=== PATIENT | female | born 1945 | race Caucasian/White ===

== ENCOUNTER 2017-10-04 12:57 | Emergency (ER) | payer OTHER ==
[~2017-10-04] VITALS: Ht 157.5 cm; Wt 79.2 kg
[~2017-10-04 12:57] MED LIST: ALBUAER19 INH; ALL100 PO; ALPH50CA2 PO; AMOX500C3 PO; APR25 PO; ASPI81TA21 PO; B-CO1CAP3 PO; BETAMETHASONE TD; CHOL200010 PO; CHOL4POW6 TOP; CLBCR15 EXT; CRSUNK PO; DPH/ PO; EFFSR150 PO; FENO145T26 PO; FLAXSEED PO; FLVHFAUNK INH; FRRG PO; GABA-112 PO; INSDGI SC; INSUINJ14 SC; LDXCR30 EX; LEVO-14 PO; LISI20TA3 PO; LTRCR15 TOP; METR1GEL3 TD; MOME200A INH; MONT1TAB3 PO; OMEG10007 PO; PANT40TA PO; PRDFOPS; PROP10TA7 PO; ROPI0.5T15 PO
[2017-10-04 13:13] VITALS: Ht 157.5 cm; Wt 79.2 kg
[2017-10-04] MEDS ORDERED: MoRPHine SULFATE 4 MG/ML 1 ML CARP\\VIAL IV STA (13:39)
[2017-10-04 14:09] LABS: BASO % 0.3 %; BASO ABS # 0.02 K/uL (0-0.2); EOS % 1.2 %; EOS ABS # 0.09 K/uL (0-0.5); HEMATOCRIT 44.7 % (37-47); HEMOGLOBIN 15.4 g/dL (12.0-16.0); IG# 0.04 K/uL (0.00-0.02); LYMPH % 16.9 %; LYMPH ABS # 1.32 K/uL (1.2-3.4); MEAN CELL VOLUME 99.6 fL (80-100); MEAN CORPUSCULAR HEMOGLOBIN 34.3 pg (25-34); MEAN CORPUSCULAR HGB CONC 34.5 g/dl (32-36); MONO % 10.5 %; MONO ABS # 0.82 K/uL (0.11-0.59); NEUT % 70.6 %; PLATELET COUNT 180 K/uL (130-400); RED CELL DISTRIBUTION WIDTH CV 13.4 % (11.5-14.5); RED CELL DISTRIBUTION WIDTH SD 48.4 fL (36.4-46.3); WHITE BLOOD COUNT 7.79 K/uL (4.8-10.8)
[2017-10-04 14:16] LABS: BLOOD UREA NITROGEN 24 mg/dl (7-18); CALCIUM 9.5 mg/dl (8.5-10.1); CARBON DIOXIDE 24 mmol/L (21-32); CREATININE 1.41 mg/dl (0.60-1.20); GLUCOSE 128 mg/dl (70-99); POTASSIUM 3.9 mmol/L (3.5-5.1); SODIUM 140 mmol/L (136-145)
[2017-10-04] MEDS ORDERED: PROCHLORPERAZINE 5 MG/ML 2 ML VIAL IV STA (14:45)
[2017-10-04] MEDS ORDERED: DiphenhydrAMINE HCL 50 MG/ML VIAL IV STA (14:45)
[2017-10-04] MEDS ORDERED: KETOROLAC TROMETHAMINE 60 MG/2 ML VIAL IV STA (14:45)
[2017-10-04] MEDS ORDERED: SODIUM CHLORIDE 0.9% 1000ML 1,000 ML IV STA (14:45)
[2017-10-04] MEDS ORDERED: VENL150T33 PO (15:30)
[2017-10-04] MEDS ORDERED: VNTHFA/IN INH (15:30)
[2017-10-04] MEDS ORDERED: LISI-461 PO (15:30)
[2017-10-04] MEDS ORDERED: ROSU40TA28 PO (15:30)
[2017-10-04] MEDS ORDERED: CHOL4POW4 PO (15:30)
[2017-10-04] MEDS ORDERED: GABA-1219 PO (15:30)
[2017-10-04] MEDS ORDERED: CLON0.5T3 PO (15:30)
[2017-10-04] MEDS ORDERED: ALLO100T PO (15:30)
[2017-10-04] MEDS ORDERED: NVLG SQ (15:31)
[2017-10-04] MEDS ORDERED: PRED20TA PO ×2 (15:42→16:38)
[2017-10-04] MEDS ORDERED: OXYC1TAB3 PO ×2 (15:42→16:38)
--- NOTE | 2017-10-04 15:45 | EMERGENCY ROOM VISIT NOTE ---
History First contact with patient: 13:23 Chief Complaint: FACIAL PAIN/INJURY Stated Complaint: PAIN FROM JEHOVAH'S WITNESS TO FR JAW LEFT SIDE, SWELLING History of Present Illness The patient is a 72 year old female who presents to the Emergency Room with complaints of left temporal/jaw pain. The patient reports that she has had pain in the left side of her head since yesterday evening. She had difficulty opening her mouth today due to the pain. The pain is worse with touch. The worst pain is located over the temporal region. She was seen at [facility] and they thought she may have temporal arteritis. She was sent here for further evaluation. She rates her discomfort a 10/10. She has taken Tylenol for pain with little relief. She denies any visual changes, numbness, weakness , blurred vision or slurred speech. She denies any chest pain or shortness of breath. She denies fevers, neck pain or stiffness. Review of Systems A complete 10 point review of systems was reviewed with the patient with pertinent positives and negatives as per history of present illness. All else were negative. Past Medical/Surgical History Medical Problems: (1) Diabetes mellitus, type II (2) Hypertension (3) Kidney disease Surgical Problems: (1) H/O colectomy Social History Smoking Status: Former Smoker Marital Status: Housing Status: lives with family Current/Historical Medications Scheduled Allopurinol (Zyloprim), 200 MG PO DAILY Alpha-Lipoic Acid (Thioctic Ac (Alpha Lipoic Acid), 1 CAP PO TID Aspirin Enteric Coated (Ecotrin Or Generic), 2 TABS PO QAM B-Complex Vitamins (B Complex), 1 CAP PO QAM Cholecalciferol (Vitamin D), 2 CAP PO QAM Cholestyramine (Cholestyramine), 4 GM PO BID Fenofibrate (Tricor ), 145 MG PO QPM Fish Oil ([place]-3), 1 CAP PO QAM Gabapentin (Gabapentin), 300 MG PO TID Insulin Aspart (Novolog), SQ UD Insulin Glargine (Lantus), 30 UNITS SC UD Levocetirizine Dihydrochloride (Levocetirizine Dihydrochl), 5 MG PO HS Lisinopril (Lisinopril), 10 MG PO DAILY Mometasone Furoate-Formoterol (Dulera 200/5 Mcg), 2 PUFFS INH BID Montelukast Sodium (Singulair), 10 MG PO QPM Pantoprazole Sodium (Protonix), 40 MG PO QAM Prednisone (Prednisone), 3 TABS PO DAILY Prednisone (Prednisone), 3 TABS PO DAILY Propranolol (Inderal), 10 MG PO BID Rosuvastatin Calcium (Rosuvastatin Calcium), 40 MG PO DAILY Venlafaxine Hcl (Venlafaxine Hcl Er), 150 MG PO DAILY Scheduled PRN Albuterol Hfa (Ventolin Hfa), 2-4 PUFFS INH Q6H PRN for Shortness of Breath Amoxicillin (Amoxil), 4 CAP PO 1 HOUR PRIOR TO PROC PRN for DENTAL PROCEDURES Clonazepam (Klonopin), 0.5 MG PO UD PRN for Anxiety and/or Sedation Oxycodone Ir (Roxicodone Ir), 1-2 TAB PO Q4H PRN for Pain Physical Exam Vital Signs Date Time Temp Pulse Resp B/P (MAP) Pulse Ox O2 Delivery O2 Flow Rate FiO2 10/04/17 15:56 36.7 84 20 151/75 95 10/04/17 13:13 36.7 84 20 151/75 95 Room Air Physical Exam VITALS: Vitals are noted on the nurse's note and reviewed by myself. Vital signs stable. GENERAL: This is a 72-year-old female, in no acute distress, nondiaphoretic, well-developed well-nourished. SKIN: The skin was without rashes. HEAD: Normocephalic atraumatic. There is significant tenderness to palpation over the left temporal region with light touch. EARS: External auditory canals clear, tympanic membranes pearly gonzales without erythema or effusion bilaterally. EYES: Pupils equal round and reactive to light and accommodation. Extraocular movements intact. Funduscopic exam reveals no papilledema or AV nicking. MOUTH: Mucous membranes moist. There are some whitish plaques within the mouth could be suggestive of candidiasis. NECK: Supple without nuchal rigidity. No lymphadenopathy. No meningismus. HEART: Regular rate and rhythm without murmurs gallops or rubs. LUNGS: Clear to auscultation bilaterally without wheezes, rales or rhonchi. NEURO: Patient was alert and oriented to person place and time. No focal neurological deficits. Medical Decision & Procedures Laboratory Results 10/04/17 13:45 Red Blood Count 4.49, Mean Corpuscular Volume 99.6, Mean Corpuscular Hemoglobin 34.3, Mean Corpuscular Hemoglobin Concent 34.5, Mean Platelet Volume 11.0, Neutrophils (%) (Auto) 70.6, Lymphocytes (%) (Auto) 16.9, Monocytes (%) (Auto) 10.5, Eosinophils (%) (Auto) 1.2, Basophils (%) (Auto) 0.3, Neutrophils # (Auto ) 5.50, Lymphocytes # (Auto) 1.32, Monocytes # (Auto) 0.82, Eosinophils # (Auto ) 0.09, Basophils # (Auto) 0.02 10/04/17 13:45 Test 10/04/17 13:42 10/04/17 13:45 Bedside Glucose 119 mg/dl (70-90) White Blood Count 7.79 K/uL (4.8-10.8) Red Blood Count 4.49 M/uL (4.2-5.4) Hemoglobin 15.4 g/dL (12.0-16.0) Hematocrit 44.7 % (37-47) Mean Corpuscular Volume 99.6 fL (80-100) Mean Corpuscular Hemoglobin 34.3 pg (25-34) Mean Corpuscular Hemoglobin Concent 34.5 g/dl (32-36) Platelet Count 180 K/uL (130-400) Mean Platelet Volume 11.0 fL (7.4-10.4) Neutrophils (%) (Auto) 70.6 % Lymphocytes (%) (Auto) 16.9 % Monocytes (%) (Auto) 10.5 % Eosinophils (%) (Auto) 1.2 % Basophils (%) (Auto) 0.3 % Neutrophils # (Auto) 5.50 K/uL (1.4-6.5) Lymphocytes # (Auto) 1.32 K/uL (1.2-3.4) Monocytes # (Auto) 0.82 K/uL (0.11-0.59) Eosinophils # (Auto) 0.09 K/uL (0-0.5) Basophils # (Auto) 0.02 K/uL (0-0.2) RDW Standard Deviation 48.4 fL (36.4-46.3) RDW Coefficient of Variation 13.4 % (11.5-14.5) Immature Granulocyte % (Auto) 0.5 % Immature Granulocyte # (Auto) 0.04 K/uL (0.00-0.02) Erythrocyte Sedimentation Rate 25 mm/hr (0-21) Anion Gap 11.0 mmol/L (3-11) Est Creatinine Clear Calc Drug Dose 34.6 ml/min Estimated GFR () 42.7 Estimated GFR (Non- 36.9 BUN/Creatinine Ratio 16.9 (10-20) Calcium Level 9.5 mg/dl (8.5-10.1) Troponin I < 0.015 ng/ml (0-0.045) C-Reactive Protein 0.85 mg/dl (0-0.29) Medications Administered Medications (Trade) Dose Ordered Sig/Rocky Route Start Time Stop Time Status Last Admin Dose Admin Morphine Sulfate (MoRPHine SULFATE INJ) 4 mg NOW STAT IV 10/04/17 13:39 10/04/17 13:40 DC 10/04/17 14:09 4 MG Sodium Chloride 1,000 ml @ 999 mls/hr Q1H1M STAT IV 10/04/17 14:45 10/04/17 15:45 DC 10/04/17 14:45 999 MLS/HR Prochlorperazine Edisylate (Compazine Inj) 10 mg NOW STAT IV 10/04/17 14:45 10/04/17 14:46 DC 10/04/17 15:00 10 MG Diphenhydramine HCl (Benadryl Inj) 25 mg NOW STAT IV 10/04/17 14:45 10/04/17 14:46 DC 10/04/17 15:00 25 MG Ketorolac Tromethamine (Toradol Inj) 15 mg NOW STAT IV 10/04/17 14:45 10/04/17 14:46 DC 10/04/17 15:00 15 MG Medical Decision Differential diagnosis includes temporal arteritis, CVA, TIA, migraine headache , meningitis, encephalitis, mass or mass effect, sinusitis, infection, tumor, among others. The patient is a 72-year-old female who presents today complaining of left head pain with tenderness in the temporal region. Exam and clinical history do seem consistent with temporal arteritis. No neuro deficits on exam. Labs revealed no leukocytosis. ESR mildly elevated at 25. CRP is also slightly elevated at 0.85. Creatinine is 1.41, which is patient's baseline. I did discuss the case with Dr. Vargas of neurology. He is unsure if this truly represents temporal arteritis but feels it is reasonable to start the patient on steroids. He recommended follow-up with the patient's PCP in the office. She was instructed to follow-up with them within 48 hours and arrange neurology follow-up as well. She will be placed on 60 mg of prednisone for 2 weeks and will require further taper after that. She was given OxyIR for pain. She was advised that the prednisone may affect her blood sugars and she should check them more frequently. She was advised to use a stool softener while taking narcotic pain medication. She was instructed to return here if she develops vision changes, worsening pain, neck pain/stiffness, or any other new/concerning symptoms. The patient was independently evaluated by Dr. Madrid, ED attending physician, who agreed with my assessment and treatment plan. Based on the patient's presentation and work up, I feel the patient is stable for outpatient treatment. The patient was educated to return to the emergency department for any worsening of their current condition or new/concerning symptoms. She will follow up with her PCP and neurology. [place] Drug Monitoring Program Search Results: patient reviewed within database, no issues identified Medication Reconcilliation Current Medication List: was personally reviewed by me Blood Pressure Screening Patient's blood pressure: Elevated blood pressure Blood pressure disposition: Elevated BP felt to be situational Impression Primary Impression: Temporal arteritis Departure Information Dispostion Home / Self-Care Condition GOOD Prescriptions Prednisone (Prednisone) 20 Mg Tab 3 TABS PO DAILY for 14 Days, #42 TAB 3 DAILY FOR 3 DAYS, THEN 2 DAILY FOR 3 DAYS, THEN 1 DAILY FOR 3 DAYS. Prov: Sofi Rojas PA-C 10/04/17 Oxycodone Ir (Roxicodone Ir) 5 Mg Tab 1-2 TAB PO Q4H Y for Pain, #24 TAB For Initial Treatment Prov: Sofi Rojas PA-C 10/04/17 Prednisone (Prednisone) 20 Mg Tab 3 TABS PO DAILY for 14 Days, #42 TAB 3 DAILY FOR 3 DAYS, THEN 2 DAILY FOR 3 DAYS, THEN 1 DAILY FOR 3 DAYS. Prov: Sofi Rojas PA-C 10/04/17 Referrals Jonathan Wagner M.D. (MEDICAL) (PCP) Sam, E. Rajinder, M.D. Patient Instructions My [facility] Additional Instructions You have been prescribed Prednisone. This is a steroid which will help decrease your inflammation. It is best to take steroids early in the morning as PM dosing can affect your sleeping patterns. This medication may raise your blood sugars. You have been prescribed OxyIR to be used for pain control. Take 1-2 tablets every 4-6 hours as needed for pain. This is a narcotic medication. You cannot drive or consume alcohol while on this medicine. This medicine should only be used for pain that cannot be controlled with [id number] pain medicines. You should take a stool softener while taking this medication as it may cause constipation. Follow-up with your primary care provider this week and neurology. Return to the emergency department with numbness, weakness, severe headache, vomiting, fever or any other new/concerning symptoms.
[2017-10-04 15:56] VITALS: BP 151/75; PULSE 84; TEMP 36.7; O2SAT 95
--- NOTE | 2017-10-04 18:17 | EMERGENCY ROOM VISIT NOTE ---
ED Visit Note First contact with patient: 13:55 The patient was seen and examined with Bob. I agree with the history, physical and findings. Please see the note for disposition and details.
== END 2017-10-04 15:57 | disposition home or self-care (01) ==
LOC: C.EDB 12:58 → C.EDD 15:57
DX: R51 Headache (principal); R68.84 Jaw pain; R70.0 Elevated erythrocyte sedimentation rate; R79.82 Elevated C-reactive protein (CRP); E11.22 Type 2 diabetes mellitus with diabetic chronic kidney disease; N18.9 Chronic kidney disease, unspecified; I12.9 Hypertensive chronic kidney disease with stage 1 through stage 4 chronic kidney disease, or unspecified chronic kidney disease; Z87.891 Personal history of nicotine dependence; Z79.82 Long term (current) use of aspirin; Z79.4 Long term (current) use of insulin

== ENCOUNTER 2017-10-12 19:41 | Inpatient (IN) | payer OTHER ==
[~2017-10-12] VITALS: Ht 157.5 cm; Wt 76.8 kg
[~2017-10-12 19:41] MED LIST changes: -ALBUAER19 INH; -ALL100 PO; +ALLO100T PO; -APR25 PO; -BETAMETHASONE TD; +CHOL4POW4 PO; -CHOL4POW6 TOP; -CLBCR15 EXT; +CLON0.5T3 PO; -CRSUNK PO; -DPH/ PO; -EFFSR150 PO; -FLAXSEED PO; -FLVHFAUNK INH; -FRRG PO; -GABA-112 PO; +GABA-1219 PO; -INSUINJ14 SC; -LDXCR30 EX; +LISI-461 PO; -LISI20TA3 PO; -LTRCR15 TOP; -METR1GEL3 TD; +NVLG SQ; +OXYC1TAB3 PO; -PRDFOPS; +PRED20TA PO; -ROPI0.5T15 PO; +ROSU40TA28 PO; +VENL150T33 PO; +VNTHFA/IN INH
[2017-10-12] MEDS ORDERED: ALBUT/IPRATROP 3MG/0.5MG NEB 3 ML VIAL INH STA (21:50)
--- NOTE | 2017-10-12 22:03 | DIAGNOSTIC IMAGING REPORT ---
CHEST ONE VIEW PORTABLE CLINICAL HISTORY: Sepsis dyspnea COMPARISON STUDY: 03/26/2010 FINDINGS: Poorly defined minimal parenchymal infiltrate left base. Lungs otherwise are clear. No significant cardiac enlargement. Diaphragms are smooth. IMPRESSION: Poorly defined patchy parenchymal infiltrate left base. The above report was generated using voice recognition software. It may contain grammatical, syntax or spelling errors. Electronically signed by: Jarod Peralta M.D. 10/12/2017 10:02 PM Dictated Date/Time: 10/12/2017 10:01 PM
[2017-10-12] MEDS ORDERED: LEVAQUIN 750MG / 150ML D5W IV STA (22:29)
[2017-10-12 22:36] LABS: INFLUENZA B ANTIGEN Neg for Influ B (NEG)
[2017-10-12 22:37] LABS: HEMATOCRIT 44.7 % (37-47); HEMOGLOBIN 15.9 g/dL (12.0-16.0); MEAN CELL VOLUME 99.1 fL (80-100); MEAN CORPUSCULAR HEMOGLOBIN 35.3 pg (25-34); MEAN CORPUSCULAR HGB CONC 35.6 g/dl (32-36); MEAN PLATELET VOLUME 10.5 fL (7.4-10.4); PLATELET COUNT 221 K/uL (130-400); RED CELL DISTRIBUTION WIDTH CV 13.1 % (11.5-14.5); RED CELL DISTRIBUTION WIDTH SD 47.4 fL (36.4-46.3); WHITE BLOOD COUNT 11.23 K/uL (4.8-10.8)
[2017-10-12 22:48] LABS: INR 1.1 (0.9-1.1); PTT PATIENT 35.5 SECONDS (21.0-31.0)
[2017-10-12 22:58] LABS: BASO % 0.2 %; BASO ABS # 0.02 K/uL (0-0.2); EOS % 0.3 %; EOS ABS # 0.03 K/uL (0-0.5); IG# 0.07 K/uL (0.00-0.02); LYMPH % 10.9 %; LYMPH ABS # 1.22 K/uL (1.2-3.4); MONO % 15.5 %; MONO ABS # 1.74 K/uL (0.11-0.59); NEUT % 72.5 %; NEUT ABS # 8.15 K/uL (1.4-6.5)
[2017-10-12 23:02] LABS: ALBUMIN 2.8 gm/dl (3.4-5.0); ALT/SGPT 22 U/L (12-78); BLOOD UREA NITROGEN 16 mg/dl (7-18); CALCIUM 9.6 mg/dl (8.5-10.1); CARBON DIOXIDE 27 mmol/L (21-32); CREATININE 1.19 mg/dl (0.60-1.20); GLUCOSE 142 mg/dl (70-99); LIPASE 138 U/L (73-393); POTASSIUM 4.1 mmol/L (3.5-5.1); SODIUM 131 mmol/L (136-145)
[2017-10-12] MEDS ORDERED: OXYC1TAB3 PO (23:06)
[2017-10-12] MEDS ORDERED: PRED20TA PO (23:08)
[2017-10-12 23:09] LABS: ALKALINE PHOSPHATASE 69 U/L (45-117); AST/SGOT 25 U/L (15-37); CKMB 0.6 ng/ml (0.5-3.6); PHOSPHORUS 2.2 mg/dl (2.5-4.9); TOTAL PROTEIN 8.4 gm/dl (6.4-8.2)
[2017-10-12] MEDS ORDERED: SODIUM CHLORIDE 0.9% 1000ML 1,000 ML IV STA (23:17)
--- NOTE | 2017-10-12 23:54 | EMERGENCY ROOM VISIT NOTE ---
History Report prepared by Kenyon: Carol Dominique Under the Supervision of: Dr. Ayo Carroll D.O. First contact with patient: 21:43 Chief Complaint: OTHER COMPLAINT Stated Complaint: HEADACHE,WEAK,SPUTUM W/ BLOOD History of Present Illness The patient is a 72 year old female who presents to the Emergency Room with complaints of persistent cough starting 3 days ago. The patient started coughing up thick sputum with blood today. She is feeling SOB. She has been bedridden for the past 3 days. She has no appetite and is unsteady on her feet. She has had a fever of 101. She has had these symptoms previously with pneumonia. She denies any history of PE or DVT. She is on baby aspirin. She does not smoke. She denies any alcohol use. She has a history of diabetes and stage 4 kidney disease. She has a history of bronchitis and pneumonia. She denies any history of tuberculosis. Her has had a cough recently. The patient was seen in the ED last week with headache and face pain. Her PCP said that she might have an inflamed temporal artery. Source of History: patient, family Onset: 3 days ago Position: other (global) Quality: other (cough) Timing: other (persistent) Associated Symptoms: + fevers, + SOB Note: Pt reports hemoptysis, decreased appetite. Review of Systems See HPI for pertinent positives & negatives. A total of 10 systems reviewed and were otherwise negative. Past Medical & Surgical Medical Problems: (1) Diabetes mellitus, type II (2) Hypertension (3) Kidney disease Surgical Problems: (1) H/O colectomy Family History No pertinent family history stated. Social History Smoking Status: Never Smoker Marital Status: Housing Status: lives with family Occupation Status: retired Current/Historical Medications Scheduled Allopurinol (Zyloprim), 200 MG PO DAILY Alpha-Lipoic Acid (Thioctic Ac (Alpha Lipoic Acid), 1 CAP PO TID Aspirin Enteric Coated (Ecotrin Or Generic), 2 TABS PO QAM B-Complex Vitamins (B Complex), 1 CAP PO QAM Cholecalciferol (Vitamin D), 2 CAP PO QAM Cholestyramine (Cholestyramine), 4 GM PO BID Fenofibrate (Tricor ), 145 MG PO QPM Fish Oil ([place]-3), 1 CAP PO QAM Gabapentin (Gabapentin), 300 MG PO TID Insulin Aspart (Novolog), SQ UD Insulin Glargine (Lantus), 30 UNITS SC UD Levocetirizine Dihydrochloride (Levocetirizine Dihydrochl), 5 MG PO HS Lisinopril (Lisinopril), 10 MG PO DAILY Mometasone Furoate-Formoterol (Dulera 200/5 Mcg), 2 PUFFS INH BID Montelukast Sodium (Singulair), 10 MG PO QPM Pantoprazole Sodium (Protonix), 40 MG PO QAM Prednisone (Prednisone), 3 TAB PO DAILY Propranolol (Inderal), 10 MG PO BID Rosuvastatin Calcium (Rosuvastatin Calcium), 40 MG PO DAILY Venlafaxine Hcl (Venlafaxine Hcl Er), 150 MG PO DAILY Scheduled PRN Albuterol Hfa (Ventolin Hfa), 2-4 PUFFS INH Q6H PRN for Shortness of Breath Amoxicillin (Amoxil), 4 CAP PO 1 HOUR PRIOR TO PROC PRN for DENTAL PROCEDURES Clonazepam (Klonopin), 0.5 MG PO UD PRN for Anxiety and/or Sedation Oxycodone Ir (Roxicodone Ir), 1-2 TAB PO Q4H PRN for Severe Pain Allergies Coded Allergies: Formaldehyde (Verified Allergy, Unknown, SKIN IRRTIATION AND PEELING, 10/12) Isothiazolinone Chloride (Verified Allergy, Unknown, SKIN IRRITATION AND PEELING, 10/12/17) Quaternium-15 (Verified Allergy, Unknown, SKIN IRRITATION AND PEELING, ) Physical Exam Vital Signs Date Time Temp Pulse Resp B/P (MAP) Pulse Ox O2 Delivery O2 Flow Rate FiO2 10/13/17 01:28 92 10/13/17 01:25 93 18 184/82 94 Room Air 10/12/17 23:40 87 18 153/69 94 Room Air 10/12/17 22:05 91 18 178/90 92 Room Air 10/12/17 21:59 92 Room Air 10/12/17 21:54 89 10/12/17 20:26 36.3 95 18 159/76 95 Room Air Physical Exam GENERAL: Patient is awake, alert, mildly anxious appearing, but comfortable. EYES: The conjunctivae are clear. The pupils are round and reactive. EARS, NOSE, MOUTH AND THROAT: The nose is without any evidence of any deformity. Mucous membranes are moist tongue is midline NECK: The neck is nontender and supple. RESPIRATORY: Lung sounds diminished throughout with scattered rhonchi. CARDIOVASCULAR: Tachycardic but regular. No definite murmur noted. GASTROINTESTINAL: The abdomen is soft. Bowel sounds are present in all quadrants. Abdomen is nontender MUSCULOSKELETAL/EXTREMITIES: There is no evidence of gross deformity full range of motion is noted in the hips and shoulders SKIN: There is no obvious evidence of any rash. There are no petechiae, pallor or cyanosis noted. NEUROLOGIC: Patient is awake alert and oriented x3 Medical Decision & Procedures ER Provider Diagnostic Interpretation: X-ray results as stated below per interpretation by me and the radiologist. CHEST ONE VIEW PORTABLE CLINICAL HISTORY: Sepsis dyspnea COMPARISON STUDY: 03/26/2010 FINDINGS: Poorly defined minimal parenchymal infiltrate left base. Lungs otherwise are clear. No significant cardiac enlargement. Diaphragms are smooth. IMPRESSION: Poorly defined patchy parenchymal infiltrate left base. The above report was generated using voice recognition software. It may contain grammatical, syntax or spelling errors. Electronically signed by: Jarod Peralta M.D. 10/12/2017 10:02 PM Dictated Date/Time: 10/12/2017 10:01 PM Laboratory Results 10/12/17 22:00 Red Blood Count 4.51, Mean Corpuscular Volume 99.1, Mean Corpuscular Hemoglobin 35.3, Mean Corpuscular Hemoglobin Concent 35.6, Mean Platelet Volume 10.5, Neutrophils (%) (Auto) 72.5, Lymphocytes (%) (Auto) 10.9, Monocytes (%) (Auto) 15.5, Eosinophils (%) (Auto) 0.3, Basophils (%) (Auto) 0.2, Neutrophils # (Auto ) 8.15, Lymphocytes # (Auto) 1.22, Monocytes # (Auto) 1.74, Eosinophils # (Auto ) 0.03, Basophils # (Auto) 0.02 10/12/17 22:00 Test 10/12/17 21:55 10/12/17 22:00 10/12/17 22:15 10/12/17 22:17 Influenza Type A (RT-PCR) POS for Influ A (NEG) Influenza Type A Antigen Neg for Influ A (NEG) Influenza Type B Antigen Neg for Influ B (NEG) Influenza Type B (RT-PCR) Neg for Influ B (NEG) White Blood Count 11.23 K/uL (4.8-10.8) Red Blood Count 4.51 M/uL (4.2-5.4) Hemoglobin 15.9 g/dL (12.0-16.0) Hematocrit 44.7 % (37-47) Mean Corpuscular Volume 99.1 fL (80-100) Mean Corpuscular Hemoglobin 35.3 pg (25-34) Mean Corpuscular Hemoglobin Concent 35.6 g/dl (32-36) Platelet Count 221 K/uL (130-400) Mean Platelet Volume 10.5 fL (7.4-10.4) Neutrophils (%) (Auto) 72.5 % Lymphocytes (%) (Auto) 10.9 % Monocytes (%) (Auto) 15.5 % Eosinophils (%) (Auto) 0.3 % Basophils (%) (Auto) 0.2 % Neutrophils # (Auto) 8.15 K/uL (1.4-6.5) Lymphocytes # (Auto) 1.22 K/uL (1.2-3.4) Monocytes # (Auto) 1.74 K/uL (0.11-0.59) Eosinophils # (Auto) 0.03 K/uL (0-0.5) Basophils # (Auto) 0.02 K/uL (0-0.2) RDW Standard Deviation 47.4 fL (36.4-46.3) RDW Coefficient of Variation 13.1 % (11.5-14.5) Immature Granulocyte % (Auto) 0.6 % Immature Granulocyte # (Auto) 0.07 K/uL (0.00-0.02) Erythrocyte Sedimentation Rate > 90 mm/hr (0-21) Prothrombin Time 11.5 SECONDS (9.0-12.0) Prothromb Time International Ratio 1.1 (0.9-1.1) Activated Partial Thromboplast Time 35.5 SECONDS (21.0-31.0) Partial Thromboplastin Ratio 1.4 Anion Gap 11.0 mmol/L (3-11) Est Creatinine Clear Calc Drug Dose 40.4 ml/min Estimated GFR () 52.4 Estimated GFR (Non- 45.3 BUN/Creatinine Ratio 13.8 (10-20) Calcium Level 9.6 mg/dl (8.5-10.1) Phosphorus Level 2.2 mg/dl (2.5-4.9) Magnesium Level 1.9 mg/dl (1.8-2.4) Total Bilirubin 0.5 mg/dl (0.2-1) Aspartate Amino Transf (AST/SGOT) 25 U/L (15-37) Alanine Aminotransferase (ALT/SGPT) 22 U/L (12-78) Alkaline Phosphatase 69 U/L (45-117) Total Creatine Kinase 161 U/L (26-192) Creatine Kinase MB 0.6 ng/ml (0.5-3.6) Creatine Kinase MB Ratio 0.4 (0-3.0) Troponin I < 0.015 ng/ml (0-0.045) C-Reactive Protein 33.00 mg/dl (0-0.29) Pro-B-Type Natriuretic Peptide 281 pg/ml (0-900) Total Protein 8.4 gm/dl (6.4-8.2) Albumin 2.8 gm/dl (3.4-5.0) Globulin 5.6 gm/dl (2.5-4.0) Albumin/Globulin Ratio 0.5 (0.9-2) Lipase 138 U/L (73-393) Bedside D-Dimer > 450 ng/mlFEU (0-450) Bedside Lactic Acid Venous 1.67 mmol/L (0.90-1.70) Test 10/12/17 22:21 Venous Blood pH 7.42 (7.36-7.41) Venous Blood Partial Pressure CO2 42 mmHg (38.0-50.0) Venous Blood Partial Pressure O2 65 mmHg Venous Blood HCO3 27 mmol/L Venous Blood Oxygen Saturation 92.6 % Venous Blood Base Excess 1.9 mEq/L Laboratory results per my review. Medications Administered Medications (Trade) Dose Ordered Sig/Rocky Route Start Time Stop Time Status Last Admin Dose Admin Albuterol/ Ipratropium (Duoneb) 3 ml NOW STAT INH 10/12/17 21:50 10/12/17 21:51 DC 10/12/17 22:04 3 ML Levofloxacin (Levaquin / D5W) 750 mg NOW STAT IV 10/12/17 22:29 10/12/17 22:30 DC 10/12/17 22:34 750 MG Sodium Chloride 1,000 ml @ 999 mls/hr Q1H1M STAT IV 10/12/17 23:17 10/13/17 00:17 DC 10/12/17 23:40 999 MLS/HR Methylprednisolone Sodium Succinate (Solu-Medrol IV) 20 mg NOW STAT IV 10/13/17 00:51 10/13/17 00:52 DC 10/13/17 01:11 20 MG ECG Per My Interpretation Indication: SOB/dyspnea Rate (beats per minute): 91 Rhythm: normal sinus Findings: no ectopy, other (no acute ST segment abnormality) Comparison ECG Date: 04-Oct-2017 Change: Resolution of PVC otherwise no significant change. ED Course 2145: The patient was evaluated in room A2. A complete history and physical examination were performed. 0: Duoneb 3 ml INH. 2228: Levofloxacin 750 mg IV. 8: I reevaluated the patient. I updated her and her family on the results. 2317: NSS 1000 ml @ 999 mls/hr IV. 2318: Upon reevaluation, the patient is stable. I discussed results and treatment plan with her and her family. They verbalizes agreement and understanding. The patient will be evaluated for further management and care. 2332: I discussed the patient's [facility] The patient will be evaluated for further management. Medical Decision Prior records/ancillary studies reviewed. Triage Nursing notes reviewed. Additional history obtained from the family. The patient's history was concerning for respiratory difficulties. Differential diagnosis: Etiologies such as infections, reactive airway disease, pneumonia, pneumothorax , COPD, CHF, cardiac ischemia, pulmonary embolism, musculoskeletal, gastrointestinal, as well as others were entertained. The patient is a 72-year-old female who presented to the emergency department for evaluation of cough. The patient had a productive cough. She had bloody sputum noted. She appears to have a history and physical exam consistent with pneumonia. The patient was treated with IV fluids bronchodilator therapy and IV antibiotics. She was reevaluated multiple times. I discussed patient's laboratory and radiographic studies with her and her family members. I also discussed her case with the on-call [facility] group. They have agreed to evaluate the patient in the emergency department for further management and disposition. Medication Reconcilliation Current Medication List: was personally reviewed by me Blood Pressure Screening Patient's blood pressure: Elevated blood pressure Blood pressure disposition: Referred to PCP Consults Time Called: 2320 Consulting Physician: Dr. Stahl [facility] hospitalist Returned Call: [phone] I discussed the patient's case with him. The patient will be evaluated for further management. Impression Primary Impression: Pneumonia Scribe Attestation The scribe's documentation has been prepared under my direction and personally reviewed by me in its entirety. I confirm that the note above accurately reflects all work, treatment, procedures, and medical decision making performed by me. Departure Information Dispostion Being Evaluated By Hospitalist Referrals Jonathan Wagner M.D. (MEDICAL) (PCP) Patient Instructions My [facility] Problem Qualifiers Primary Impression: Pneumonia Pneumonia type: due to unspecified organism Laterality: left Lung location : unspecified part of lung Qualified Codes: J18.9 - Pneumonia, unspecified organism
[2017-10-13] MEDS ORDERED: METHYLPREDNISOLONE IV 20 MG in SYRINGE 0 ML IV STA ×2 (00:44→03:17)
[2017-10-13] MEDS ORDERED: OPTIRAY 320 IV PRN (01:00)
[2017-10-13 01:41] LABS: INFLUENZA A PCR POS for Influ A (NEG); INFLUENZA B PCR Neg for Influ B (NEG)
[2017-10-13] MEDS ORDERED: OSELTAMIVIR PHOSPHATE 75 MG CAP PO STA (02:24)
[2017-10-13] MEDS: OSELTAMIVIR PHOSPHATE 75 MG CAP PO SCH (02:38)
[2017-10-13] MEDS ORDERED: LEVALBUTEROL/IPRATROPIUM NEB INH SCH (03:00)
[2017-10-13] MEDS ORDERED: OXYCODONE HCL IR 5 MG TAB (IMMEDIATE RELEASE) PO PRN (03:00)
[2017-10-13] MEDS ORDERED: LEVALBUTEROL/IPRATROPIUM NEB INH PRN (03:00)
[2017-10-13] MEDS ORDERED: CLONAZEPAM 0.5 MG TAB PO PRN (03:00)
[2017-10-13] MEDS ORDERED: DOXYCYCLINE IV 100 MG in DEXTROSE 5% 100ML 100 ML IV STA (03:15)
[2017-10-13] MEDS ORDERED: GLUCOSE 10 TABS/TUBE PO PRN (03:15)
[2017-10-13] MEDS ORDERED: DEXTROSE 50% 50 ML SYR IV PRN (03:15)
[2017-10-13] MEDS ORDERED: INSULIN ASPART 100 UNITS/ML 3 ML PEN SC STA (03:15)
[2017-10-13] MEDS ORDERED: GLUCAGON FOR INJ 1 MG VIAL SQ PRN (03:15)
[2017-10-13] MEDS ORDERED: MoRPHine SULFATE 4 MG/ML 1 ML CARP\\VIAL IV PRN (03:15)
[2017-10-13] MEDS ORDERED: ACETAMINOPHEN 325 MG TAB PO PRN ×2 (03:15→09:15)
[2017-10-13] MEDS ORDERED: GLUCOSE 40% GEL 15 GM TUBE PO PRN (03:15)
[2017-10-13] MEDS ORDERED: PROCHLORPERAZINE INJ 5 MG in SYRINGE 4 ML IV PRN (03:15)
[2017-10-13] MEDS ORDERED: INSULIN GLARGINE SOLOSTAR 100 UNITS/ML 3 ML PEN SC STA (03:16)
[2017-10-13] MEDS ORDERED: LEVALBUTEROL 1.25MG/0.5ML NEB INH PRN (03:30)
[2017-10-13] MEDS ORDERED: IPRATROPIUM BROMIDE NEB SOLN 0.02% 2.5 ML VIAL INH PRN (03:30)
[2017-10-13] MEDS ORDERED: NSS + 20MEQ KCL 1000ML 1,000 ML IV ONE (04:00)
[2017-10-13 04:50] VITALS: BP 166/84; PULSE 89; TEMP 36.7; Ht 157.5 cm; Wt 76.8 kg
[2017-10-13] MEDS ORDERED: PROPRANOLOL HCL 10 MG TAB PO ONE (05:05)
--- NOTE | 2017-10-13 06:50 | DIAGNOSTIC IMAGING REPORT ---
CT ANGIOGRAM OF THE CHEST CLINICAL HISTORY: Atypical chest pain. Hemoptysis. COMPARISON STUDY: Chest x-ray dated 10/12/2017 TECHNIQUE: Following the IV administration of 92 mL of Optiray-320, CT angiogram of the thorax was performed from the thoracic inlet to the lung bases utilizing the pulmonary embolus protocol. Images are reviewed in the axial, sagittal, and coronal planes. IV contrast was administered without complication. MIP imaging was performed. A dose lowering technique was utilized adhering to the principles of ALARA. CT DOSE: FINDINGS: There are multiple mediastinal lymph nodes at the upper limits of normal in size. There was no evidence of thoracic aortic dilatation. There is respiratory motion artifact. There are no pulmonary artery filling defects to indicate acute pulmonary embolism. No pleural effusions are visualized. The study is compromised due to respiratory motion artifact. There is no lobar consolidation. There are no pleural effusions. There is mild bronchial wall thickening. There is evidence of tracheomalacia. There is a 7 mm solid right lower lobe pulmonary nodule as visualized in image #[id number]. There are scattered ill-defined upper lobe nodules, statistically infectious/inflammatory. IMPRESSION: 1. Study limited secondary to respiratory motion artifact 2. No evidence of acute pulmonary embolism 3. Tracheomalacia 4. Areas of bronchial wall thickening and ill-defined nodularity, statistically infectious/inflammatory 5. 7 mm solid right lower lobe pulmonary nodule. Follow-up per Fleischner criteria is recommended. Please refer to below summary of Fleischner criteria recommendations for follow-up of incidental CT nodules (Kasandra Newell, Guidelines for management of small pulmonary nodules detected on CT scans: A statement from the Fleischner Society, Radiology 237: [phone].) SOLID NODULES Solitary nodule size: <6 mm * low risk patients: no follow-up needed * high risk patients: optional CT at 12 months Solitary nodule size: 6-8 mm * low risk patients: follow-up at 6-12 months, then consider further follow-up at 18-24 months * high risk patients: initial follow-up CT at 6-12 months and then at 18-24 months if no change Solitary nodule size: >8 mm * either low or high risk patients - consider follow-up CT at 3 months, and/or CT-PET, and/or biopsy Multiple nodules size: <6 mm * low risk patients: no routine follow-up * high risk patients: optional CT at 12 months Multiple nodules size: 6-8 mm * low risk patients: follow-up at 3-6 months, then consider further follow-up at 18-24 months * high risk patients: follow-up at 3-6 months, then at 18-24 months if no change Multiple nodules size: >8 mm * low risk patients: follow-up at 3-6 months, then consider further follow-up at 18-24 months * high risk patients: follow-up at 3-6 months, then at 18-24 months if no change Note: newly detected indeterminate nodule in persons 35 years of age or older. * low risk patients: minimal or absent history of smoking and/or other known risk factors * high risk patients: history of smoking or of other known risk factors (e.g. first degree relative with lung cancer, or exposure to asbestos, radon, uranium) * if a nodule up to 8 mm is partly solid or is ground glass further follow-up is required after 24 months to exclude possible slow growing adenocarcinoma (VIOLET) SUBSOLID NODULES Solitary pure ground-glass nodule * nodule size <6 mm - no CT follow-up required * nodule size >=6 mm - follow-up CT at 6-12 months, then every 2 years until 5 years Solitary part-solid nodule * nodule size <6 mm - no CT follow-up required * nodule size >=6 mm - follow-up CT at 3-6 months. If unchanged, and solid component remains <6 mm, then annual follow-up for 5 years Multiple subsolid nodules * nodule size <6 mm - follow-up CT at 3-6 months, consider further follow-up at 2 and 4 years if stable * nodule size >=6 mm - follow-up CT at 3-6 months, subsequent management based on the most suspicious nodule(s) Electronically signed by: Sven Cantu M.D. 10/13/2017 6:48 AM Dictated Date/Time: 10/13/2017 6:43 AM
--- NOTE | 2017-10-13 07:14 | DIAGNOSTIC IMAGING REPORT ---
CT OF THE HEAD WITHOUT CONTRAST CLINICAL HISTORY: Headache. COMPARISON STUDY: Head CT February 15, 2007 and MRI of the brain November 26, 2007. CT DOSE: 2002.43 mGy.cm TECHNIQUE: Helical axial images of the head were obtained without IV contrast. Automated exposure control was utilized for the study. A dose lowering technique was utilized adhering to the principles of ALARA. FINDINGS: No acute intracranial hemorrhage, midline shift or mass effect is present. Ventricular system is normal. Basilar cisterns are patent. There are no extra-axial collections. Garcia-white differentiation is maintained. There are no findings to suggest acute dural sinus thrombosis or acute territorial infarct. There are no significant calvarial abnormalities. The bilateral maxillary sinuses are nearly completely opacified. There is extensive mucosal thickening with the remainder of the sinuses with air-fluid levels within the frontal and sphenoid sinuses. IMPRESSION: 1. No acute intracranial findings. 2. Pansinusitis, possibly acute. Electronically signed by: Estrada Salinas M.D. 10/13/2017 7:12 AM Dictated Date/Time: 10/13/2017 7:10 AM
[2017-10-13 07:27] VITALS: BP 126/70; PULSE 88; TEMP 36.7; O2SAT 92
[2017-10-13 07:34] LABS: BASO % 0.2 %; BASO ABS # 0.02 K/uL (0-0.2); IG# 0.04 K/uL (0.00-0.02); LYMPH % 6.6 %; LYMPH ABS # 0.65 K/uL (1.2-3.4); MEAN CELL VOLUME 99.1 fL (80-100); MEAN CORPUSCULAR HEMOGLOBIN 35.4 pg (25-34); MEAN CORPUSCULAR HGB CONC 35.7 g/dl (32-36); MEAN PLATELET VOLUME 10.7 fL (7.4-10.4); MONO % 5.2 %; MONO ABS # 0.51 K/uL (0.11-0.59); NEUT % 87.6 %; NEUT ABS # 8.65 K/uL (1.4-6.5); PLATELET COUNT 187 K/uL (130-400); RED CELL DISTRIBUTION WIDTH CV 13.2 % (11.5-14.5); RED CELL DISTRIBUTION WIDTH SD 47.4 fL (36.4-46.3); WHITE BLOOD COUNT 9.87 K/uL (4.8-10.8)
[2017-10-13] MEDS: LEVALBUTEROL 1.25MG/0.5ML NEB INH SCH ×3 (07:37→20:08)
[2017-10-13] MEDS: IPRATROPIUM BROMIDE NEB SOLN 0.02% 2.5 ML VIAL INH SCH ×3 (07:37→20:08)
[2017-10-13] MEDS: ALLOPURINOL 100 MG TAB PO SCH (07:38)
[2017-10-13] MEDS: ROSUVASTATIN CALCIUM 20 MG TAB PO SCH (07:39)
[2017-10-13] MEDS: GABAPENTIN 300 MG CAP PO SCH ×3 (07:39→21:52)
[2017-10-13] MEDS: VITAMIN B COMPLEX TAB PO SCH (07:39)
[2017-10-13] MEDS: LISINOPRIL 10 MG TAB PO SCH (07:39)
[2017-10-13] MEDS: ASPIRIN 81 MG ECTAB PO SCH (07:39)
[2017-10-13] MEDS: ENOXAPARIN 40 MG/0.4 ML SYR SQ SCH (07:39)
[2017-10-13] MEDS: VENLAFAXINE HCL XR 150 MG CAPXR PO SCH (07:39)
[2017-10-13] MEDS: PANTOprazole SOD 40 MG TAB PO SCH (07:39)
[2017-10-13] MEDS ORDERED: PROPRANOLOL HCL 10 MG TAB PO SCH (08:00)
[2017-10-13] MEDS: INSULIN ASPART 100 UNITS/ML 3 ML PEN SC SCH ×4 (08:35→22:05)
[2017-10-13] MEDS: INSULIN GLARGINE SOLOSTAR 100 UNITS/ML 3 ML PEN SC SCH ×2 (08:35→22:04)
--- NOTE | 2017-10-13 08:41 | DIAGNOSTIC IMAGING REPORT ---
ABDOMEN AND PELVIS CT WITH IV CONTRAST CT DOSE: HISTORY: Generalized abdominal pain. TECHNIQUE: Multiaxial CT images of the abdomen and pelvis were performed following the use of intravenous contrast. A dose lowering technique was utilized adhering to the principles of ALARA. COMPARISON STUDY: None. FINDINGS: Mild motion artifact. Please refer to the dedicated chest CT performed today for further evaluation of the lung bases. No pneumoperitoneum. No pneumatosis. No acute fractures within the visualized osseous structures. No hepatic or splenic masses. A few calcified splenic granulomas. The gallbladder, pancreas, and adrenal glands are unremarkable. No retroperitoneal lymphadenopathy. Multiple bilateral subcentimeter renal hypodense lesions. These are too small to characterize but statistically represent cysts. No hydronephrosis. The uterus is surgically absent. The bladder is not well-distended but likely unremarkable. Postoperative changes consistent with total proctocolectomy. No dilated loops of small bowel to suggest an obstruction. Right lower quadrant ileostomy. Small peristomal hernia. IMPRESSION: 1. 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 2. No bowel wall thickening or obstruction. 3. Small right lower quadrant peristomal hernia. Electronically signed by: Thad Henry M.D. 10/13/2017 8:40 AM Dictated Date/Time: 10/13/2017 8:35 AM
[2017-10-13 08:53] LABS: CALCIUM 9.5 mg/dl (8.5-10.1); CREATININE 1.08 mg/dl (0.60-1.20); POTASSIUM 4.5 mmol/L (3.5-5.1)
--- NOTE | 2017-10-13 09:24 | Progress Note ---
Progress Note Date of Service Oct 13, 2017. Progress Note Subjective: Patient seen and examined around 9 AM this morning. Daughter at bedside. Patient returns from bathroom and ambulating on room air. Patient does report history of headaches but not in pain currently Physical Exam General: no acute distress HEENT: breathing on room air Lungs: good air entry, no wheezing Heart: RRR Imaging CTA 1. Study limited secondary to respiratory motion artifact 2. No evidence of acute pulmonary embolism 3. Tracheomalacia 4. Areas of bronchial wall thickening and ill-defined nodularity, statistically infectious/inflammatory 5. 7 mm solid right lower lobe pulmonary nodule. Follow-up per Fleischner criteria is recommended. CT abdomen 1. 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 2. No bowel wall thickening or obstruction. 3. Small right lower quadrant peristomal hernia Head CT: No acute intracranial findings Labs: Influenza A positive Plan: Patient with cough for several days and found to be flu positive -Continue Tamiflu -History of COPD, former smoker, flu may excerbated COPD: continue IV solumedrol, continue Doxycycline, inhalers, nebulizers -No definitive imaging evidence for pneumonia, however pulmonary nodule identified on CT chest, history of smoking, will need follow up CT imaging as outpatient to rule out inflammatory process vs malignancy -persistent cough: treat flu, treat COPD, start Tessalon Perles and guaifenesin , follow up CXR on 10/14/17 AM -Hypertension, stable. -DM2, insulin requiring, well controlled as of recent HgA1c. -hx meningioma/migraine as per records, was scheduled for outpatient workup to rule out temporal arteritis, on steroids now primarily for respiratory symptoms , continue steroids, acetaminophen prn for headache or fever -DVT prophylaxis, Lovenox subcu. Daughter [phone] Full Code
[2017-10-13] MEDS: CHOLESTYRAMINE LIGHT 4 GM PKT PO SCH ×2 (10:13→22:00)
--- NOTE | 2017-10-13 10:36 | HISTORY & PHYSICAL EXAMINATION ---
DATE OF ADMISSION: 10/13/2017 PRIMARY CARE DOCTOR: Dr. Wagner. CHIEF COMPLAINT: Hemoptysis, cough, shortness of breath. HISTORY OF PRESENT ILLNESS: History obtained from patient, family, and records . Medical history significant for COPD, past tobacco abuse, reflux, migraine history, history of meningioma, hypertension, DM2 insulin requiring, and IBD status post surgery. Last few days, the patient had cough productive of yellow sputum, later blood tinged, increasing shortness of breath, pleuritic chest pain in the right lower rib, no unusual leg swelling. Patient also complaining of achy abdominal discomfort, headache from coughing. Sick . Patient was seen at PCP's office a few days ago. Impression was viral URI. Mucinex, rest, fluids recommended. May need prednisone pack as per note. Patient brought to the Emergency Room. She received Levaquin and DuoNebs for possible pneumonia. MEDICAL HISTORY: As above. SURGERIES: She has had bowel surgery, hysterectomy, appendectomy, knee surgery. HOME MEDICATIONS: Include oxycodone, Protonix, Inderal, rosuvastatin, venlafaxine, Lantus to be transitioned to Levemir when she runs out of the former medication. levocetirizine, lisinopril, Dulera, Singulair, vitamin D, cholestyramine, Klonopin, Tricor, fish oil, gabapentin, Ventolin, Zyloprim, alpha-lipoic acid, aspirin, beta complex. ALLERGIES: TO FORMALIN, ISOTHIAZOLINONE CHLORIDE, QUATERNIUM. FAMILY HISTORY: Rheumatoid arthritis, hypertension, diabetes, heart disease. PERSONAL AND SOCIAL HISTORY: Past tobacco use. No chronic intake of alcoholic beverages. 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 REVIEW OF SYSTEMS: As per HPI, all 10 systems, all other ROS negative. PHYSICAL EXAMINATION: VITAL SIGNS: Blood pressure was noted to be 159/76, pulse rate 95, RR 22, temperature 36.7, sats 95% on room air. GENERAL: Noted to be in respiratory distress, uncomfortable, obese. SKIN: Normal color. Warm. HEENT: Haskins palpebral conjunctivae . No ptosis. Dry mucosa. NECK: Short neck, supple. CHEST: Expiratory wheezes, no chest wall tenderness. HEART: Regular rate and rhythm. Palpable LE pulses. ABDOMEN: Some distention. Ostomy noted on the right side. No overt tenderness. EXTREMITIES: Minimal LE edema. No tenderness. No gross deformities. NEUROLOGIC: Coherent. No gross focality. LABORATORY DATA: Hemoglobin was noted to be 15.9, hematocrit 44.7, white blood cells 11.3, platelets 221. Sodium noted to be 131, potassium 4.1, chloride 93, CO2 of 27, BUN 16, creatinine 1.19, glucose 142. Hemoglobin A1c from 06/[address] head, no acute pathology on initial read. CTA, bronchitis, no PE on initial read. CT abdomen and pelvis initial read, postop changes, no bowel wall thickening, right lower quadrant ileostomy, small right lower quadrant parastomal hernia. EKG as per my interpretation rate 90, NSR, no ischemia, low voltage Flu swab was positive for pneumonia. ASSESSMENT: 1. Chronic obstructive pulmonary disease exacerbation/complicated bronchitis/ influenza pneumonia No sepsis. 2. Hypertension, stable. 3. DM2, insulin requiring, well controlled as of recent outpatient HgA1c. 4. Inflammatory bowel disease, status post surgery. 5. hx meningioma/migraine as per records 6. Past tobacco abuse. PLAN: GMF Doxycycline, nebs, prednisone course Tamiflu course. Basal insulin, ISS BG goal 140-180. DVT prophylaxis, Lovenox subcu. Full code. MTDD
[2017-10-13] MEDS: BENZONATATE 100MG CAP PO SCH ×2 (14:24→22:03)
[2017-10-13 14:25] VITALS: PULSE 71; O2SAT 97
[2017-10-13] MEDS: GUAIFENESIN SUGAR FREE 100 MG/5 ML UDC PO PRN (15:05)
[2017-10-13 16:08] VITALS: BP 135/60; PULSE 93; TEMP 36.3; O2SAT 93
[2017-10-13 20:08] VITALS: PULSE 76; O2SAT 96
[2017-10-13] MEDS ORDERED: FENOFIBRATE 145 MG TAB PO SCH (21:00)
[2017-10-13] MEDS ORDERED: MONTELUKAST SOD 10 MG TAB PO SCH (21:00)
[2017-10-13] MEDS: DOXYCYCLINE HYCLATE 100 MG CAP PO SCH (21:52)
[2017-10-13] MEDS: PROPRANOLOL HCL 10 MG TAB PO SCH (21:53)
[2017-10-13 23:45] VITALS: BP 148/78; PULSE 68; TEMP 36.4; O2SAT 94
[2017-10-14] VITALS (7 sets, daily range): BP systolic 138–176; BP diastolic 75–77; PULSE 74–90; TEMP 35.2–37; O2SAT 94–96
[2017-10-14] MEDS: IPRATROPIUM BROMIDE NEB SOLN 0.02% 2.5 ML VIAL INH SCH ×3 (02:05→14:03)
[2017-10-14] MEDS: LEVALBUTEROL 1.25MG/0.5ML NEB INH SCH ×3 (02:05→14:04)
[2017-10-14] MEDS: VITAMIN B COMPLEX TAB PO SCH (07:31)
[2017-10-14] MEDS: PANTOprazole SOD 40 MG TAB PO SCH (07:31)
[2017-10-14] MEDS: VENLAFAXINE HCL XR 150 MG CAPXR PO SCH (07:32)
[2017-10-14] MEDS: LISINOPRIL 10 MG TAB PO SCH (07:32)
[2017-10-14] MEDS: ROSUVASTATIN CALCIUM 20 MG TAB PO SCH (07:32)
[2017-10-14] MEDS: DOXYCYCLINE HYCLATE 100 MG CAP PO SCH (07:32)
[2017-10-14] MEDS: ALLOPURINOL 100 MG TAB PO SCH (07:32)
[2017-10-14] MEDS: ASPIRIN 81 MG ECTAB PO SCH (07:32)
[2017-10-14] MEDS: OSELTAMIVIR PHOSPHATE 75 MG CAP PO SCH (07:32)
[2017-10-14] MEDS: GABAPENTIN 300 MG CAP PO SCH ×2 (07:32→14:00)
[2017-10-14] MEDS: PROPRANOLOL HCL 10 MG TAB PO SCH (07:32)
[2017-10-14] MEDS: ENOXAPARIN 40 MG/0.4 ML SYR SQ SCH (07:33)
[2017-10-14] MEDS: BENZONATATE 100MG CAP PO SCH ×2 (08:16→14:00)
--- NOTE | 2017-10-14 08:16 | DIAGNOSTIC IMAGING REPORT ---
CHEST 2 VIEWS ROUTINE CLINICAL HISTORY: Cough COMPARISON STUDY: 10/12/2017 FINDINGS: The heart is normal in size. There is no focal pulmonary consolidation. A linear opacity at the right lung bases likely atelectatic. There is no failure. There are no pleural effusions.[ IMPRESSION: No evidence of focal pulmonary consolidation Electronically signed by: Sven Cantu M.D. 10/14/2017 8:15 AM Dictated Date/Time: 10/14/2017 8:12 AM
[2017-10-14] MEDS: INSULIN ASPART 100 UNITS/ML 3 ML PEN SC SCH ×2 (08:17→12:27)
[2017-10-14] MEDS: INSULIN GLARGINE SOLOSTAR 100 UNITS/ML 3 ML PEN SC SCH (08:19)
[2017-10-14 09:04] LABS: BASO % 0.3 %; BASO ABS # 0.04 K/uL (0-0.2); EOS % 0.2 %; EOS ABS # 0.02 K/uL (0-0.5); HEMATOCRIT 44.4 % (37-47); HEMOGLOBIN 15.6 g/dL (12.0-16.0); IG# 0.14 K/uL (0.00-0.02); LYMPH % 17.3 %; LYMPH ABS # 2.18 K/uL (1.2-3.4); MEAN CELL VOLUME 97.8 fL (80-100); MEAN CORPUSCULAR HEMOGLOBIN 34.4 pg (25-34); MEAN CORPUSCULAR HGB CONC 35.1 g/dl (32-36); MEAN PLATELET VOLUME 10.6 fL (7.4-10.4); MONO % 10.4 %; MONO ABS # 1.31 K/uL (0.11-0.59); NEUT % 70.7 %; NEUT ABS # 8.94 K/uL (1.4-6.5); PLATELET COUNT 251 K/uL (130-400); RED CELL DISTRIBUTION WIDTH CV 13.3 % (11.5-14.5); RED CELL DISTRIBUTION WIDTH SD 47.6 fL (36.4-46.3); WHITE BLOOD COUNT 12.63 K/uL (4.8-10.8)
[2017-10-14 09:45] LABS: ALBUMIN 2.8 gm/dl (3.4-5.0); CALCIUM 10.1 mg/dl (8.5-10.1); CREATININE 1.32 mg/dl (0.60-1.20)
[2017-10-14 09:48] LABS: TOTAL PROTEIN 8.4 gm/dl (6.4-8.2)
[2017-10-14] MEDS: CHOLESTYRAMINE LIGHT 4 GM PKT PO SCH (10:22)
[2017-10-14 11:03] LABS: POTASSIUM 3.9 mmol/L (3.5-5.1)
[2017-10-14] MEDS: GUAIFENESIN SUGAR FREE 100 MG/5 ML UDC PO PRN ×2 (11:29)
[2017-10-14] MEDS ORDERED: RBTUDL5 PO (12:28)
[2017-10-14] MEDS ORDERED: BENZ100C7 PO (12:28)
[2017-10-14] MEDS ORDERED: PRD20 PO (12:30)
[2017-10-14] MEDS ORDERED: DXY100 PO (12:30)
[2017-10-14] MEDS ORDERED: TMF75 PO (12:30)
--- NOTE | 2017-10-14 13:00 | Progress Note ---
Internal Med Progress Note Date of Service: Oct 14, 2017. Provider Documentation: SUBJECTIVE: Patient reports that coughing still present but much better than yesterday. Patient reports she is ready to go home OBJECTIVE: Physical Exam General: no acute distress HEENT: breathing on room air Lungs: good air entry, no wheezing Heart: RRR Extremities: no edema ASSESSMENT & PLAN: Imaging CTA 1. Study limited secondary to respiratory motion artifact 2. No evidence of acute pulmonary embolism 3. Tracheomalacia 4. Areas of bronchial wall thickening and ill-defined nodularity, statistically infectious/inflammatory 5. 7 mm solid right lower lobe pulmonary nodule. Follow-up per Fleischner criteria is recommended. CT abdomen 1. 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 2. No bowel wall thickening or obstruction. 3. Small right lower quadrant peristomal hernia Head CT: No acute intracranial findings Labs: Influenza A positive Plan: Patient with cough for several days and found to be flu positive -Continue Tamiflu on discharge -History of COPD, former smoker, flu may exacerbated COPD, continue home inhalers, continue on discharge prednisone and doxycycline -persistent cough from flu and COPD, continue on discharge start Tessalon Perles and guaifenesin -No definitive imaging evidence for pneumonia, however pulmonary nodule identified on CT chest, history of smoking, will need follow up CT imaging as outpatient to rule out inflammatory process vs malignancy -Hypertension, stable, continue home medications -DM2, insulin requiring, continue home medications -hx meningioma/migraine as per records, was scheduled for outpatient workup to rule out temporal arteritis, on steroids now primarily for respiratory symptoms , continue steroids, acetaminophen prn for headache or fever Patient to be discharged with follow up for primary care clinic at [address] Wagner on 10/19/17 at 12:45 PM Appointments can be re-scheduled with [phone] Vital Signs: Date Time Temp Pulse Resp B/P (MAP) Pulse Ox O2 Delivery O2 Flow Rate FiO2 10/14/17 08:30 96 Room Air 10/14/17 08:25 37.0 10/14/17 08:08 35.2 90 14 138/75 (96) 96 Room Air 10/14/17 08:00 Room Air 10/14/17 07:29 76 176/77 (110) 10/14/17 07:10 77 18 94 Room Air 10/14/17 02:05 74 18 94 Room Air 10/14/17 00:00 Room Air 10/13/17 23:45 36.4 68 20 148/78 (101) 94 Room Air 10/13/17 20:08 76 18 96 Room Air 10/13/17 16:08 36.3 93 18 135/60 (85) 93 Room Air 10/13/17 16:00 Room Air 10/13/17 14:25 71 18 97 Room Air Lab Results: Results Past 24 Hours Test 10/13/17 16:43 10/13/17 18:34 10/13/17 19:49 10/14/17 07:43 Range/Units Bedside Glucose 250 266 170 70-90 mg/dl Urine Color YELLOW Urine Appearance CLOUDY CLEAR Urine pH 5.0 4.5-7.5 Urine Specific Calvin 1.023 1.000-1.030 Urine Protein TRACE NEG Urine Glucose (UA) 2+ NEG Urine Ketones NEG NEG Urine Occult Blood NEG NEG Urine Nitrite NEG NEG Urine Bilirubin NEG NEG Urine Urobilinogen NEG NEG Urine Leukocyte Esterase NEG NEG Urine WBC (Auto) 1-5 0-5 /hpf Urine RBC (Auto) 0-4 0-4 /hpf Urine Hyaline Casts (Auto) 5-10 0-5 /lpf Urine Epithelial Cells (Auto) 20-30 0-5 /lpf Urine Bacteria (Auto) NEG NEG Test 10/14/17 08:38 10/14/17 10:11 10/14/17 11:49 Range/Units White Blood Count 12.63 4.8-10.8 K/uL Red Blood Count 4.54 4.2-5.4 M/uL Hemoglobin 15.6 12.0-16.0 g/dL Hematocrit 44.4 37-47 % Mean Corpuscular Volume 97.8 80-100 fL Mean Corpuscular Hemoglobin 34.4 25-34 pg Mean Corpuscular Hemoglobin Concent 35.1 32-36 g/dl Platelet Count 251 130-400 K/uL Mean Platelet Volume 10.6 7.4-10.4 fL Neutrophils (%) (Auto) 70.7 % Lymphocytes (%) (Auto) 17.3 % Monocytes (%) (Auto) 10.4 % Eosinophils (%) (Auto) 0.2 % Basophils (%) (Auto) 0.3 % Neutrophils # (Auto) 8.94 1.4-6.5 K/uL Lymphocytes # (Auto) 2.18 1.2-3.4 K/uL Monocytes # (Auto) 1.31 0.11-0.59 K/uL Eosinophils # (Auto) 0.02 0-0.5 K/uL Basophils # (Auto) 0.04 0-0.2 K/uL RDW Standard Deviation 47.6 36.4-46.3 fL RDW Coefficient of Variation 13.3 11.5-14.5 % Immature Granulocyte % (Auto) 1.1 % Immature Granulocyte # (Auto) 0.14 0.00-0.02 K/uL Sodium Level 136 136-145 mmol/L Potassium Level 3.9 3.5-5.1 mmol/L Chloride Level 101 98-107 mmol/L Carbon Dioxide Level 26 21-32 mmol/L Anion Gap 9.0 3-11 mmol/L Blood Urea Nitrogen 31 7-18 mg/dl Creatinine 1.32 0.60-1.20 mg/dl Est Creatinine Clear Calc Drug Dose 36.4 ml/min Estimated GFR () 46.3 Estimated GFR (Non- 39.9 BUN/Creatinine Ratio 23.3 10-20 Random Glucose 199 70-99 mg/dl Calcium Level 10.1 8.5-10.1 mg/dl Total Bilirubin 0.5 0.2-1 mg/dl Aspartate Amino Transf (AST/SGOT) 24 15-37 U/L Alanine Aminotransferase (ALT/SGPT) 25 12-78 U/L Alkaline Phosphatase 74 45-117 U/L Total Protein 8.4 6.4-8.2 gm/dl Albumin 2.8 3.4-5.0 gm/dl Globulin 5.6 2.5-4.0 gm/dl Albumin/Globulin Ratio 0.5 0.9-2 Bedside Glucose 259 70-90 mg/dl
--- NOTE | 2017-10-14 13:19 | Discharge Instructions ---
Discharge Instructions Date of Service Oct 14, 2017. Admission Reason for Admission: Copd Exacerbation Discharge Discharge Diagnosis / Problem: Influenza A, COPD, coughing, pulmonary nodule Discharge Goals Goal(s): Improve function Activity Recommendations Activity Limitations: per Instructions/Follow-up section . Instructions / Follow-Up Instructions / Follow-Up Imaging CTA 1. Study limited secondary to respiratory motion artifact 2. No evidence of acute pulmonary embolism 3. Tracheomalacia 4. Areas of bronchial wall thickening and ill-defined nodularity, statistically infectious/inflammatory 5. 7 mm solid right lower lobe pulmonary nodule. Follow-up per Fleischner criteria is recommended. CT abdomen 1. 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 2. No bowel wall thickening or obstruction. 3. Small right lower quadrant peristomal hernia Head CT: No acute intracranial findings Labs: Influenza A positive Plan: Patient with cough for several days and found to be flu positive -Continue Tamiflu on discharge -History of COPD, former smoker, flu may exacerbated COPD, continue home inhalers, continue on discharge prednisone and doxycycline -persistent cough from flu and COPD, continue on discharge start Tessalon Perles and guaifenesin -No definitive imaging evidence for pneumonia, however pulmonary nodule identified on CT chest, history of smoking, will need follow up CT imaging as outpatient to rule out inflammatory process vs malignancy -Hypertension, stable, continue home medications -DM2, insulin requiring, continue home medications -hx meningioma/migraine as per records, was scheduled for outpatient workup to rule out temporal arteritis, on steroids now primarily for respiratory symptoms , continue steroids, acetaminophen prn for headache or fever Patient to be discharged with follow up for primary care clinic at [address] Wagner on 10/19/17 at 12:45 PM Appointments can be re-scheduled with [phone] Current Hospital Diet Patient's current hospital diet: Clear Liquid Diet Discharge Diet Recommended Diet: Regular Diet Pending Studies Studies pending at discharge: no Laboratory Results 10/14/17 08:38 Red Blood Count 4.54, Mean Corpuscular Volume 97.8, Mean Corpuscular Hemoglobin 34.4, Mean Corpuscular Hemoglobin Concent 35.1, Mean Platelet Volume 10.6, Neutrophils (%) (Auto) 70.7, Lymphocytes (%) (Auto) 17.3, Monocytes (%) (Auto) 10.4, Eosinophils (%) (Auto) 0.2, Basophils (%) (Auto) 0.3, Neutrophils # (Auto ) 8.94, Lymphocytes # (Auto) 2.18, Monocytes # (Auto) 1.31, Eosinophils # (Auto ) 0.02, Basophils # (Auto) 0.04 10/14/17 08:38 10/14/17 10:11 Test 10/12/17 21:55 10/12/17 22:00 10/12/17 22:15 10/12/17 22:17 Influenza Type A (RT-PCR) POS for Influ A (NEG) Influenza Type A Antigen Neg for Influ A (NEG) Influenza Type B Antigen Neg for Influ B (NEG) Influenza Type B (RT-PCR) Neg for Influ B (NEG) Erythrocyte Sedimentation Rate > 90 mm/hr (0-21) Prothrombin Time 11.5 SECONDS (9.0-12.0) Prothromb Time International Ratio 1.1 (0.9-1.1) Activated Partial Thromboplast Time 35.5 SECONDS (21.0-31.0) Partial Thromboplastin Ratio 1.4 Phosphorus Level 2.2 mg/dl (2.5-4.9) Magnesium Level 1.9 mg/dl (1.8-2.4) Total Creatine Kinase 161 U/L (26-192) Creatine Kinase MB 0.6 ng/ml (0.5-3.6) Creatine Kinase MB Ratio 0.4 (0-3.0) Troponin I < 0.015 ng/ml (0-0.045) C-Reactive Protein 33.00 mg/dl (0-0.29) Pro-B-Type Natriuretic Peptide 281 pg/ml (0-900) Lipase 138 U/L (73-393) Bedside D-Dimer > 450 ng/mlFEU (0-450) Bedside Lactic Acid Venous 1.67 mmol/L (0.90-1.70) Test 10/12/17 22:21 10/13/17 18:34 10/14/17 08:38 10/14/17 10:11 Venous Blood pH 7.42 (7.36-7.41) Venous Blood Partial Pressure CO2 42 mmHg (38.0-50.0) Venous Blood Partial Pressure O2 65 mmHg Venous Blood HCO3 27 mmol/L Venous Blood Oxygen Saturation 92.6 % Venous Blood Base Excess 1.9 mEq/L Urine Color YELLOW Urine Appearance CLOUDY (CLEAR) Urine pH 5.0 (4.5-7.5) Urine Specific [place] 1.023 (1.000-1.030) Urine Protein TRACE (NEG) Urine Glucose (UA) 2+ (NEG) Urine Ketones NEG (NEG) Urine Occult Blood NEG (NEG) Urine Nitrite NEG (NEG) Urine Bilirubin NEG (NEG) Urine Urobilinogen NEG (NEG) Urine Leukocyte Esterase NEG (NEG) Urine WBC (Auto) 1-5 /hpf (0-5) Urine RBC (Auto) 0-4 /hpf (0-4) Urine Hyaline Casts (Auto) 5-10 /lpf (0-5) Urine Epithelial Cells (Auto) 20-30 /lpf (0-5) Urine Bacteria (Auto) NEG (NEG) White Blood Count 12.63 K/uL (4.8-10.8) Red Blood Count 4.54 M/uL (4.2-5.4) Hemoglobin 15.6 g/dL (12.0-16.0) Hematocrit 44.4 % (37-47) Mean Corpuscular Volume 97.8 fL (80-100) Mean Corpuscular Hemoglobin 34.4 pg (25-34) Mean Corpuscular Hemoglobin Concent 35.1 g/dl (32-36) Platelet Count 251 K/uL (130-400) Mean Platelet Volume 10.6 fL (7.4-10.4) Neutrophils (%) (Auto) 70.7 % Lymphocytes (%) (Auto) 17.3 % Monocytes (%) (Auto) 10.4 % Eosinophils (%) (Auto) 0.2 % Basophils (%) (Auto) 0.3 % Neutrophils # (Auto) 8.94 K/uL (1.4-6.5) Lymphocytes # (Auto) 2.18 K/uL (1.2-3.4) Monocytes # (Auto) 1.31 K/uL (0.11-0.59) Eosinophils # (Auto) 0.02 K/uL (0-0.5) Basophils # (Auto) 0.04 K/uL (0-0.2) RDW Standard Deviation 47.6 fL (36.4-46.3) RDW Coefficient of Variation 13.3 % (11.5-14.5) Immature Granulocyte % (Auto) 1.1 % Immature Granulocyte # (Auto) 0.14 K/uL (0.00-0.02) Anion Gap 9.0 mmol/L (3-11) Est Creatinine Clear Calc Drug Dose 36.4 ml/min Estimated GFR () 46.3 Estimated GFR (Non- 39.9 BUN/Creatinine Ratio 23.3 (10-20) Calcium Level 10.1 mg/dl (8.5-10.1) Total Bilirubin 0.5 mg/dl (0.2-1) Alanine Aminotransferase (ALT/SGPT) 25 U/L (12-78) Alkaline Phosphatase 74 U/L (45-117) Total Protein 8.4 gm/dl (6.4-8.2) Albumin 2.8 gm/dl (3.4-5.0) Globulin 5.6 gm/dl (2.5-4.0) Albumin/Globulin Ratio 0.5 (0.9-2) Aspartate Amino Transf (AST/SGOT) 24 U/L (15-37) Test 10/14/17 11:49 Bedside Glucose 259 mg/dl (70-90) Date/Time Source Procedure Growth Status 10/12/17 22:21 Blood Blood Culture - Preliminary NO GROWTH TO DATE. Resulted 10/13/17 12:15 Sputum Expectorated Sputum Gram Stain - Final Resulted 10/13/17 12:15 Sputum Expectorated Sputum Sputum Culture Pending Resulted Medical Emergencies . Who to Call and When: Medical Emergencies: If at any time you feel your situation is an emergency, please call 911 immediately. . Non-Emergent Contact Non-Emergency issues call your: Primary Care Provider . . "Provider Documentation" section prepared by Chris Prakash. . VTE Core Measure Inpt VTE Proph given/why not?: Enoxaparin (Lovenox)SQ
--- NOTE | 2017-10-14 13:20 | Discharge Summary ---
Discharge Summary Date of Service Oct 14, 2017. Discharge Summary Admission Date: Oct 13, 2017 at 02:45 Discharge Date: Oct 14, 2017 Discharge Disposition: Home Principal Diagnosis: Influenza A, COPD, coughing, pulmonary nodule Medication Reconciliation New Medications: Benzonatate (Benzonatate) 100 Mg Cap 100 MG PO TID for 5 Days, #15 CAP Doxycycline Hyclate (Doxycycline Hyclate) 100 Mg Cap 100 MG PO BID for 5 Days, #10 CAP Guaifenesin (Robitussin) 100 Mg/5 Ml Shira 100 MG PO Q6H PRN for Cough for 5 Days, #1 BTL Oseltamivir Phosphate (Tamiflu) 75 Mg Cap 75 MG PO BID for 3 Days, #6 CAP Prednisone (Prednisone) 20 Mg Tab 0 PO DAILY for 6 Days, #7 TAB take 40 mg x 2 days, 20 mg x 2 days, 10 mg x 2 days Continued Medications: Albuterol Hfa (Ventolin Hfa) 200 Puffs/29116 Mcg Aers 2-4 PUFFS INH Q6H PRN for Shortness of Breath Allopurinol (Zyloprim) 100 Mg Tab 200 MG PO DAILY Alpha-Lipoic Acid (Thioctic Ac (Alpha Lipoic Acid) 50 Mg Cap 1 CAP PO TID Aspirin Enteric Coated (Ecotrin Or Generic) 81 Mg Tab 2 TABS PO QAM, TAB B-Complex Vitamins (B Complex) 1 Cap Cap 1 CAP PO QAM Cholecalciferol (Vitamin D) 2,000 Unit Cap 2 CAP PO QAM Cholestyramine (Cholestyramine) 4 Gm Pow 4 GM PO BID Clonazepam (Klonopin) 0.5 Mg Tab 0.5 MG PO UD PRN for Anxiety and/or Sedation Fenofibrate (Tricor ) 145 Mg Tab 145 MG PO QPM, 0 Refills Fish Oil ([place]-3) 1 Ea Cap 1 CAP PO QAM, CAP Gabapentin (Gabapentin) 300 Mg Cap 300 MG PO TID Insulin Aspart (Novolog) 100 Units/Ml Inj SQ UD Insulin Glargine (Lantus) 100 Unit/Ml Inj 30 UNITS SC UD Levocetirizine Dihydrochloride (Levocetirizine Dihydrochl) 5 Mg Tab 5 MG PO HS Lisinopril (Lisinopril) 10 Mg Tab 10 MG PO DAILY Mometasone Furoate-Formoterol (Dulera 200/5 Mcg) 1 Aer Aer 2 PUFFS INH BID, GM Montelukast Sodium (Singulair) 10 Mg Tab 10 MG PO QPM, TAB Oxycodone Ir (Roxicodone Ir) 5 Mg Tab 1-2 TAB PO Q4H PRN for Severe Pain, #12 TAB Pantoprazole Sodium (Protonix) 40 Mg Tab 40 MG PO QAM, #30 TAB Propranolol (Inderal) 10 Mg Tab 10 MG PO BID, 0 Refills Rosuvastatin Calcium (Rosuvastatin Calcium) 40 Mg Tab 40 MG PO DAILY Venlafaxine Hcl (Venlafaxine Hcl Er) 150 Mg Tab 150 MG PO DAILY, 2 Refills Discontinued Medications: Amoxicillin (Amoxil) 500 Mg Cap 4 CAP PO 1 HOUR PRIOR TO PROC PRN for DENTAL PROCEDURES Prednisone (Prednisone) 20 Mg Tab 3 TAB PO DAILY, #12 TAB FOR 4 DAYS Admission Information HPI (per Admitting provider): CHIEF COMPLAINT: Hemoptysis, cough, shortness of breath. HISTORY OF PRESENT ILLNESS: History obtained from patient, family, and records . Medical history significant for COPD, past tobacco abuse, reflux, migraine history, history of meningioma, hypertension, DM2 insulin requiring, and IBD status post surgery. Last few days, the patient had cough productive of yellow sputum, later blood tinged, increasing shortness of breath, pleuritic chest pain in the right lower rib, no unusual leg swelling. Patient also complaining of achy abdominal discomfort, headache from coughing. Sick . Patient was seen at PCP's office a few days ago. Impression was viral URI. Mucinex, rest, fluids recommended. May need prednisone pack as per note. Patient brought to the Emergency Room. She received Levaquin and DuoNebs for possible pneumonia. Physical Exam (per Admitting): PHYSICAL EXAMINATION: VITAL SIGNS: Blood pressure was noted to be 159/76, pulse rate 95, RR 22, temperature 36.7, sats 95% on room air. GENERAL: Noted to be in respiratory distress, uncomfortable, obese. SKIN: Normal color. Warm. HEENT: [place] palpebral conjunctivae . No ptosis. Dry mucosa. NECK: Short neck, supple. CHEST: Expiratory wheezes, no chest wall tenderness. HEART: Regular rate and rhythm. Palpable LE pulses. ABDOMEN: Some distention. Ostomy noted on the right side. No overt tenderness. EXTREMITIES: Minimal LE edema. No tenderness. No gross deformities. NEUROLOGIC: Coherent. No gross focality. Hospital Course Imaging CTA 1. Study limited secondary to respiratory motion artifact 2. No evidence of acute pulmonary embolism 3. Tracheomalacia 4. Areas of bronchial wall thickening and ill-defined nodularity, statistically infectious/inflammatory 5. 7 mm solid right lower lobe pulmonary nodule. Follow-up per Fleischner criteria is recommended. CT abdomen 1. 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 2. No bowel wall thickening or obstruction. 3. Small right lower quadrant peristomal hernia Head CT: No acute intracranial findings Labs: Influenza A positive Plan: Patient with cough for several days and found to be flu positive -Continue Tamiflu on discharge -History of COPD, former smoker, flu may exacerbated COPD, continue home inhalers, continue on discharge prednisone and doxycycline -persistent cough from flu and COPD, continue on discharge start Tessalon Perles and guaifenesin -No definitive imaging evidence for pneumonia, however pulmonary nodule identified on CT chest, history of smoking, will need follow up CT imaging as outpatient to rule out inflammatory process vs malignancy -Hypertension, stable, continue home medications -DM2, insulin requiring, continue home medications -hx meningioma/migraine as per records, was scheduled for outpatient workup to rule out temporal arteritis, on steroids now primarily for respiratory symptoms , continue steroids, acetaminophen prn for headache or fever Patient to be discharged with follow up for primary care clinic at [address] Wagner on 10/19/17 at 12:45 PM Appointments can be re-scheduled with [phone] Total time spent on discharge = 60 minutes This includes examination of the patient, discharge planning, medication reconciliation, and communication with other providers. Discharge Instructions see above
== END 2017-10-14 14:10 | disposition home or self-care (01) | DRG 194 ==
LOC: C.EDB 19:43 → C.MS4W 10-13 02:45 → ENRESERV 10-13 02:56 → EDBEDREQ 10-13 02:57
PROVIDERS: ADMIT Internal Medicine; ATTEND Hospitalist
DX: J10.1 Influenza due to other identified influenza virus with other respiratory manifestations (principal); J44.1 Chronic obstructive pulmonary disease with (acute) exacerbation; N18.4 Chronic kidney disease, stage 4 (severe); R91.1 Solitary pulmonary nodule; E11.22 Type 2 diabetes mellitus with diabetic chronic kidney disease; I12.9 Hypertensive chronic kidney disease with stage 1 through stage 4 chronic kidney disease, or unspecified chronic kidney disease; K21.9 Gastro-esophageal reflux disease without esophagitis; G43.909 Migraine, unspecified, not intractable, without status migrainosus; Z51.81 Encounter for therapeutic drug level monitoring; Z79.899 Other long term (current) drug therapy; Z79.4 Long term (current) use of insulin; Z79.82 Long term (current) use of aspirin; Z79.52 Long term (current) use of systemic steroids; Z87.19 Personal history of other diseases of the digestive system; Z98.890 Other specified postprocedural states; Z87.891 Personal history of nicotine dependence; Z88.8 Allergy status to other drugs, medicaments and biological substances; Z82.49 Family history of ischemic heart disease and other diseases of the circulatory system; Z83.3 Family history of diabetes mellitus; Z82.69 Family history of other diseases of the musculoskeletal system and connective tissue

== ENCOUNTER → 2017-11-30 | Day surgery (SDC) | payer OTHER ==
[2017-11-26 13:24] VITALS: Ht 157.5 cm; Wt 75.0 kg
[~2017-11-30] VITALS: Ht 157.5 cm; Wt 75.0 kg
[~2017-11-30] MED LIST changes: +ALPH300C PO; -ALPH50CA2 PO; -AMOX500C3 PO; +ATROPINE SULFATE 0.1 MG/ML 5ML SYR IV PRN; -B-CO1CAP3 PO; +BACITRACIN OINT 15 GM TUBE ONE; +BUPIVACAINE 0.5 % 5 MG/1 ML MPF 30ML VIAL ONE; +CEFAZOLIN 2000MG IV PUSH 15 ML IV SCH; +CEFAZOLIN SOD 2000MG/15 ML IV PUSH IV ONE; -CHOL200010 PO; -CLON0.5T3 PO; +CLON1TAB21 PO; +DICY10CA12 PO; +DIPH-416 PO; +EFF75 PO; +EpHEDrine SULFATE INJ 50 MG/ML AMP IV PRN; +FENTANYL CITRATE INJ 50 MCG/1 ML 2 ML VIAL ONE; +FLAX1CAP11 PO; +FLUT50SP45; -INSDGI SC; +INSU3INJ3 PO; +LACTATED RINGER'S 1000ML 1,000 ML IV SCH; +LIDOCAINE HCL 1% 20 ML VIAL ONE; +LIDOCAINE HCL 2% 2 ML VIAL (20MG/ML) ONE; +MIDAZOLAM HCL 1 MG/ML 2ML VIAL ONE; +MoRPHine SULFATE 2 MG/ML CARP IV PRN; +ONDANSETRON INJ 2 MG/ML 2 ML VIAL ONE; +OXYC-57 PO; -OXYC1TAB3 PO; +OXYCODONE/ACETAMINOPHEN 5-325 TAB PO PRN; -PRED20TA PO; +PROPOFOL IV EMULSION 10 MG/ML 20 ML VIAL IV ONE; +ROPI0.5T15 PO; +SODIUM CHLORIDE 0.9% 1000ML 1,000 ML IV SCH
--- NOTE | 2017-11-30 07:59 | History & Physical Bridge Note ---
H&P Re-Evaluation Bridge Note: I have examined the patient, reviewed the History & Physical and in the interval since the performance of the History & Physical I have noted the following changes of clinical significance: No changes noted
--- NOTE | 2017-11-30 08:54 | [facility] Post Operative Brief Note ---
Immediate Operative Summary Operative Date Nov 30, 2017. Pre-Operative Diagnosis Left Temporal Pain Post-Operative Diagnosis Left Temporal Pain Procedure(s) Performed Left Temporal Artery Biopsy Surgeon Dr. Nagy Farmworker Surgeon(s) none Estimated Blood Loss 5 ML Findings Consistent with Post-Op Diagnosis Fluids (cc crystalloids) 400ml Specimens a. Left Temporal Artery Biopsy Drains None Anesthesia Type MAC Complication(s) none Disposition Accompanied Pt To Recover: yes Disposition: Recovery Room / PACU
[2017-11-30 09:03] VITALS: BP 113/61; PULSE 74; TEMP 36.5; O2SAT 94
--- NOTE | 2017-11-30 09:05 | Discharge Instructions ---
Discharge Instructions Date of Service Nov 30, 2017. Visit Reason for Visit: Temporal Pain Discharge Discharge Diagnosis / Problem: S/P biopsy left temporal artery Discharge Goals Goal(s): Decrease discomfort, Improve function Activity Recommendations Activity Limitations: per Instructions/Follow-up section Lifting Limitations: none Exercise/Sports Limitations: rest today May Resume Sexual Activity: when tolerated Shower/Bathe: may shower/bathe in 3 days Driving or Machine Use: resume 3 days after discharge Anesthesia . Post Anesthesia Instructions: If you have had General Anesthesia or IV Sedation: * Do not drive today. * Resume driving when surgeon permits. * Do not make important decisions or sign legal documents today. * Call surgeon for: 1. Temperature elevations greater than 101 degrees F. 2. Uncontrollable pain. 3. Excessive bleeding. 4. Persistent nausea and vomiting. 5. Medication intolerance (nausea, vomiting or rash). * For nausea and vomiting use only clear liquids such as: tea, soda, bouillon until nausea subsides, then gradually increase diet as tolerated. * If you have any concerns or questions, call your surgeon's office. If physician is unavailable and it is an emergency, call 911 or go to the nearest emergency room. . Instructions / Follow-Up Instructions / Follow-Up keep the dressing on for 4 days, she can take a shower on 12/04/2017, no driving while taking pain medicine. follow up Dr. Nagy 1 week, Diet Recommendations Recommended Home Diet: resume previous diet Procedures Procedures Performed: Left Temporal Artery Biopsy Pending Studies Studies pending at discharge: no Medical Emergencies . Who to Call and When: Medical Emergencies: If at any time you feel your situation is an emergency, please call 911 immediately. . Non-Emergent Contact Non-Emergency issues call your: Surgeon Call Non-Emergent contact if: you have a fever, temperature is above 100.5, your pain is not controlled, your pain is worsening, wound has increased drainage, wound has increased redness . . "Provider Documentation" section prepared by Christine Nagy. . [place] Drug Monitoring Program Search Results: no issues identified
[2017-11-30 09:33] VITALS: BP 154/62; PULSE 81; TEMP 36.4; O2SAT 93
--- NOTE | 2017-11-30 09:56 | OPERATIVE REPORT ---
DATE OF OPERATION: 11/30/2017 PREOPERATIVE DIAGNOSES: Left temporal headache. POSTOPERATIVE DIAGNOSIS: Left temporal headache. PROCEDURE: Biopsy of left temporal artery. SURGEON: Dr. Christine Nagy. ANESTHESIA: Conscious sedation with local. FINDINGS: A normal finding on the anterior appearance. COMPLICATIONS: None. ESTIMATED BLOOD LOSS: About 5 mL. INDICATIONS FOR THE PROCEDURE: This is a 72-year-old female who presented with left temporal headache. The patient will require to do a left temporal artery biopsy. I did talk to the patient about the benefit and risk, alternate procedure. I indicated the risks may include but not limited such as bleeding, infection, vision change. The patient understands. She signed informed consent and I answered all questions. DETAILS OF PROCEDURE: We brought the patient to the OR, put the patient in the supine position. The patient received SCD on bilateral legs to prevent DVT. Also, the patient received 2 g Ancef IV for prophylactic antibiotic. The patient received conscious sedation by the anesthesiology. The left temporal area was appropriately draped in routine sterile fashion. After a timeout, I used the Doppler to locate the temporal artery to make a marking. Then, I injected the local anesthesia by using 1% lidocaine mixed with 0.5% Marcaine on the incision marking. Then, I made about a 1.5 cm incision on the marking site; then opened the skin and subcutaneous layer in an open fashion and then ligated the temporal artery, the pulse is patent. Then, I removed the 1 cm piece of the temporal artery, rechecked, and no active bleeding. Hemostasis obtained using 3-0 Vicryl, closed subcutaneous layer interruptedly, closed skin by using 4-0 Vicryl continuous running. We put the dressing on. The patient tolerated the procedure well. All the instrument, needle and sponge count were correct x2 at the end the case. The patient transferred to recovery room in stable condition. The specimen sent to pathology. After procedure, I did talk to the patient and family member about the OR finding and procedure we did, they understand. I attest to the content of the Intraoperative Record and any orders documented therein. Any exceptions are noted below. LIEN
== END | disposition home or self-care (01) ==
LOC: C.ACU 05:58
PROVIDERS: ATTEND Surgery
DX: R51 Headache (principal); I77.6 Arteritis, unspecified; Z85.820 Personal history of malignant melanoma of skin; I73.9 Peripheral vascular disease, unspecified; F33.1 Major depressive disorder, recurrent, moderate; M10.9 Gout, unspecified; I12.9 Hypertensive chronic kidney disease with stage 1 through stage 4 chronic kidney disease, or unspecified chronic kidney disease; J44.9 Chronic obstructive pulmonary disease, unspecified; I25.10 Atherosclerotic heart disease of native coronary artery without angina pectoris; E78.5 Hyperlipidemia, unspecified; E11.42 Type 2 diabetes mellitus with diabetic polyneuropathy; N18.4 Chronic kidney disease, stage 4 (severe); L40.9 Psoriasis, unspecified; Z98.41 Cataract extraction status, right eye; Z98.42 Cataract extraction status, left eye; Z82.61 Family history of arthritis; Z82.49 Family history of ischemic heart disease and other diseases of the circulatory system; Z83.3 Family history of diabetes mellitus; Z83.511 Family history of glaucoma; Z87.891 Personal history of nicotine dependence; Z79.82 Long term (current) use of aspirin; Z79.4 Long term (current) use of insulin; Z88.8 Allergy status to other drugs, medicaments and biological substances; Z86.73 Personal history of transient ischemic attack (TIA), and cerebral infarction without residual deficits

== ENCOUNTER 2021-11-09 12:45 | Observation (INO) ==
--- NOTE | 2021-11-09 13:34 | Emergency Department Note ---
History of Present Illness General Chief complaint: Illness Stated complaint: FEVER, COUGH, COVID + 12 DAYS AGO Time Seen by Provider: 11/09/21 13:10 Source: patient and family (Daughter and granddaughter who are at the bedside) Mode of arrival: ambulatory Limitations: no limitations History of Present Illness This patient is a 76-year-old female who has multiple medical problems including asthma, comes in after having worsening symptoms after being diagnosed with Covid approximately 12 days ago. Her symptoms started several days prior to that. She had a home test that was positive. She is seen here Thursday with similar type complaints she continues to cough and have generalized weakness. She feels short of breath at times a temperature keeps going up to 101. She has been using nebs at home. She does have underlying asthma. She is on no steroids. She did have the vaccine as well as the booster. She did not receive any monoclonal antibodies. She has had no nausea vomiting or diarrhea. No fall or trauma. Home Medications Medication Instructions Recorded Confirmed Type propranolol 10 mg tablet 10 mg PO BID #0 02/15/07 11/09/21 History fenofibrate nanocrystallized 145 145 mg PO QPM #0 03/26/10 11/09/21 History mg tablet aspirin 81 mg tablet,delayed 81 mg PO DIRECTED #0 tab 02/10/12 11/09/21 History release (Ecotrin Low Strength) montelukast 10 mg tablet 10 mg PO PM #0 tab 02/10/12 11/09/21 History omega 1-bil-jre-fish oil 60 mg-90 1 cap PO BID #0 cap 02/10/12 11/09/21 History mg-500 mg capsule (Fish Oil) pantoprazole 40 mg tablet,delayed 40 mg PO QAM PRN #0 02/10/12 11/09/21 History release levocetirizine 5 mg tablet 5 mg PO PM #0 09/12/15 11/09/21 History mometasone-formoterol HFA 200 2 puff INHALATION BID #0 g 03/04/16 11/09/21 History mcg-5 mcg/actuation aerosol inhaler albuterol sulfate 90 mcg/actuation 2 puff INHALATION Q6H PRN #0 10/04/17 11/09/21 History aerosol inhaler (Ventolin HFA) allopurinol 100 mg tablet 200 mg PO QAM #0 10/04/17 11/09/21 History cholestyramine (with sugar) 4 g PO BID #0 10/04/17 11/09/21 History lisinopril 10 mg tablet 10 mg PO QPM #0 10/04/17 11/09/21 History rosuvastatin 40 mg tablet 40 mg PO QPM #0 10/04/17 11/09/21 History venlafaxine 150 mg 150 mg PO QAM #0 10/04/17 11/09/21 History capsule,extended release 24 hr alpha lipoic acid 300 mg capsule 300 mg PO TID #0 11/26/17 11/09/21 History clonazepam 1 mg tablet 1 mg PO HS PRN #0 tab 11/26/17 11/09/21 History dicyclomine 10 mg capsule 10 mg PO BID #0 11/26/17 11/09/21 History diphenoxylate-atropine 2.5 1 tab PO BID #0 tab 11/26/17 11/09/21 History mg-0.025 mg tablet flaxseed oil 1,000 mg capsule 1,000 mg PO QAM #0 11/26/17 11/09/21 History venlafaxine 75 mg tablet 75 mg PO QPM #0 tab 11/26/17 11/09/21 History gabapentin 100 mg capsule 200 mg PO BID 11/09/21 11/09/21 History insulin degludec 100 unit/mL (3 55 unit SUBCUT QAM 11/09/21 11/09/21 History mL) subcutaneous pen (Tresiba FlexTouch U-100 insulin) levothyroxine 50 mcg tablet 50 mcg PO DAILYBB 11/09/21 11/09/21 History primidone 50 mg tablet 50 mg PO HS 11/09/21 11/09/21 History semaglutide (Ozempic) 0.5 mg SUBCUT We@09 11/09/21 11/09/21 History Allergies Allergy/AdvReac Type Severity Reaction Status Date / Time formaldehyde Allergy Unknown SKIN Verified 11/09/21 15:11 IRRTIATION AND PEELING Isothiazolinones Allergy Unknown SKIN Verified 11/09/21 15:11 IRRITATION AND PEELING quaternium 15 Allergy Unknown SKIN Verified 11/09/21 15:11 IRRITATION AND PEELING Past Med/Surg History Family History (Updated 11/09/21 @ 18:07 by Nicole Augustin DO) Mother Myocardial infarction Sister Hypertension Social History Smoking Status: Never smoker Cigarettes Per Day: 20; Preferred Language: Slovak Feels Safe at Home: Yes Immunizations: Past medical historyCOPD/asthma. She has an ostomy for history of Crohn's and colitis. Diabetes. Chronic kidney disease. No blood clot history Social history lives with grandchild. Does not smoke. Review of Systems A total of 10 systems reviewed and were otherwise negative Physical Exam Vital Signs Vital Signs - 24 hr 11/09/21 12:50 11/09/21 13:40 11/09/21 16:00 Temperature 36.4 C L 36.5 C Temperature Source Temporal Artery Scan Oral Pulse Rate 84 Pulse Rate [Right Finger] 76 Pulse Rhythm [Right Finger] Regular Pulse Strength [Right Finger] Normal Respiratory Rate 18 18 Respiratory Effort / Characteristics Non-Labored Non-Labored Non-Labored Respiratory Depth Normal Normal Respiratory Pattern Regular Regular Blood Pressure 166/72 H Blood Pressure [Right Arm] 181/72 H Blood Pressure Mean 103 Blood Pressure Mean [Right Arm] 108 Pulse Oximetry 93 94 Oxygen Delivery Method Room Air Room Air Room Air Sepsis Recent Fever Within 48 Hours No Sepsis New/Unexplained Change in Mental Status No Sepsis Action Taken by Nursing No Action Required General: Well developed well nourished mildly ill-appearing older female who is coughing but otherwise in no acute distress, breathing comfortably on room air. Normal speech HEENT: Normal cephalic atraumatic. Pupils are equal round and reactive to light. Extraocular movements are intact. Oropharynx is pink with moist mucous membranes. No swelling of the mouth lips or tongue. Neck: Supple with a midline trachea. No meningeal signs or stiffness, no JVD or bruits. No Stridor. Chest: Clear to auscultation bilaterally with the exception of some crackles in the lungs in the bases. No wheezes or rhonchi. No increased work of breathing. Heart: Regular rate and rhythm without murmurs or gallops. Abdomen: Soft nontender, nondistended without rebound guarding or rigidity. Extremities: No cyanosis clubbing or edema. No calf tenderness or assymetry Spine/Back. Non tender to palpation. No CVA tenderness Skin: Good turgor without rashes. Neurologic exam: Cranial nerves two through 12 are intact. Motor and sensation are intact and symmetrical throughout. Course Administered Medications Discontinued Medications Dexamethasone Sodium Phosphate (DexamethasonePf 10 Mg/Ml Vial) 6 mg IV NOW ONE Stop: 11/09/21 14:50 Last Admin: 11/09/21 15:23 Dose: 6 mg Documented by: [id number] Hydrocodone Bit/Homatropine Methylb (Hydrocodone/Homatropine Syrup 5mg/1.5mg 5ml Udp) 5 ml PO NOW STA Stop: 11/09/21 16:53 Last Admin: 11/09/21 17:00 Dose: 5 ml Documented by: [id number] Sodium Chloride (Nss) 500 mls @ 999 mls/hr IV .Q31M ONE Stop: 11/09/21 15:19 Last Infusion: 11/09/21 16:02 Dose: 0 mls/hr Documented by: [id number] Admin: 11/09/21 15:23 Dose: 999 mls/hr Documented by: [id number] Magnesium Sulfate/Dextrose (Magnesium Sulfate / D5w) 1 gm in 100 mls @ 100 mls/hr IV NOW STA Stop: 11/09/21 16:59 Last Infusion: 11/09/21 17:28 Dose: 0 mls/hr Documented by: [id number] Admin: 11/09/21 16:08 Dose: 100 mls/hr Documented by: [id number] Ceftriaxone Sodium (Rocephin) 1,000 mg in 50 mls @ 100 mls/hr IV NOW STA Stop: 11/09/21 17:00 Last Admin: 11/09/21 17:34 Dose: 100 mls/hr Documented by: [id number] Medical Decision Making Differential Diagnosis COVID, pneumonia, COPD, PE, electrolyte or metabolic abnormality, cardiac disease Medical Records Attestation: I reviewed the patient's medical records. Home Medications Current Medication List: was personally reviewed by me Laboratory Data Attestation: I reviewed the patient's lab results. Result diagrams: 11/09/21 14:24 11/09/21 14:24 Lab Results 11/09/21 11/09/21 11/09/21 Range/Units 14:24 14:24 14:24 WBC 11.81 H (4.8-10.8) K/uL RBC 3.69 L (4.2-5.4) M/uL Hgb 12.8 (12.0-16.0) g/dL Hct 36.0 L (37-47) % MCV 97.6 (80-100) fL MCH 34.7 H (25-34) pg MCHC 35.6 (32-36) g/dL RDW Std Deviation 47.3 H (36.4-46.3) fL RDW Coeff of Arabella 13.3 (11.5-14.5) % Plt Count 258 (130-400) K/uL MPV 10.5 H (7.4-10.4) fL Neutrophils % (Manual) 83.5 % Lymphocytes % (Manual) 7.8 % Monocytes % (Manual) 7.8 % Myelocytes % (Man) 0.9 % Neutrophils # (Manual) 9.86 H (1.4-6.5) K/uL Total Absolute Neuts 9.86 H (1.4-6.5) K/uL Lymphocytes # (Manual) 0.92 L (1.2-3.4) K/uL Total Abs Lymphocytes 0.92 L (1.2-3.4) K/uL Monocytes # (Manual) 0.92 H (0.11-0.59) K/uL Myelocytes # (Manual) 0.11 H (0-0) K/uL PT 12.3 H (9.0-12.0) Seconds INR 1.2 H (0.9-1.1) APTT 34.5 H (21.0-31.0) Seconds PTT Ratio 1.3 Sodium 131 L (136-145) mmol/L Potassium 3.7 (3.5-5.1) mmol/L Chloride 98 (98-107) mmol/L Carbon Dioxide 22 (21-32) mmol/L Anion Gap 11 (3-11) BUN 27 H (6-23) mg/dl Creatinine 1.20 (0.6-1.2) mg/dl Est Cr Clr Drug Dosing 36.7 ml/min Est GFR ( Amer) 50.5 ml/min Est GFR (Non-Af Amer) 43.6 ml/min BUN/Creatinine Ratio 22.5 H (10-20) Glucose 145 H (70-99(Fasting)) mg/dl Lactate (0.4-2.0) mmol/L Calcium 9.8 (8.5-10.1) mg/dl Magnesium 1.6 L (1.7-2.4) mg/dl Total Bilirubin 0.6 (0.2-1.0) mg/dl AST 33 (13-39) U/L ALT 21 (7-52) U/L Alkaline Phosphatase 140 H (34-104) U/L Troponin I 0.03 (0-0.04) ng/ml Total Protein 8.0 (6.0-8.3) gm/dl Albumin 3.5 (3.4-5.0) gm/dl Globulin 4.5 H (2.5-4.0) gm/dl Albumin/Globulin Ratio 0.8 L (0.9-2) Procalcitonin (0-0.5) ng/ml 11/09/21 11/09/21 Range/Units 14:24 14:24 WBC (4.8-10.8) K/uL RBC (4.2-5.4) M/uL Hgb (12.0-16.0) g/dL Hct (37-47) % MCV (80-100) fL MCH (25-34) pg MCHC (32-36) g/dL RDW Std Deviation (36.4-46.3) fL RDW Coeff of Arabella (11.5-14.5) % Plt Count (130-400) K/uL MPV (7.4-10.4) fL Neutrophils % (Manual) % Lymphocytes % (Manual) % Monocytes % (Manual) % Myelocytes % (Man) % Neutrophils # (Manual) (1.4-6.5) K/uL Total Absolute Neuts (1.4-6.5) K/uL Lymphocytes # (Manual) (1.2-3.4) K/uL Total Abs Lymphocytes (1.2-3.4) K/uL Monocytes # (Manual) (0.11-0.59) K/uL Myelocytes # (Manual) (0-0) K/uL PT (9.0-12.0) Seconds INR (0.9-1.1) APTT (21.0-31.0) Seconds PTT Ratio Sodium (136-145) mmol/L Potassium (3.5-5.1) mmol/L Chloride (98-107) mmol/L Carbon Dioxide (21-32) mmol/L Anion Gap (3-11) BUN (6-23) mg/dl Creatinine (0.6-1.2) mg/dl Est Cr Clr Drug Dosing ml/min Est GFR ( Amer) ml/min Est GFR (Non-Af Amer) ml/min BUN/Creatinine Ratio (10-20) Glucose (70-99(Fasting)) mg/dl Lactate 1.1 (0.4-2.0) mmol/L Calcium (8.5-10.1) mg/dl Magnesium (1.7-2.4) mg/dl Total Bilirubin (0.2-1.0) mg/dl AST (13-39) U/L ALT (7-52) U/L Alkaline Phosphatase (34-104) U/L Troponin I (0-0.04) ng/ml Total Protein (6.0-8.3) gm/dl Albumin (3.4-5.0) gm/dl Globulin (2.5-4.0) gm/dl Albumin/Globulin Ratio (0.9-2) Procalcitonin 1.00 H (0-0.5) ng/ml Imaging Data Attestation: I personally reviewed and interpreted this imaging study as follows: My Impression: Chest x-rayno acute infiltrate, failure, pneumothorax seen Radiologist's Impression: Chest X-Ray 11/09/21 13:25 XR chest 1V portable CLINICAL HISTORY: SEPSIS COMPARISON STUDY: Chest radiograph November 04, 2021. FINDINGS: Lung volumes are normal. Small left pleural effusion is noted. Left basilar airspace opacity has progressed. Right lung is clear. No evidence for pulmonary edema. Patient is mildly rotated. IMPRESSION: 1. Increase in left basilar opacity. This may reflect pneumonia. Radiographic f ollow up to ensure resolution is recommended. 2. Small left pleural effusion. ACT 112: Negative or not required by law. Electronically signed by: Estrada Salinas M.D. 11/09/2021 1:51 PM ECG Data Attestation: I personally reviewed and interpreted this ECG as follows: Indication: + SOB/dyspnea Rate (beats per minute): 79 Rhythm: + normal sinus ECG Intervals/blocks: + Normal QRS, + Normal QT and + Normal PA ECG [place]: + Normal ECG ST segments: + Normal ST segments ECG Findings: no PACs or no PVCs Comparison ECG Date: from (11/14/21) Change: no significant change MDM Narrative This patient comes in as described above. She continues to have symptoms after being diagnosed with Covid. She has a fever and shortness of breath and weakness. IV access was established blood work was obtained chest x-ray and EKG was obtained. She was reassessed frequently. She does have a documented positive Covid test here this past Thursday. Chest x-ray was unremarkable and does not suggest congestive heart failure, pneumonia, or pneumothorax. EKG does not suggest acute coronary syndrome or significant arrhythmia. Troponin is not elevated. Count is mildly elevated. The patient did receive IV Decadron as well as IV fluids. She did receive some cough medication as well. Family thinks that she is intermittently mildly confused although she seems mentally coherent and normal at present. They do not feel she can go home they feel she is getting weaker and coughing and having shortness of breath at times. I did consult Dr. Augustin. She has requested antibiotics as chest x-ray suggested infiltrate and she have a secondary infection she has been coughing up greenish phlegm. She was given IV Rocephin and there can also add azithromycin. The patient will be admitted for further treatment and evaluation. Continuous cardiac monitoring: Orders placed in EMR for continuous cardiac monitoring. Upon my interpretation she was noted to be in normal sinus rhythm with a rate of 75. Impression & Plan COVID, Cough, Weakness, Pneumonia Discharge Plan Visit Data Chief Complaint: Illness Stated Complaint: FEVER, COUGH, COVID + 12 DAYS AGO ED Provider: Ezra Simmons Discharge Problem: COVID, Cough, Weakness, Pneumonia Forms Stand Alone Forms: My [facility] Prescriptions Prescriptions: No Action propranolol 10 mg Tablet 10 mg PO BID Qty: 0 RF: 0 fenofibrate nanocrystallized 145 mg Tablet 145 mg PO QPM Qty: 0 RF: 0 aspirin [Ecotrin Low Strength] 81 mg Tablet,Delayed Release (Dr/Ec) 81 mg PO DIRECTED Qty: 0 RF: 0 pantoprazole 40 mg Tablet,Delayed Release (Dr/Ec) 40 mg PO QAM PRN (Reason: Acid Reflux) Qty: 0 RF: 0 omega 9-lwc-yry-fish oil [Fish Oil] 60-90-500 mg Capsule 1 cap PO BID Qty: 0 RF: 0 montelukast 10 mg Tablet 10 mg PO PM Qty: 0 RF: 0 levocetirizine 5 mg Tablet 5 mg PO PM Qty: 0 RF: 0 mometasone-formoterol 200-5 mcg/actuation Hfa Aerosol Inhaler 2 puff INHALATION BID Qty: 0 RF: 0 venlafaxine 150 mg Capsule,Extended Release 24hr 150 mg PO QAM Qty: 0 RF: 2 allopurinol 100 mg Tablet 200 mg PO QAM Qty: 0 RF: 0 lisinopril 10 mg Tablet 10 mg PO QPM Qty: 0 RF: 0 albuterol sulfate [Ventolin HFA] 90 mcg/actuation Hfa Aerosol Inhaler 2 puff INHALATION Q6H PRN (Reason: Shortness Of Breath Or Wheezing) Qty: 0 RF: 0 rosuvastatin 40 mg Tablet 40 mg PO QPM Qty: 0 RF: 0 cholestyramine (with sugar) 4 GM POW 4 g PO BID Qty: 0 RF: 0 venlafaxine 75 mg Tablet 75 mg PO QPM Qty: 0 RF: 0 clonazepam 1 mg Tablet 1 mg PO HS PRN (Reason: Wheezing) Qty: 0 RF: 0 diphenoxylate-atropine 2.5-0.025 mg Tablet 1 tab PO BID Qty: 0 RF: 0 flaxseed oil 1,000 mg Capsule 1,000 mg PO QAM Qty: 0 RF: 0 dicyclomine 10 mg Capsule 10 mg PO BID Qty: 0 RF: 0 alpha lipoic acid 300 mg Capsule 300 mg PO TID Qty: 0 RF: 0 Tresiba FlexTouch U-100 100 unit/mL (3 mL) insulin pen 55 unit SUBCUT QAM RF: 0 Ozempic 0.25 mg or 0.5 mg(2 mg/1.5 mL) pen injector 0.5 mg SUBCUT We@09 RF: 0 levothyroxine 50 mcg tablet 50 mcg PO DAILYBB RF: 0 gabapentin 100 mg capsule 200 mg PO BID RF: 0 primidone 50 mg tablet 50 mg PO HS RF: 0 Referrals Referrals: Celia Boudreaux PA-C [Primary Care Provider] -
--- NOTE | 2021-11-09 13:52 | XRay Report ---
XR chest 1V portable CLINICAL HISTORY: SEPSIS COMPARISON STUDY: Chest radiograph November 04, 2021. FINDINGS: Lung volumes are normal. Small left pleural effusion is noted. Left basilar airspace opacit y has progressed. Right lung is clear. No evidence for pulmonary edema. Patient is mildly rotated. IMPRESSION: 1. Increase in left basilar opacity. This may reflect pneumonia. Radiographic follow up to ensure res olution is recommended. 2. Small left pleural effusion. ACT 112: Negative or not required by law. Electronically signed by: Estrada Salinas M.D. 11/09/2021 1:51 PM
[2021-11-09 14:39] LABS: Hemoglobin 12.8 g/dL (12.0-16.0); Mean Corpuscular Hemoglobin 34.7 pg (25-34); Mean Corpuscular Hgb Conc 35.6 g/dL (32-36); Mean Corpuscular Volume 97.6 fL (80-100); Mean Platelet Volume 10.5 fL (7.4-10.4); Platelet Count 258 K/uL (130-400); RDW Coefficient of Variation 13.3 % (11.5-14.5); RDW Standard Deviation 47.3 fL (36.4-46.3); Red Blood Count 3.69 M/uL (4.2-5.4); White Blood Count 11.81 K/uL (4.8-10.8)
[2021-11-09] MEDS ORDERED: SODIUM CHLORIDE 0.9% 500 ML IV ONE (14:49)
[2021-11-09] MEDS ORDERED: dexAMETHasone**PF** 10 MG/ML VIAL IV ONE (14:49)
[2021-11-09 14:52] LABS: INR 1.2 (0.9-1.1); Partial Thromboplastin Ratio 1.3; Partial Thromboplastin Time 34.5 Seconds (21.0-31.0); Prothrombin Time 12.3 Seconds (9.0-12.0)
[2021-11-09 15:00] LABS: ALC (manual) 0.92 K/uL (1.2-3.4); ANC (manual) 9.86 K/uL (1.4-6.5); Lymphocytes # (manual) 0.92 K/uL (1.2-3.4); Lymphocytes % (manual) 7.8 %; Monocytes # (manual) 0.92 K/uL (0.11-0.59); Monocytes % (manual) 7.8 %; Myelocytes # (manual) 0.11 K/uL (0-0); Myelocytes % (manual) 0.9 %; Neutrophils # (manual) 9.86 K/uL (1.4-6.5); Neutrophils % (manual) 83.5 %
[2021-11-09 15:02] LABS: Albumin Globulin Ratio 0.8 (0.9-2); Albumin Level 3.5 gm/dl (3.4-5.0); BUN Creatinine Ratio 22.5 (10-20); Bilirubin,Total 0.6 mg/dl (0.2-1.0); Calcium 9.8 mg/dl (8.5-10.1); Creatinine Clr Calc Pharmacy 36.7 ml/min; Est GFR (African American) 50.5 ml/min; Est GFR (Non-African American) 43.6 ml/min; Globulin 4.5 gm/dl (2.5-4.0); Magnesium 1.6 mg/dl (1.7-2.4); Potassium 3.7 mmol/L (3.5-5.1)
[2021-11-09 15:04] LABS: Troponin I 0.03 ng/ml (0-0.04)
[2021-11-09] MEDS ORDERED: MAGNESIUM SULFATE / D5W 1 GM/100 ML BAG IV STA (16:00)
--- NOTE | 2021-11-09 16:25 | Electrocardiogram Report ---
Test Reason : Blood Pressure : / mmHG Vent. Rate : 079 BPM Atrial Rate : 079 BPM P-R Int : 154 ms QRS Dur : 092 ms QT Int : 394 ms P-R-T Axes : 060 015 035 degrees QTc Int : 451 ms Normal sinus rhythm with sinus arrhythmia Normal ECG When compared with ECG of 04-NOV-2021 20:30, No significant change was found Confirmed by Kishor Daniels ([id number]) on 11/09/2021 4:24:36 PM Referred By: REFERRED SELF Confirmed By:Mehrdad Daniels
[2021-11-09] MEDS ORDERED: cefTRIAXone SODIUM 1,000 MG/50 ML BAG IV STA (16:31)
[2021-11-09] MEDS ORDERED: POLYETHYLENE (MIRALAX) 17 GM PACK PO PRN (16:33)
[2021-11-09] MEDS ORDERED: ACETAMINOPHEN 325 MG TAB PO PRN (16:33)
[2021-11-09] MEDS ORDERED: HYDROcodone/HOMATROPINE SYRUP 5MG/1.5MG 5ML UDP PO STA (16:52)
--- NOTE | 2021-11-09 17:48 | History & Physical Report ---
Date of Service November 09, 2021 Assessment & Plan (1) Left lower lobe pneumonia: Plan: Ongoing symptoms of respiratory illness with covid-19 positive patient who also has an elevated procalcitonin. This may be simply covid pneumonia, however, will start antibiotics for bacterial pneumonia and follow clinical response. At this time, she is not hypoxic, and therefore, doesn't qualify for ongoing steroids or antiviral therapy. Blood cultures pending. (2) Weakness: Plan: Likely a result of covid and pneumonia. PT/OT ordered (3) COVID-19 virus infection: Plan: Plan as above. Supportive care for now with cough drops/syrup, nebs PRN. Will adjust treatment regimen if she becomes hypoxic. (4) Hyponatremia: Plan: Likely from recent poor appetite and poor PO intake. Repeat level in am. (5) Hypomagnesemia: Plan: Likely from recent poor appetite and poor PO intake. She received IV replacement in the ER. Repeat level in am. (6) Diabetes mellitus, type II: Plan: Patient notes recent hyperglycemia at home. Will place her on hospital protocol for basal bolus insulin during her stay. A1C check in am. (7) Depression: Plan: chronic, stable. Cont venlafaxine per home regimen. (8) Hypertension: Plan: chronic, elevated in the Er this evening. Will recheck after PM dose of lisinopril 10mg per home regimen. (9) Hypothyroidism: Plan: chronic, stable. TSH in am. Cont thyroid replacement per home regimen. (10) DVT prophylaxis: Plan: Lovenox DNR/DNI per she and her daughter (at bedside) on admission Dispo-to tele Nicole Augustin DO [facility] Hospitalist History of Present Illness Chief Complaint: weakness and coughing Primary Care Provider: Celia Boudreaux PA-C vaccinated patient presents with worsening covdi-19 infectious symptoms. She reports asymptomatic testing after an exposure to a sick family member. Symptoms started after arthur first covid positive test, which was 12 days ago. One week ago she started developing, coughing, SOB, with progressively worse bouts of coughing causing chest discomfort. She was using a home nebulizer q4h and other medications she had on hand. She reports typically having very controlled blood sugar however, recently numbers higher than normal, between 200 and 300. She is not eating and was found to have a Na 131 and a Mag 1.6. Her biggest concern is excessive severe coughing and weakness. ROS does reveal a fever at home with last temp 101F prior to arrival in the ER this morning. Allergies Allergy/AdvReac Type Severity Reaction Status Date / Time formaldehyde Allergy Unknown SKIN Verified 11/09/21 15:11 IRRTIATION AND PEELING Isothiazolinones Allergy Unknown SKIN Verified 11/09/21 15:11 IRRITATION AND PEELING quaternium 15 Allergy Unknown SKIN Verified 11/09/21 15:11 IRRITATION AND PEELING Home Medications Medication Instructions Recorded Confirmed Type propranolol 10 mg tablet 10 mg PO BID #0 02/15/07 11/09/21 History fenofibrate nanocrystallized 145 145 mg PO QPM #0 03/26/10 11/09/21 History mg tablet aspirin 81 mg tablet,delayed 81 mg PO DIRECTED #0 tab 02/10/12 11/09/21 History release (Ecotrin Low Strength) montelukast 10 mg tablet 10 mg PO PM #0 tab 02/10/12 11/09/21 History omega 5-dry-zfi-fish oil 60 mg-90 1 cap PO BID #0 cap 02/10/12 11/09/21 History mg-500 mg capsule (Fish Oil) pantoprazole 40 mg tablet,delayed 40 mg PO QAM PRN #0 02/10/12 11/09/21 History release levocetirizine 5 mg tablet 5 mg PO PM #0 09/12/15 11/09/21 History albuterol sulfate 90 mcg/actuation 2 puff INHALATION Q6H PRN #0 10/04/17 11/09/21 History aerosol inhaler (Ventolin HFA) allopurinol 100 mg tablet 200 mg PO QAM #0 10/04/17 11/09/21 History cholestyramine (with sugar) 4 g PO BID #0 10/04/17 11/09/21 History lisinopril 10 mg tablet 10 mg PO QPM #0 10/04/17 11/09/21 History rosuvastatin 40 mg tablet 40 mg PO QPM #0 10/04/17 11/09/21 History venlafaxine 150 mg 150 mg PO QAM #0 10/04/17 11/09/21 History capsule,extended release 24 hr alpha lipoic acid 300 mg capsule 300 mg PO TID #0 11/26/17 11/09/21 History clonazepam 1 mg tablet 1 mg PO HS PRN #0 tab 11/26/17 11/09/21 History dicyclomine 10 mg capsule 10 mg PO BID #0 11/26/17 11/09/21 History diphenoxylate-atropine 2.5 1 tab PO BID #0 tab 11/26/17 11/09/21 History mg-0.025 mg tablet flaxseed oil 1,000 mg capsule 1,000 mg PO QAM #0 11/26/17 11/09/21 History venlafaxine 75 mg tablet 75 mg PO QPM #0 tab 11/26/17 11/09/21 History gabapentin 100 mg capsule 200 mg PO BID 11/09/21 11/09/21 History insulin degludec 100 unit/mL (3 55 unit SUBCUT QAM 11/09/21 11/09/21 History mL) subcutaneous pen (Tresiba FlexTouch U-100 insulin) levothyroxine 50 mcg tablet 50 mcg PO DAILYBB 11/09/21 11/09/21 History primidone 50 mg tablet 50 mg PO HS 11/09/21 11/09/21 History semaglutide (Ozempic) 0.5 mg SUBCUT We@09 11/09/21 11/09/21 History Past Med/Surg History Medical History Asthma CKD (chronic kidney disease), stage III Depression Diabetes mellitus, type II Essential tremor Gout Hypertension Hypothyroidism Kidney disease Meningioma MGUS (monoclonal gammopathy of unknown significance) Psoriasis RLS (restless legs syndrome) Ulcerative colitis in remission Surgical History S/P colectomy S/P NICHELLE (total abdominal hysterectomy) Status post total knee replacement, left Family History Mother Myocardial infarction Sister Hypertension Social History Smoking Status: Former smoker Cigarettes Per Day: 20; Second Hand Exposure: No; Hx Alcohol Use: No Hx Substance Use: No Preferred Language: Belarusian Communication Ability: 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 Physical Exam Physical Exam: CONSTITUTIONAL: WNWD, vitals as above, generally well- appearing, NAD EYES: normal conjunctivae, no scleral icterus ENT: external ear and nose normal, MMM NECK: trachea midline, RESPIRATORY: clear to auscultation bilaterally, no crackles, rales or wheezes, normal respiratory effort CARDIOVASCULAR: regular rate and rhythm, S1 and 2 heard without murmurs, gallops or rubs, no JVD, no peripheral edema GASTROINTESTINAL: soft, nontender, ND, no guarding MUSCULOSKELETAL: strength 5/5 throughout, head is normocephalic and atraumatic SKIN: warm and dry NEUROLOGIC: CN 2-12 grossly intact, no sensory deficit, normal cognition, normal speech, no gross focal deficits. PSYCHIATRIC: alert cooperative and oriented to person, place and time. Results & Data Results & Data ([facility]) Vital Signs (Past 12 Hours) Vital Signs Temp Pulse Pulse Resp BP BP Pulse Ox 11/09/21 16:00 36.5 C 76 18 181/72 H 94 11/09/21 12:50 36.4 C L 84 18 166/72 H 93 Laboratory Results Short CBC 11/09/21 Range/Units 14:24 WBC 11.81 H (4.8-10.8) K/uL Hgb 12.8 (12.0-16.0) g/dL Hct 36.0 L (37-47) % Plt Count 258 (130-400) K/uL BMP 11/09/21 14:24 Sodium 131 L Potassium 3.7 Chloride 98 Carbon Dioxide 22 BUN 27 H Creatinine 1.20 Glucose 145 H Calcium 9.8 Cardiac Enzymes 11/09/21 Range/Units 14:24 Troponin I 0.03 (0-0.04) ng/ml Liver Function 11/09/21 Range/Units 14:24 Total Bilirubin 0.6 (0.2-1.0) mg/dl AST 33 (13-39) U/L ALT 21 (7-52) U/L Alkaline Phosphatase 140 H (34-104) U/L Albumin 3.5 (3.4-5.0) gm/dl Diagnostic Findings Chest X-Ray 11/09/21 13:25 XR chest 1V portable CLINICAL HISTORY: SEPSIS COMPARISON STUDY: Chest radiograph November 04, 2021. FINDINGS: Lung volumes are normal. Small left pleural effusion is noted. Left basilar airspace opacity has progressed. Right lung is clear. No evidence for pulmonary edema. Patient is mildly rotated. IMPRESSION: 1. Increase in left basilar opacity. This may reflect pneumonia. Radiographic follow up to ensure resolution is recommended. 2. Small left pleural effusion. ACT 112: Negative or not required by law. Electronically signed by: Estrada Salinas M.D. 11/09/2021 1:51 PM Medications Administered decadron in ER Code Status & VTE Plan VTE Prophylaxis Plan VTE Prophylaxis will be ordered: Yes
[2021-11-09] MEDS ORDERED: PANTOprazole 40 MG TAB PO PRN (19:33)
[2021-11-09] MEDS ORDERED: clonazePAM 1 MG TAB PO PRN (19:33)
[2021-11-09] MEDS ORDERED: DIPHENOXYLATE/ATROPINE 2.5/0.025MG TAB PO PRN (19:33)
[2021-11-09] MEDS ORDERED: DEXTROSE 50% 50 ML SYRINGE IV PRN (19:33)
[2021-11-09] MEDS ORDERED: GLUCAGON FOR INJ 1 MG VIAL SQ PRN (19:33)
[2021-11-09] MEDS ORDERED: GLUCOSE 40% GEL 15 GM TUBE PO PRN (19:33)
[2021-11-09] MEDS ORDERED: ALBUTEROL HFA 8 GM INHALER INH PRN (19:33)
[2021-11-09] MEDS ORDERED: CARBOHYDRATES FOR HYPOGLYCEMIA PO PRN (19:33)
[2021-11-09] MEDS ORDERED: GLUCOSE 10 TABS/TUBE PO PRN (19:33)
[2021-11-09] MEDS: ENOXAPARIN INJ 30 MG/0.3 ML SYR SQ SCH (20:34)
[2021-11-09] MEDS: AZITHROMYCIN 500 MG in DEXTROSE 5% 250 ML IV SCH (20:35)
[2021-11-09] MEDS: BENZONATATE 100 MG CAPSULE PO SCH (22:14)
[2021-11-09] MEDS: CETIRIZINE HCL 10 MG TABLET PO SCH (22:54)
[2021-11-09] MEDS: buPROPion HCl 75 MG TABLET PO SCH (22:54)
[2021-11-09] MEDS: DICYCLOMINE HCL 10 MG CAP PO SCH (22:56)
[2021-11-09] MEDS: FENOFIBRATE NANOCRYSTALLIZED 145 MG TABLET PO SCH (22:56)
[2021-11-09] MEDS: lisinopril 10 MG TAB PO SCH (22:57)
[2021-11-09] MEDS: GABAPENTIN 100 MG CAP PO SCH (22:57)
[2021-11-09] MEDS: PROPRANOLOL HCL 10 MG TAB PO SCH (22:58)
[2021-11-09] MEDS: MONTELUKAST SODIUM 10 MG TABLET PO SCH (22:58)
[2021-11-09] MEDS: PRIMIDONE 50 MG TAB PO SCH (22:58)
[2021-11-09] MEDS: ROSUVASTATIN CALCIUM 20 MG TAB PO SCH (22:59)
[2021-11-09] MEDS: INSULIN GLARGINE SOLOSTAR 100 UNITS/ML 3 ML PEN SC SCH (22:59)
[2021-11-09] MEDS: INSULIN ASPART PER UNIT SC SCH (23:00)
[2021-11-10] MEDS: CHOLESTYRAMINE LIGHT 4 GM PKT PO SCH ×3 (00:33→22:33)
[2021-11-10 01:55] LABS: Appearance Urine Clear (Clear); Bilirubin Urine Negative (Negative); Blood Urine Negative (Negative); Color Urine Yellow; Glucose Urine UA Negative (Negative); Ketones Urine Negative (Negative); Leukocyte Esterase Urine Negative (Negative); Nitrite Urine Negative (Negative); Protein Urine Negative (Negative); Specific Gravity Urine 1.009 (1.000-1.030); Urobilinogen Urine Negative (Negative)
[2021-11-10] MEDS: LEVOTHYROXINE SODIUM 50 MCG TABLET PO SCH (06:24)
[2021-11-10] MEDS: PROPRANOLOL HCL 10 MG TAB PO SCH ×2 (08:05→20:58)
[2021-11-10] MEDS: DICYCLOMINE HCL 10 MG CAP PO SCH ×2 (08:05→20:57)
[2021-11-10] MEDS: GABAPENTIN 100 MG CAP PO SCH ×2 (08:05→20:55)
[2021-11-10] MEDS: BENZONATATE 100 MG CAPSULE PO SCH ×3 (08:05→20:56)
[2021-11-10] MEDS: ASPIRIN 81 MG ECTAB PO SCH (08:05)
[2021-11-10] MEDS: allopurinoL 100 MG TAB PO SCH (08:05)
[2021-11-10] MEDS: buPROPion HCl 75 MG TABLET PO SCH ×2 (08:05→20:56)
[2021-11-10 08:18] LABS: C Reactive Protein 29.6 mg/dl (0-0.5); Calcium 9.5 mg/dl (8.5-10.1); Creatinine Clr Calc Pharmacy 41.4 ml/min; Phosphorus 4.8 mg/dl (2.5-4.9); Potassium 4.1 mmol/L (3.5-5.1)
[2021-11-10 08:30] LABS: Thyroid Stimulating Hormone 0.199 uIu/ml (0.300-4.500)
[2021-11-10] MEDS: INSULIN ASPART PER UNIT SC SCH ×4 (08:55→20:59)
[2021-11-10] MEDS: INSULIN GLARGINE SOLOSTAR 100 UNITS/ML 3 ML PEN SC SCH ×2 (08:56→21:39)
[2021-11-10] MEDS ORDERED: VENLAFAXINE HCL XR 150 MG CAPXR PO SCH (09:00)
[2021-11-10 09:03] LABS: T4 Free Thyroxine 0.77 ng/dl (0.61-1.60)
[2021-11-10 09:09] LABS: Hematocrit (blood only) 33.7 % (37-47); Hemoglobin 11.9 g/dL (12.0-16.0); Mean Corpuscular Hemoglobin 33.9 pg (25-34); Mean Corpuscular Hgb Conc 35.3 g/dL (32-36); Mean Platelet Volume 10.7 fL (7.4-10.4); Platelet Count 279 K/uL (130-400); RDW Coefficient of Variation 13.1 % (11.5-14.5); RDW Standard Deviation 45.2 fL (36.4-46.3); Red Blood Count 3.51 M/uL (4.2-5.4); White Blood Count 8.62 K/uL (4.8-10.8)
--- NOTE | 2021-11-10 12:49 | Hospitalist Progress Note ---
Date of Service November 10, 2021 Assessment & Plan (1) Left lower lobe pneumonia: (2) Weakness: (3) COVID-19 virus infection: Plan: Ongoing symptoms of respiratory illness with covid-19 positive patient who also has an elevated procalcitonin. Possible secondary bacterial pneumonia in a COVID positive patient Continue ceftriaxone and azithromycin Continue supportive care with antitussive Remains on room air Hold off COVID specific therapies at this time (4) Hyponatremia: Plan: Likely from recent poor appetite and poor PO intake. Na is 132 today (5) Hypomagnesemia: Plan: Likely from recent poor appetite and poor PO intake. Mg was 1.6 on admission Was repleted. Mag is 2 this morning (6) Diabetes mellitus, type II: Plan: Patient notes recent hyperglycemia at home. Was placed on hospital protocol for basal bolus insulin during her stay. A1C still pending (7) Depression: Plan: chronic, stable. Cont venlafaxine per home regimen. (8) Hypertension: Plan: Stable today Continue lisinopril (9) Hypothyroidism: Plan: chronic, stable. T TSh 0.199, FT4 0.77 Cont thyroid replacement per home regimen. (10) DVT prophylaxis: Plan: Lovenox DNR/DNI Dispo-tele Admission and Anticipated Discharge Date Admission Date: November 09, 2021 Subjective Patient seen and examined Patient reports feeling better today Cough bouts are improving Denied any chest pain, shortness of breath Reported urinary incontinence with coughing which has improved. Denied dysuria, freq, urgency, hematuria Denied fever, chills, nausea, vomiting, abd pain Reported improved appetite today Physical Exam Constitutional: + well hydrated; no acute distress Eyes: PERRL, conjunctivae normal, anicteric sclerae ENMT: external ear and nose normal, oropharynx normal Respiratory: normal respiratory effort, lungs clear to auscultation Cardiovascular: Rate/Rhythm: regular rate and regular rhythm S1 S2 Gastrointestinal (Abdomen): normal bowel sounds, soft, nontender, no hepatosplenomegaly Musculoskeletal: no cyanosis or clubbing, extremities motor strength 5/5 Neurologic: PERRL, EOMI, accommodation nl, no face palsy, no dysarthria Psychiatric: A+Ox3, euthymic affect Results & Data Results & Data ([facility]) Vital Signs (Past 12 Hours) Vital Signs Temp Pulse Resp BP Pulse Ox 11/10/21 11:36 36.8 C 74 18 136/77 96 11/10/21 07:45 36.6 C 81 19 163/74 H 93 11/10/21 03:00 36.7 C 75 18 148/74 H 90 Laboratory Results Abnormal lab results 11/09/21 11/09/21 11/09/21 Range/Units 14:24 14:24 14:24 WBC 11.81 H (4.8-10.8) K/uL RBC 3.69 L (4.2-5.4) M/uL Hgb (12.0-16.0) g/dL Hct 36.0 L (37-47) % MCH 34.7 H (25-34) pg RDW Std Deviation 47.3 H (36.4-46.3) fL MPV 10.5 H (7.4-10.4) fL Neutrophils # (Manual) 9.86 H (1.4-6.5) K/uL Total Absolute Neuts 9.86 H (1.4-6.5) K/uL Lymphocytes # (Manual) 0.92 L (1.2-3.4) K/uL Total Abs Lymphocytes 0.92 L (1.2-3.4) K/uL Monocytes # (Manual) 0.92 H (0.11-0.59) K/uL Myelocytes # (Manual) 0.11 H (0-0) K/uL PT 12.3 H (9.0-12.0) Seconds INR 1.2 H (0.9-1.1) APTT 34.5 H (21.0-31.0) Seconds Sodium 131 L (136-145) mmol/L BUN 27 H (6-23) mg/dl BUN/Creatinine Ratio 22.5 H (10-20) Glucose 145 H (70-99(Fasting)) mg/dl POC Glucose (70-99) mg/dl Magnesium 1.6 L (1.7-2.4) mg/dl Alkaline Phosphatase 140 H (34-104) U/L C-Reactive Protein (0-0.5) mg/dl Globulin 4.5 H (2.5-4.0) gm/dl Albumin/Globulin Ratio 0.8 L (0.9-2) Procalcitonin (0-0.5) ng/ml TSH (0.300-4.500) uIu/ml 11/09/21 11/09/21 11/10/21 Range/Units 14:24 19:56 07:27 WBC (4.8-10.8) K/uL RBC (4.2-5.4) M/uL Hgb (12.0-16.0) g/dL Hct (37-47) % MCH (25-34) pg RDW Std Deviation (36.4-46.3) fL MPV (7.4-10.4) fL Neutrophils # (Manual) (1.4-6.5) K/uL Total Absolute Neuts (1.4-6.5) K/uL Lymphocytes # (Manual) (1.2-3.4) K/uL Total Abs Lymphocytes (1.2-3.4) K/uL Monocytes # (Manual) (0.11-0.59) K/uL Myelocytes # (Manual) (0-0) K/uL PT (9.0-12.0) Seconds INR (0.9-1.1) APTT (21.0-31.0) Seconds Sodium (136-145) mmol/L BUN (6-23) mg/dl BUN/Creatinine Ratio (10-20) Glucose (70-99(Fasting)) mg/dl POC Glucose 167 H (70-99) mg/dl Magnesium (1.7-2.4) mg/dl Alkaline Phosphatase (34-104) U/L C-Reactive Protein (0-0.5) mg/dl Globulin (2.5-4.0) gm/dl Albumin/Globulin Ratio (0.9-2) Procalcitonin 1.00 H (0-0.5) ng/ml TSH 0.199 L (0.300-4.500) uIu/ml 11/10/21 11/10/21 11/10/21 Range/Units 07:27 07:27 07:27 WBC (4.8-10.8) K/uL RBC 3.51 L (4.2-5.4) M/uL Hgb 11.9 L (12.0-16.0) g/dL Hct 33.7 L (37-47) % MCH (25-34) pg RDW Std Deviation (36.4-46.3) fL MPV 10.7 H (7.4-10.4) fL Neutrophils # (Manual) (1.4-6.5) K/uL Total Absolute Neuts (1.4-6.5) K/uL Lymphocytes # (Manual) (1.2-3.4) K/uL Total Abs Lymphocytes (1.2-3.4) K/uL Monocytes # (Manual) (0.11-0.59) K/uL Myelocytes # (Manual) (0-0) K/uL PT (9.0-12.0) Seconds INR (0.9-1.1) APTT (21.0-31.0) Seconds Sodium 132 L (136-145) mmol/L BUN 31 H (6-23) mg/dl BUN/Creatinine Ratio 29.0 H (10-20) Glucose 158 H (70-99(Fasting)) mg/dl POC Glucose (70-99) mg/dl Magnesium (1.7-2.4) mg/dl Alkaline Phosphatase (34-104) U/L C-Reactive Protein 29.60 H (0-0.5) mg/dl Globulin (2.5-4.0) gm/dl Albumin/Globulin Ratio (0.9-2) Procalcitonin 0.88 H (0-0.5) ng/ml TSH (0.300-4.500) uIu/ml 11/10/21 11/10/21 Range/Units 07:42 11:34 WBC (4.8-10.8) K/uL RBC (4.2-5.4) M/uL Hgb (12.0-16.0) g/dL Hct (37-47) % MCH (25-34) pg RDW Std Deviation (36.4-46.3) fL MPV (7.4-10.4) fL Neutrophils # (Manual) (1.4-6.5) K/uL Total Absolute Neuts (1.4-6.5) K/uL Lymphocytes # (Manual) (1.2-3.4) K/uL Total Abs Lymphocytes (1.2-3.4) K/uL Monocytes # (Manual) (0.11-0.59) K/uL Myelocytes # (Manual) (0-0) K/uL PT (9.0-12.0) Seconds INR (0.9-1.1) APTT (21.0-31.0) Seconds Sodium (136-145) mmol/L BUN (6-23) mg/dl BUN/Creatinine Ratio (10-20) Glucose (70-99(Fasting)) mg/dl POC Glucose 149 H 150 H (70-99) mg/dl Magnesium (1.7-2.4) mg/dl Alkaline Phosphatase (34-104) U/L C-Reactive Protein (0-0.5) mg/dl Globulin (2.5-4.0) gm/dl Albumin/Globulin Ratio (0.9-2) Procalcitonin (0-0.5) ng/ml TSH (0.300-4.500) uIu/ml
[2021-11-10] MEDS ORDERED: cefTRIAXone SODIUM 1,000 MG in DEXTROSE 5% 50 ML IV SCH (18:00)
[2021-11-10] MEDS: AZITHROMYCIN 500 MG in DEXTROSE 5% 250 ML IV SCH (19:18)
[2021-11-10] MEDS: ENOXAPARIN INJ 30 MG/0.3 ML SYR SQ SCH (19:18)
[2021-11-10] MEDS: PRIMIDONE 50 MG TAB PO SCH (20:56)
[2021-11-10] MEDS: lisinopril 10 MG TAB PO SCH (20:56)
[2021-11-10] MEDS: MONTELUKAST SODIUM 10 MG TABLET PO SCH (20:57)
[2021-11-10] MEDS: CETIRIZINE HCL 10 MG TABLET PO SCH (20:57)
[2021-11-10] MEDS: FENOFIBRATE NANOCRYSTALLIZED 145 MG TABLET PO SCH (20:57)
[2021-11-10] MEDS: ROSUVASTATIN CALCIUM 20 MG TAB PO SCH (20:58)
[2021-11-11] MEDS: LEVOTHYROXINE SODIUM 50 MCG TABLET PO SCH (06:24)
[2021-11-11 07:16] LABS: Hematocrit (blood only) 34.7 % (37-47); Hemoglobin 12.2 g/dL (12.0-16.0); Mean Corpuscular Hemoglobin 34.3 pg (25-34); Mean Corpuscular Hgb Conc 35.2 g/dL (32-36); Mean Corpuscular Volume 97.5 fL (80-100); Mean Platelet Volume 9.9 fL (7.4-10.4); Platelet Count 329 K/uL (130-400); RDW Coefficient of Variation 13.2 % (11.5-14.5); RDW Standard Deviation 47.3 fL (36.4-46.3); Red Blood Count 3.56 M/uL (4.2-5.4); White Blood Count 10.55 K/uL (4.8-10.8)
[2021-11-11 07:22] LABS: Estimated Average Glucose 128 mg/dl; Hemoglobin A1C 6.1 % (4.5-5.6)
[2021-11-11 07:37] LABS: BUN Creatinine Ratio 29.9 (10-20); Calcium 9.4 mg/dl (8.5-10.1); Creatinine Clr Calc Pharmacy 32.3 ml/min; Est GFR (Non-African American) 37.1 ml/min; Potassium 4.3 mmol/L (3.5-5.1)
[2021-11-11] MEDS: allopurinoL 100 MG TAB PO SCH (08:00)
[2021-11-11] MEDS: INSULIN ASPART PER UNIT SC SCH ×2 (08:00→12:16)
[2021-11-11] MEDS: buPROPion HCl 75 MG TABLET PO SCH (08:00)
[2021-11-11] MEDS: BENZONATATE 100 MG CAPSULE PO SCH ×2 (08:00→13:31)
[2021-11-11] MEDS: ASPIRIN 81 MG ECTAB PO SCH (08:00)
[2021-11-11] MEDS: DICYCLOMINE HCL 10 MG CAP PO SCH (08:01)
[2021-11-11] MEDS: PROPRANOLOL HCL 10 MG TAB PO SCH (08:01)
[2021-11-11] MEDS: GABAPENTIN 100 MG CAP PO SCH (08:01)
[2021-11-11] MEDS: INSULIN GLARGINE SOLOSTAR 100 UNITS/ML 3 ML PEN SC SCH (08:53)
[2021-11-11] MEDS: CHOLESTYRAMINE LIGHT 4 GM PKT PO SCH (10:41)
[2021-11-11] MEDS ORDERED: guaiFENesin 600 MG TABCR PO ONE (12:16)
--- NOTE | 2021-11-11 14:22 | Discharge Summary ---
Date of Service November 11, 2021 Admission HPI Per Admitting Provider vaccinated patient presents with worsening covdi-19 infectious symptoms. She reports asymptomatic testing after an exposure to a sick family member. Symptoms started after arthur first covid positive test, which was 12 days ago. One week ago she started developing, coughing, SOB, with progressively worse bouts of coughing causing chest discomfort. She was using a home nebulizer q4h and other medications she had on hand. She reports typically having very controlled blood sugar however, recently numbers higher than normal, between 200 and 300. She is not eating and was found to have a Na 131 and a Mag 1.6. Her biggest concern is excessive severe coughing and weakness. ROS does reveal a fever at home with last temp 101F prior to arrival in the ER this morning. Admission Exam Per Admitting Provider CONSTITUTIONAL: WNWD, vitals as above, generally well-appearing, NAD EYES: normal conjunctivae, no scleral icterus ENT: external ear and nose normal, MMM NECK: trachea midline, RESPIRATORY: clear to auscultation bilaterally, no crackles, rales or wheezes, normal respiratory effort CARDIOVASCULAR: regular rate and rhythm, S1 and 2 heard without murmurs, gallops or rubs, no JVD, no peripheral edema GASTROINTESTINAL: soft, nontender, ND, no guarding MUSCULOSKELETAL: strength 5/5 throughout, head is normocephalic and atraumatic SKIN: warm and dry NEUROLOGIC: CN 2-12 grossly intact, no sensory deficit, normal cognition, normal speech, no gross focal deficits. PSYCHIATRIC: alert cooperative and oriented to person, place and time. Principal Diagnosis Left lung pneumonia COVID 19 infection Weakness Discharge Exam Constitutional + well hydrated; no acute distress Eyes PERRL, conjunctivae normal, anicteric sclerae ENMT external ear and nose normal, oropharynx normal Respiratory normal respiratory effort, lungs clear to auscultation Cardiovascular Rate/Rhythm: regular rate and regular rhythm S1 S2 Gastrointestinal (Abdomen) normal bowel sounds, soft, nontender, no hepatosplenomegaly Musculoskeletal no cyanosis or clubbing, extremities motor strength 5/5 Neurologic PERRL, EOMI, accommodation nl, no face palsy, no dysarthria Psychiatric A+Ox3, euthymic affect Discharge Data Allergies Allergy/AdvReac Type Severity Reaction Status Date / Time formaldehyde Allergy Unknown SKIN Verified 11/09/21 15:11 IRRTIATION AND PEELING Isothiazolinones Allergy Unknown SKIN Verified 11/09/21 15:11 IRRITATION AND PEELING quaternium 15 Allergy Unknown SKIN Verified 11/09/21 15:11 IRRITATION AND PEELING Consultations 11/09/21 16:31 ED Decision to Admit Stat Hospital Course (1) Left lower lobe pneumonia: (2) Weakness: (3) COVID-19 virus infection: Possible secondary bacterial pneumonia in a COVID positive patient Had elevated procalcitonin Was treated ceftriaxone and azithromycin Got supportive care with antitussive Patient's symptoms improved significantly today and she asked to be discharged home Cough improved. Shortness of breath resolved Remained on room air. Hence no need for COVID specific therapies (4) Hyponatremia: Likely from recent poor appetite and poor PO intake. Na is 132 Anorexia resolved (5) Hypomagnesemia: Likely from recent poor appetite and poor PO intake. Mg was 1.6 on admission Was repleted and improved to 2 (6) Diabetes mellitus, type II: Patient notes recent hyperglycemia at home. A1C 6.1 Carbohydrate controlled diet Continue home meds (7) Depression: chronic, stable. Cont venlafaxine per home regimen. (8) Hypertension: Continue lisinopril (9) Hypothyroidism: chronic, stable. T TSh 0.199, FT4 0.77 Cont thyroid replacement per home regimen. Total Time Total Time Spent Total Time Spent (In Minutes): 45 Total Time Includes: Examination of the Patient, Discharge Planning and Medication Reconciliation Discharge Plan Discharge Items Patient Disposition: Home - Self-Care Reason For Visit: WEAKNESS, COVID, PNEUMONIA Discharge Diagnosis: Left lung pneumonia COVID 19 infection Weakness Activity: Resume your previous activity Non-emergency contact: Primary Care Provider Call non-emergency contact if: you have any medication questions Follow-up/Referrals: Celia Boudreaux PA-C [Primary Care Provider] - (*PLEASE NOTE THAT YOUR PREVIOUSLY SCHEDULED APPOINTMENT ON 11/14 IS CANCELLED.* Date & Time 11/21/2021 12:20 PM Provider Teresa Lomeli PA-C Department [facility] ) Diet: Carb Consistent or DM2 and Heart Healthy Addtl Attending Provider Instructions: Mrs Johns. You came to the hospital complaining of cough and shortness of breath. You were evaluated and found to have left lung pneumonia and COVID 19 infection. You were started on antibiotics. Your symptoms improved. You are being discharged home on antibiotics to complete treatment. Please ensure you adhere to home isolation instructions as we discussed and follow up with your Primary Doctor. It was a pleasure taking care of you. Pending Studies at Discharge: No Stand-Alone Forms: My [facility], Smoking Cessation Medications and DC Order Prescriptions: New amoxicillin-pot clavulanate 875-125 mg tablet 1 tab PO BID 3 Days Qty: 6 RF: 0 azithromycin 500 mg tablet 500 mg PO DAILY Qty: 1 RF: 0 guaifenesin 1,200 mg tablet extended release 12hr 1,200 mg PO BID Qty: 10 RF: 0 benzonatate 100 mg capsule 100 mg PO TID PRN (Reason: cough) Qty: 20 RF: 0 Continued propranolol 10 mg Tablet 10 mg PO BID Qty: 0 RF: 0 fenofibrate nanocrystallized 145 mg Tablet 145 mg PO QPM Qty: 0 RF: 0 aspirin [Ecotrin Low Strength] 81 mg Tablet,Delayed Release (Dr/Ec) 81 mg PO DIRECTED Qty: 0 RF: 0 pantoprazole 40 mg Tablet,Delayed Release (Dr/Ec) 40 mg PO QAM PRN (Reason: Acid Reflux) Qty: 0 RF: 0 omega 0-fhe-bsv-fish oil [Fish Oil] 60-90-500 mg Capsule 1 cap PO BID Qty: 0 RF: 0 montelukast 10 mg Tablet 10 mg PO PM Qty: 0 RF: 0 levocetirizine 5 mg Tablet 5 mg PO PM Qty: 0 RF: 0 allopurinol 100 mg Tablet 200 mg PO QAM Qty: 0 RF: 0 lisinopril 10 mg Tablet 10 mg PO QPM Qty: 0 RF: 0 rosuvastatin 40 mg Tablet 40 mg PO QPM Qty: 0 RF: 0 cholestyramine (with sugar) 4 GM POW 4 g PO BID Qty: 0 RF: 0 clonazepam 1 mg Tablet 1 mg PO HS PRN (Reason: Wheezing) Qty: 0 RF: 0 diphenoxylate-atropine 2.5-0.025 mg Tablet 1 tab PO BID Qty: 0 RF: 0 flaxseed oil 1,000 mg Capsule 1,000 mg PO QAM Qty: 0 RF: 0 dicyclomine 10 mg Capsule 10 mg PO BID Qty: 0 RF: 0 alpha lipoic acid 300 mg Capsule 300 mg PO TID Qty: 0 RF: 0 Tresiba FlexTouch U-100 100 unit/mL (3 mL) insulin pen 55 unit SUBCUT QAM RF: 0 Ozempic 0.25 mg or 0.5 mg(2 mg/1.5 mL) pen injector 0.5 mg SUBCUT We@09 RF: 0 levothyroxine 50 mcg tablet 50 mcg PO DAILYBB RF: 0 gabapentin 100 mg capsule 200 mg PO BID RF: 0 primidone 50 mg tablet 50 mg PO HS RF: 0 bupropion HCl 75 mg tablet 75 mg PO BID RF: 0 albuterol sulfate [Ventolin HFA] 90 mcg/actuation Hfa Aerosol Inhaler 2 puff INHALATION Q6H PRN (Reason: Shortness Of Breath Or Wheezing) Qty: 8.5 RF: 0 Discharge Orders: Discharge Order (Routine); Ordered 11/11/21 Ordered By: Rebekah Hoang/Other Patient Handouts: Managing Type 2 Diabetes, Special Foot Care for Diabetes, Managing Diabetes When You're Ill Admission Data Admit Date/Time: 11/09/21 16:33 Attending Provider: Rebekah Do I. Admit Provider: Nicole Augustin Primary Care Provider: Celia Boudreaux Other Providers: Nicole Augustin Other Interventions: Discharge Summary Assessment (RN) Last Done: 11/11/21 14:29
== END 2021-11-11 13:15 | disposition home or self-care (01) ==
LOC: ED 12:45 → 2S 16:33 → SUATTDRO 16:33 → INTOOBSV 16:33 → 2S 18:20

== ENCOUNTER 2022-03-27 13:29 | Observation (INO) ==
[2022-03-27] MEDS ORDERED: ACETAMINOPHEN 325 MG TAB PO STA (13:38)
[2022-03-27 14:36] LABS: Eosinophils # (auto) 0.11 K/uL (0-0.50); Eosinophils % (auto) 1.8 %; Hematocrit (blood only) 42.7 % (34.1-44.9); Hemoglobin 14.1 g/dl (12.0-16.0); Immature Granulocytes # (auto) 0.02 K/uL (0.00-0.02); Immature Granulocytes % (auto) 0.3 %; Lymphocytes # (auto) 0.24 K/uL (1.2-3.4); Lymphocytes % (auto) 3.9 %; Mean Corpuscular Hemoglobin 32.2 pg (25.0-34.0); Mean Corpuscular Volume 97.5 fL (80.0-100.0); Mean Platelet Volume 11.1 fL (9.4-12.3); Monocytes # (auto) 0.39 K/uL (0.24-0.82); Monocytes % (auto) 6.3 %; Neutrophils # (auto) 5.42 K/uL (1.4-6.5); Neutrophils % (auto) 87.7 %; Platelet Count 145 K/uL (130-400); RDW Coefficient of Variation 13.8 % (11.5-14.5); RDW Standard Deviation 49.1 fL (36.4-46.3); Red Blood Count 4.38 M/uL (3.93-5.22); White Blood Count 6.18 K/ul (4.8-10.8)
[2022-03-27 14:59] LABS: Albumin Globulin Ratio 1.1 (0.9-2); BUN Creatinine Ratio 16.8 (10-20); Bilirubin,Total 0.7 mg/dl (0.2-1.0); Calcium 9.4 mg/dl (8.5-10.1); Creatinine Clr Calc Pharmacy 29.5 ml/min; Est GFR (African American) 38.6 ml/min; Est GFR (Non-African American) 33.3 ml/min; Globulin 3.8 gm/dl (2.5-4.0); Potassium 4.2 mmol/L (3.5-5.1); Total Protein 7.8 gm/dl (6.0-8.3)
[2022-03-27] MEDS ORDERED: SODIUM CHLORIDE 0.9% 1000ML 1,000 ML IV ONE ×2 (15:28→17:31)
[2022-03-27] MEDS ORDERED: OPTIRAY 320 100ml IV ONE (16:25)
--- NOTE | 2022-03-27 16:57 | CT Scan Report ---
CT OF THE ABDOMEN AND PELVIS WITH CONTRAST CLINICAL HISTORY: fever, urinary symptoms COMPARISON STUDY: CT of the abdomen and pelvis October 13, 2017. TECHNIQUE: Following IV administration of 93 mL of Optiray, axial images of the abdomen and pelvis we re obtained from the lung bases to the proximal femurs. Images were reviewed in the axial, sagittal, and coronal planes. IV contrast was administered without complication. Automated exposure control wa s utilized for the study. A dose lowering technique was utilized adhering to the principles of ALARA . CT DOSE: 820.33 mGycm FINDINGS: Lung bases are unremarkable. No pneumatosis, free air or portal venous gas is present. Ther e are calcified granulomas within the spleen. There are no hepatic lesions. Adrenal glands are unrema rkable. 6 mm cystic lesion within the pancreatic head likely reflects a side branch IPMN. There is no significant pancreatic ductal dilatation. There is no biliary ductal dilatation. No peripancreatic f luid or stranding is noted. Tubular hypodensities within the pancreatic head remain unchanged. There is no hydronephrosis. Moderate bilateral renal cortical thinning is noted. Innumerable subcentimeter bilateral renal lesions are too small to characterize but favor cysts. There is no hydronephrosis. Th ere are no urinary calculi. Postoperative findings consistent with proctocolectomy with right lower q uadrant ileostomy are noted. Parastomal hernia is again noted. No bowel obstruction. A mildly enlarge d blas hepatis lymph node shown on axial image 116 of 426 measures 1.2 cm in short axis diameter. Th is is stable to slightly increased since prior exam. This is probably benign. No acute fracture or grace spicious lesion is identified within visualized skeletal structures. IMPRESSION: 1. No acute process within the abdomen or pelvis. 2. 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 No bowel obstruction. 3. Moderate bilateral renal cortical thinning with innumerable subcentimeter hypodense lesions. These are too small to characterize but favor cysts. No urinary calculi or hydronephrosis. ACT 112: Negative or not required by law. Electronically signed by: Estrada Salinas M.D. 03/27/2022 4:55 PM
[2022-03-27] MEDS ORDERED: cefTRIAXone SODIUM 2,000 MG/70 ML BAG IV STA (17:31)
[2022-03-27 17:54] LABS: Appearance Urine Clear (Clear); Bilirubin Urine Negative (Negative); Blood Urine Negative (Negative); Color Urine Yellow; Glucose Urine UA Negative (Negative); Ketones Urine Negative (Negative); Leukocyte Esterase Urine Negative (Negative); Nitrite Urine Negative (Negative); Protein Urine Negative (Negative); Specific Gravity Urine 1.015 (1.000-1.030); Urobilinogen Urine Negative (Negative); pH Urine 5.5 (4.5-7.5)
--- NOTE | 2022-03-27 18:53 | Electrocardiogram Report ---
Test Reason : Blood Pressure : / mmHG Vent. Rate : 094 BPM Atrial Rate : 094 BPM P-R Int : 158 ms QRS Dur : 084 ms QT Int : 336 ms P-R-T Axes : 065 008 046 degrees QTc Int : 420 ms Normal sinus rhythm Low voltage QRS Abnormal ECG When compared with ECG of 09-NOV-2021 13:37, No significant change was found Confirmed by Kishor Daniels ([id number]) on 03/27/2022 6:53:27 PM Referred By: Confirmed By:Mehrdad Daniels
[2022-03-27] MEDS ORDERED: ACETAMINOPHEN 1,000 MG/100 ML VIAL IV STA (19:29)
[2022-03-27] MEDS ORDERED: DOXYCYCLINE HYCLATE 100 MG in DEXTROSE 5% 100 ML IV STA (19:32)
--- NOTE | 2022-03-27 19:48 | Emergency Department Note ---
Impression & Plan Fever, Urinary urgency, Lymphopenia, Transaminitis ED Provider Note NAME: FELICIA BOB AGE: 77 SEX: F ARRIVES VIA: Walk-In INFORMANT: Patient, daughter ED PROVIDER(S): Yoni Rao MD CHIEF COMPLAINT: Fever, urinary symptoms, referred PLAN: Disposition: Home MEDICAL DECISION MAKING: The patient is a pleasant 77-year-old woman with a past medical history of COPD, CKD, prior COVID-19 infection of October 2021 who presents to the emergency department accompanied by her daughter referred from their PCPs office for fever and urinary urgency that has been ongoing for the past several days. She denies any blood in her urine. She reports she has had repeated sensation of pressure but unable to urinate much. She reports intermittent nausea but denies vomiting. She denies any diarrhea. She reports a chronic cough that is unchanged in the setting of her COPD and prior COVID infection. On arrival the patient is fatigued appearing but in no acute distress, afebrile to 101 received Tylenol in triage and vital signs otherwise stable. She appears clinically dry. Her abdomen is benign WBC, H/H and platelets within normal limits. Lymphopenia of 0.24 is noted. Platelets are also slightly lower than prior values. Creatinine 1.49 within prior range of values in the setting of CKD. AST and ALT are slightly elevated from prior at 173, respectively nonspecific. Total bilirubin within normal limits. UA without evidence of infection. Abdomen pelvis was performed and was negative for acute process. Upon reevaluation the patient was initially feeling improved after IV fluid hydration, APAP. It did take 6 hours for her urine analysis to result and so was treated empirically with ceftriaxone given her description of symptoms. Initial plan was to proceed with outpatient follow-up however she did acutely become rigors with return of fever to 101. Thus, given the persistence of her symptoms and no clear source we did agree to proceed with admission at this time. Given her lymphopenia and relative recent platelets and newly elevated LFTs tickborne illness testing was performed and is pending. Chest x-ray also ordered for completeness however she has been 97% on room air, they was negative for acute process. She was ordered for IV doxycycline empirically for possible Anaplasma. She denies any known tick exposures though does have a dog but is not aware of having found any ticks on them. Family and the patient agree with plan for admission. [facility] for [facility]. Triage Nursing notes reviewed and agree them. Prior medical records reviewed Vital Signs: reviewed and remarkable for fever, tachycardia. Differential diagnosis: Viral syndrome, otitis, pharyngitis, pneumonia, influenza, meningitis, urinary tract infection, sepsis, bacteremia, as well as other pathologies. ER treatment provided: See below. Diagnostics interpreted by me: ECG: Normal sinus rhythm, 94 bpm, no ectopy, no overt ST elevation or depression, QTC 420 Cardiac Monitoring: An order for continuous cardiac monitoring was placed and demonstrated normal sinus rhythm, 94 bpm, no ectopy Laboratory studies: See below Imaging studies: See below Consultation(s): [facility] for [facility]. HPI: The patient is a pleasant 77-year-old woman with a past medical history of COPD, CKD, prior COVID-19 infection of October 2021 who presents to the emergency department accompanied by her daughter referred from their PCPs office for fever and urinary urgency that has been ongoing for the past several days. She denies any blood in her urine. She reports she has had repeated sensation of pressure but unable to urinate much. She reports intermittent nausea but denies vomiting. She denies any diarrhea. She reports a chronic cough that is unchanged in the setting of her COPD and prior COVID infection. ROS: See above HPI for pertinent positives & negatives. A total of 10 systems reviewed and were otherwise negative. VITALS:See Below PHYSICAL EXAMINATION: GENERAL: Awake, alert, uncomfortable-appearing, in no distress HENT: Normocephalic, atraumatic. Oropharynx with dry mucous membranes and otherwise unremarkable. EYES: Normal conjunctiva. Sclera non-icteric. NECK: Supple. No nuchal rigidity. FROM. No JVD. RESPIRATORY: Clear to auscultation. CARDIAC: Tachyardic rate, normal rhythm. Extremities warm and well perfused. Pulses equal. ABDOMEN: Soft, non-distended. No tenderness to palpation. No rebound or guardi ng. No masses. RECTAL: Deferred. MUSCULOSKELETAL: Chest examination reveals no tenderness. The back is symmetrical on inspection without obvious abnormality. There is no CVA tenderness to palpation. No joint edema. LOWER EXTREMITIES: Calves are equal size bilaterally and non-tender. No edema. No discoloration. NEURO: Normal sensorium. No sensory or motor deficits noted. SKIN: No rash or jaundice noted. Yoni Rao MD Past Med/Surg History Medical History Asthma CKD (chronic kidney disease), stage III Depression Diabetes mellitus, type II Essential tremor Gout Hypertension Hypothyroidism Kidney disease Meningioma MGUS (monoclonal gammopathy of unknown significance) Psoriasis RLS (restless legs syndrome) Ulcerative colitis in remission Surgical History S/P colectomy S/P NICHELLE (total abdominal hysterectomy) Status post total knee replacement, left Family History Mother Myocardial infarction Sister Hypertension Social History Smoking Status: Never smoker Cigarettes Per Day: 20; Second Hand Exposure: No; Hx Alcohol Use: No Hx Substance Use: No Preferred Language: Citizen Of [place] Communication Ability: Effective Java Lead Developer Required: No Beliefs That Will Affect Care: None Current Living Situation: Family Current Living Situation Comment: lives at home with granddaughter Feels Safe at Home: Yes Assistive Devices: Glasses Allergies Allergies Allergy/AdvReac Type Severity Reaction Status Date / Time formaldehyde Allergy Unknown SKIN Verified 03/27/22 20:49 IRRTIATION AND PEELING Isothiazolinones Allergy Unknown SKIN Verified 03/27/22 20:49 IRRITATION AND PEELING quaternium 15 Allergy Unknown SKIN Verified 03/27/22 20:49 IRRITATION AND PEELING Home Meds Home Medications Medication Instructions Recorded Confirmed propranolol 10 mg tablet 10 mg PO BID ##0 02/15/07 03/27/22 fenofibrate nanocrystallized 145 145 mg PO QPM ##0 03/26/10 03/27/22 mg tablet montelukast 10 mg tablet 10 mg PO PM #0 tabs 02/10/12 03/27/22 omega 6-ekx-bom-fish oil 60 mg-90 1 cap PO BID #0 caps 02/10/12 03/27/22 mg-500 mg capsule (Fish Oil) pantoprazole 40 mg tablet,delayed 40 mg PO QAM ##0 02/10/12 03/27/22 release levocetirizine 5 mg tablet 5 mg PO PM ##0 09/12/15 03/27/22 allopurinol 100 mg tablet 200 mg PO QAM ##0 10/04/17 03/27/22 lisinopril 10 mg tablet 10 mg PO QPM ##0 10/04/17 03/27/22 rosuvastatin 40 mg tablet 40 mg PO QPM ##0 10/04/17 03/27/22 dicyclomine 10 mg capsule 10 mg PO BID ##0 11/26/17 03/27/22 diphenoxylate-atropine 2.5 1 tab PO BID #0 tabs 11/26/17 03/27/22 mg-0.025 mg tablet flaxseed oil 1,000 mg capsule 1,000 mg PO QAM ##0 11/26/17 03/27/22 bupropion HCl 75 mg tablet 75 mg PO BID 11/09/21 03/27/22 gabapentin 100 mg capsule 200 mg PO BID 11/09/21 03/27/22 insulin degludec 100 unit/mL (3 56 unit subcut QAM 11/09/21 03/27/22 mL) subcutaneous pen (Tresiba FlexTouch U-100 insulin) levothyroxine 50 mcg tablet 50 mcg PO DAILYBB 11/09/21 03/27/22 primidone 50 mg tablet 50 mg PO HS 11/09/21 03/27/22 acetaminophen 500 mg tablet 1,000 mg PO Q6H PRN Pain 03/27/22 03/27/22 (Tylenol Extra Strength) albuterol sulfate 2.5 mg/3 mL 2.5 mg inhalation DIRECTED PRN 03/27/22 03/27/22 (0.083 %) solution for nebulization Shortness Of Breath Or Wheezing cholestyramine (with sugar) 4 gram 4 g PO ACHS 03/27/22 03/27/22 powder for susp in a packet clobetasol 0.05 % topical foam 1 applic topical DAILY PRN flare up 03/27/22 03/27/22 fluticasone furoate 200 1 ea inhalation QAM 03/27/22 03/27/22 mcg-vilanterol 25 mcg/dose inhalation powder (Breo Ellipta) guaifenesin 1,200 mg tablet, 1,200 mg PO BID PRN Congestion 03/27/22 03/27/22 extended release 12 hr hydroxyzine HCl 25 mg tablet 12.5 - 25 mg PO Q6 PRN Itching 03/27/22 03/27/22 ipratropium 0.5 mg-albuterol 3 mg 3 ml inhalation Q6 PRN Shortness 03/27/22 03/27/22 (2.5 mg base)/3 mL nebulization Of Breath Or Wheezing soln Previous Rx's Medication Instructions Recorded albuterol sulfate 90 mcg/actuation 2 puff inhalation Q6H PRN 11/11/21 aerosol inhaler (Ventolin HFA) Shortness Of Breath Or Wheezing #8.5 grams benzonatate 100 mg capsule 100 mg PO TID PRN cough #20 caps 11/11/21 Results & Data (ED) Vital Signs Vital Signs - 24 hr 03/27/22 13:33 03/27/22 13:38 03/27/22 17:30 Temperature 37.2 C Temperature Source Temporal Artery Scan Pulse Rate 101 H Pulse Rate [Left Radial] 74 Pulse Rhythm Regular Pulse Rhythm [Left Radial] Regular Pulse Strength Normal Respiratory Rate 20 20 Respiratory Effort / Characteristics Non-Labored Spontaneous Non-Labored Respiratory Depth Normal Normal Respiratory Pattern Regular Blood Pressure 151/68 H Blood Pressure [Left Arm] 136/78 Blood Pressure Mean 95 Blood Pressure Mean [Left Arm] 97 Blood Pressure Position Sitting Pulse Oximetry 95 97 98 Oxygen Delivery Method Room Air Room Air Sepsis Recent Fever Within 48 Hours Yes Sepsis New/Unexplained Change in Mental Status No Sepsis Action Taken by Nursing No Action Required 03/27/22 19:00 Temperature 39.2 C H Temperature Source Oral Pulse Rate Pulse Rate [Left Radial] 114 H Pulse Rhythm Pulse Rhythm [Left Radial] Regular Pulse Strength Respiratory Rate 20 Respiratory Effort / Characteristics Non-Labored Respiratory Depth Normal Respiratory Pattern Blood Pressure Blood Pressure [Left Arm] Blood Pressure Mean Blood Pressure Mean [Left Arm] Blood Pressure Position Pulse Oximetry 97 Oxygen Delivery Method Room Air Sepsis Recent Fever Within 48 Hours Sepsis New/Unexplained Change in Mental Status Sepsis Action Taken by Nursing Laboratory Data Attestation: I reviewed the patient's lab results. Result diagrams: 03/27/22 14:21 03/27/22 14:21 Lab Results 03/27/22 03/27/22 03/27/22 Range/Units 14:21 14:21 14:21 WBC 6.18 (4.8-10.8) K/ul RBC 4.38 (3.93-5.22) M/uL Hgb 14.1 (12.0-16.0) g/dl Hct 42.7 (34.1-44.9) % MCV 97.5 (80.0-100.0) fL MCH 32.2 (25.0-34.0) pg MCHC 33.0 (32.0-36.0) g/dL RDW Std Deviation 49.1 H (36.4-46.3) fL RDW Coeff of Arabella 13.8 (11.5-14.5) % Plt Count 145 (130-400) K/uL MPV 11.1 (9.4-12.3) fL Immature Gran % (Auto) 0.3 % Neut % (Auto) 87.7 % Lymph % (Auto) 3.9 % Nicholas % (Auto) 6.3 % Eos % (Auto) 1.8 % Baso % (Auto) 0.0 % Neut # (Auto) 5.42 (1.4-6.5) K/uL Lymph # (Auto) 0.24 L (1.2-3.4) K/uL Nicholas # (Auto) 0.39 (0.24-0.82) K/uL Eos # (Auto) 0.11 (0-0.50) K/uL Baso # (Auto) 0.00 (0-0.2) K/uL Immature Gran # (Auto) 0.02 (0.00-0.02) K/uL Sodium 133 L (136-145) mmol/L Potassium 4.2 (3.5-5.1) mmol/L Chloride 100 (98-107) mmol/L Carbon Dioxide 26 (21-32) mmol/L Anion Gap 7 (3-11) BUN 25 H (6-23) mg/dl Creatinine 1.49 H (0.6-1.2) mg/dl Est Cr Clr Drug Dosing 29.5 ml/min Est GFR ( Amer) 38.6 ml/min Est GFR (Non-Af Amer) 33.3 ml/min BUN/Creatinine Ratio 16.8 (10-20) Glucose 87 (70-99(Fasting)) mg/dl POC Glucose (70-99) mg/dl Lactate (0.4-2.0) mmol/L Calcium 9.4 (8.5-10.1) mg/dl Total Bilirubin 0.7 (0.2-1.0) mg/dl AST 100 H (13-39) U/L ALT 73 H (7-52) U/L Alkaline Phosphatase 121 H (34-104) U/L Total Protein 7.8 (6.0-8.3) gm/dl Albumin 4.0 (3.4-5.0) gm/dl Globulin 3.8 (2.5-4.0) gm/dl Albumin/Globulin Ratio 1.1 (0.9-2) Lipase 59 (11-82) U/L Urine Color Urine Appearance (Clear) Urine pH (4.5-7.5) Ur Specific H[place]go (1.000-1.030) Urine Protein (Negative) Urine Glucose (UA) (Negative) Urine Ketones (Negative) Urine Blood (Negative) Urine Nitrite (Negative) Urine Bilirubin (Negative) Urine Urobilinogen (Negative) Ur Leukocyte Esterase (Negative) Anaplasma Smear See Comment Babesia Smear See Comment Lyme Disease IgG Ab (Negative) Lyme Disease IgM Ab (Negative) SARS-CoV-2 (PCR) 03/27/22 03/27/22 03/27/22 Range/Units 15:35 16:38 17:29 WBC (4.8-10.8) K/ul RBC (3.93-5.22) M/uL Hgb (12.0-16.0) g/dl Hct (34.1-44.9) % MCV (80.0-100.0) fL MCH (25.0-34.0) pg MCHC (32.0-36.0) g/dL RDW Std Deviation (36.4-46.3) fL RDW Coeff of Arabella (11.5-14.5) % Plt Count (130-400) K/uL MPV (9.4-12.3) fL Immature Gran % (Auto) % Neut % (Auto) % Lymph % (Auto) % Nicholas % (Auto) % Eos % (Auto) % Baso % (Auto) % Neut # (Auto) (1.4-6.5) K/uL Lymph # (Auto) (1.2-3.4) K/uL Nicholas # (Auto) (0.24-0.82) K/uL Eos # (Auto) (0-0.50) K/uL Baso # (Auto) (0-0.2) K/uL Immature Gran # (Auto) (0.00-0.02) K/uL Sodium (136-145) mmol/L Potassium (3.5-5.1) mmol/L Chloride (98-107) mmol/L Carbon Dioxide (21-32) mmol/L Anion Gap (3-11) BUN (6-23) mg/dl Creatinine (0.6-1.2) mg/dl Est Cr Clr Drug Dosing ml/min Est GFR ( Amer) ml/min Est GFR (Non-Af Amer) ml/min BUN/Creatinine Ratio (10-20) Glucose (70-99(Fasting)) mg/dl POC Glucose (70-99) mg/dl Lactate (0.4-2.0) mmol/L Calcium (8.5-10.1) mg/dl Total Bilirubin (0.2-1.0) mg/dl AST (13-39) U/L ALT (7-52) U/L Alkaline Phosphatase (34-104) U/L Total Protein (6.0-8.3) gm/dl Albumin (3.4-5.0) gm/dl Globulin (2.5-4.0) gm/dl Albumin/Globulin Ratio (0.9-2) Lipase (11-82) U/L Urine Color Yellow Urine Appearance Clear (Clear) Urine pH 5.5 (4.5-7.5) Ur Specific [place] 1.015 (1.000-1.030) Urine Protein Negative (Negative) Urine Glucose (UA) Negative (Negative) Urine Ketones Negative (Negative) Urine Blood Negative (Negative) Urine Nitrite Negative (Negative) Urine Bilirubin Negative (Negative) Urine Urobilinogen Negative (Negative) Ur Leukocyte Esterase Negative (Negative) Anaplasma Smear Babesia Smear Lyme Disease IgG Ab Negative (Negative) Lyme Disease IgM Ab Negative (Negative) SARS-CoV-2 (PCR) Cancelled 03/27/22 03/27/22 Range/Units 19:11 20:16 WBC (4.8-10.8) K/ul RBC (3.93-5.22) M/uL Hgb (12.0-16.0) g/dl Hct (34.1-44.9) % MCV (80.0-100.0) fL MCH (25.0-34.0) pg MCHC (32.0-36.0) g/dL RDW Std Deviation (36.4-46.3) fL RDW Coeff of Arabella (11.5-14.5) % Plt Count (130-400) K/uL MPV (9.4-12.3) fL Immature Gran % (Auto) % Neut % (Auto) % Lymph % (Auto) % Nicholas % (Auto) % Eos % (Auto) % Baso % (Auto) % Neut # (Auto) (1.4-6.5) K/uL Lymph # (Auto) (1.2-3.4) K/uL Nicholas # (Auto) (0.24-0.82) K/uL Eos # (Auto) (0-0.50) K/uL Baso # (Auto) (0-0.2) K/uL Immature Gran # (Auto) (0.00-0.02) K/uL Sodium (136-145) mmol/L Potassium (3.5-5.1) mmol/L Chloride (98-107) mmol/L Carbon Dioxide (21-32) mmol/L Anion Gap (3-11) BUN (6-23) mg/dl Creatinine (0.6-1.2) mg/dl Est Cr Clr Drug Dosing ml/min Est GFR ( Amer) ml/min Est GFR (Non-Af Amer) ml/min BUN/Creatinine Ratio (10-20) Glucose (70-99(Fasting)) mg/dl POC Glucose 72 (70-99) mg/dl Lactate 1.4 (0.4-2.0) mmol/L Calcium (8.5-10.1) mg/dl Total Bilirubin (0.2-1.0) mg/dl AST (13-39) U/L ALT (7-52) U/L Alkaline Phosphatase (34-104) U/L Total Protein (6.0-8.3) gm/dl Albumin (3.4-5.0) gm/dl Globulin (2.5-4.0) gm/dl Albumin/Globulin Ratio (0.9-2) Lipase (11-82) U/L Urine Color Urine Appearance (Clear) Urine pH (4.5-7.5) Ur Specific [place] (1.000-1.030) Urine Protein (Negative) Urine Glucose (UA) (Negative) Urine Ketones (Negative) Urine Blood (Negative) Urine Nitrite (Negative) Urine Bilirubin (Negative) Urine Urobilinogen (Negative) Ur Leukocyte Esterase (Negative) Anaplasma Smear Babesia Smear Lyme Disease IgG Ab (Negative) Lyme Disease IgM Ab (Negative) SARS-CoV-2 (PCR) Administered Medications Sodium Chloride (Nss 1000ml) 1,000 mls @ 100 mls/hr IV .Q10H JASON Stop: 04/26/22 21:42 Last Admin: 03/27/22 22:26 Dose: 100 mls/hr Documented By: SARAH Discontinued Medications Acetaminophen (Acetaminophen 325 Mg Tab) 650 mg PO NOW STA Stop: 03/27/22 13:39 Last Admin: 03/27/22 14:29 Dose: 650 mg Documented By: HUMBERTO Sodium Chloride (Nss 1000ml) 1,000 mls @ 999 mls/hr IV .Q1H1M ONE Stop: 03/27/22 16:28 Last Infusion: 03/27/22 16:56 Dose: 0 mls/hr Documented By: Admin: 03/27/22 15:54 Dose: 999 mls/hr Documented By: KENROY Sodium Chloride (Nss 1000ml) 1,000 mls @ 999 mls/hr IV .Q1H1M ONE Stop: 03/27/22 18:31 Last Infusion: 03/27/22 18:52 Dose: 0 mls/hr Documented By: Admin: 03/27/22 17:55 Dose: 999 mls/hr Documented By: KENROY Ceftriaxone Sodium (Rocephin) 2,000 mg in 70 mls @ 140 mls/hr IV NOW STA Stop: 03/27/22 18:00 Last Infusion: 03/27/22 18:51 Dose: 0 mls/hr Documented By: Admin: 03/27/22 17:55 Dose: 140 mls/hr Documented By: KENROY Acetaminophen (Ofirmev) 1,000 mg in 100 mls @ 400 mls/hr IV NOW STA Stop: 03/27/22 19:43 Last Infusion: 03/27/22 20:03 Dose: 0 mls/hr Documented By: Admin: 03/27/22 19:37 Dose: 400 mls/hr Documented By: KENROY Doxycycline Hyclate 100 mg/ (Dextrose) 110 mls @ 50 mls/hr IV NOW STA Stop: 03/27/22 21:43 Last Admin: 03/27/22 20:38 Dose: 50 mls/hr Documented By: KENROY Ioversol (Optiray 320 100ml) 93 ml IV ONCE ONE Stop: 03/27/22 16:26 Last Admin: 03/27/22 16:27 Dose: 93 ml Documented By: JUAN Imaging Data Radiologist's Impression: Abdomen/Pelvis CT 03/27/22 16:01 CT OF THE ABDOMEN AND PELVIS WITH CONTRAST CLINICAL HISTORY: fever, urinary symptoms COMPARISON STUDY: CT of the abdomen and pelvis October 13, 2017. TECHNIQUE: Following IV administration of 93 mL of Optiray, axial images of the abdomen and pelvis were obtained from the lung bases to the proximal femurs. Images were reviewed in the axial, sagittal, and coronal planes. IV contrast was administered without complication. Automated exposure control was utilized for the study. A dose lowering technique was utilized adhering to the principles of ALARA. CT DOSE: 820.33 mGycm FINDINGS: Lung bases are unremarkable. No pneumatosis, free air or portal venous gas is present. There are calcified granulomas within the spleen. There are no hepatic lesions. Adrenal glands are unremarkable. 6 mm cystic lesion within the pancreatic head likely reflects a side branch IPMN. There is no significant pancreatic ductal dilatation. There is no biliary ductal dilatation. No peripancreatic fluid or stranding is noted. Tubular hypodensities within the pancreatic head remain unchanged. There is no hydronephrosis. Moderate bilateral renal cortical thinning is noted. Innumerable subcentimeter bilateral renal lesions are too small to characterize but favor cysts. There is no hydronephrosis. There are no urinary calculi. Postoperative findings consistent with proctocolectomy with right lower quadrant ileostomy are noted. Parastomal hernia is again noted. No bowel obstruction. A mildly enlarged blas hepatis lymph node shown on axial image 116 of 426 measures 1.2 cm in short axis diameter. This is stable to slightly increased since prior exam. This is probably benign. No acute fracture or suspicious lesion is identified within visualized skeletal structures. IMPRESSION: 1. No acute process within the abdomen or pelvis. 2. 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 No bowel obstruction. 3. Moderate bilateral renal cortical thinning with innumerable subcentimeter hyp odense lesions. These are too small to characterize but favor cysts. No urinary calculi or hydronephrosis. ACT 112: Negative or not required by law. Electronically signed by: Estrada Salinas M.D. 03/27/2022 4:55 PM Chest X-Ray 03/27/22 19:57 XR chest 1V portable HISTORY: fever COMPARISON: Chest 12/26/2021. FINDINGS: No pneumothorax. No pleural effusions. There is mild interstitial thickening at the lung bases, unchanged. The heart is normal in size. No new focal lung consolidations to suggest pneumonia. No evidence for pulmonary edema. Stable eventration of the right hemidiaphragm. IMPRESSION: No significant change compared to the prior study. No acute process. ACT 112: Negative or not required by law. Electronically signed by: Thad Henry M.D. 03/27/2022 8:38 PM Discharge Plan Visit Data Chief Complaint: Urinary Symptoms Stated Complaint: UNABLE TO URINE, FEVER, HIGH BP ED Provider: Yoni Rao Discharge Problem: Fever, Urinary urgency, Lymphopenia, Transaminitis Patient Disposition: Admitted As Inpatient Discharge Instructions Interventions: ED Discharge Assessment Last Done: 03/27/22 21:18
[2022-03-27 20:34] LABS: Lyme Ab IgG w/WB Rflx Negative (Negative); Lyme Ab IgM w/WB Rflx Negative (Negative)
--- NOTE | 2022-03-27 20:39 | XRay Report ---
XR chest 1V portable HISTORY: fever COMPARISON: Chest 12/26/2021. FINDINGS: No pneumothorax. No pleural effusions. There is mild interstitial thickening at the lung ba ses, unchanged. The heart is normal in size. No new focal lung consolidations to suggest pneumonia. N o evidence for pulmonary edema. Stable eventration of the right hemidiaphragm. IMPRESSION: No significant change compared to the prior study. No acute process. ACT 112: Negative or not required by law. Electronically signed by: Thad Henry M.D. 03/27/2022 8:38 PM
[2022-03-27] MEDS ORDERED: NITROGLYCERIN SL 0.4 MG/TAB TAB SL PRN (21:43)
[2022-03-27] MEDS ORDERED: guaiFENesin 600 MG TABCR PO PRN (21:43)
[2022-03-27] MEDS ORDERED: ACETAMINOPHEN 325 MG TAB PO PRN (21:43)
[2022-03-27] MEDS ORDERED: BENZONATATE 100 MG CAPSULE PO PRN (21:43)
[2022-03-27] MEDS ORDERED: ALBUT/IPRATROP 3MG/0.5MG NEB 3 ML VIAL INH PRN (21:43)
[2022-03-27] MEDS ORDERED: ONDANSETRON INJ 2 MG/ML 2 ML VIAL IV PRN (21:43)
[2022-03-27] MEDS ORDERED: ALBUTEROL HFA 8 GM INHALER INH PRN (21:43)
[2022-03-27] MEDS ORDERED: hydrOXYzine HCl 25 MG TAB PO PRN (21:43)
[2022-03-27] MEDS ORDERED: CLOBETASOL 0.05% TOP PRN (21:43)
[2022-03-27] MEDS ORDERED: hydrALAZINE HCL 20 MG/ML VIAL IV PRN (21:54)
[2022-03-27] MEDS ORDERED: GLUCOSE 40% GEL 15 GM TUBE PO PRN (22:15)
[2022-03-27] MEDS ORDERED: GLUCOSE 10 TAB/TUBE PO PRN (22:15)
[2022-03-27] MEDS ORDERED: CARBOHYDRATES FOR HYPOGLYCEMIA PO PRN (22:15)
[2022-03-27] MEDS ORDERED: GLUCAGON FOR INJ 1 MG VIAL IM PRN (22:15)
[2022-03-27] MEDS ORDERED: DEXTROSE 50% 50 ML SYRINGE IV PRN (22:15)
[2022-03-27] MEDS: SODIUM CHLORIDE 0.9% 1000ML 1,000 ML IV SCH (22:26)
[2022-03-27] MEDS: buPROPion HCl 75 MG TABLET PO SCH (22:38)
[2022-03-27] MEDS: CETIRIZINE HCL 10 MG TABLET PO SCH (22:39)
[2022-03-27] MEDS: DICYCLOMINE HCL 10 MG CAP PO SCH (22:40)
[2022-03-27] MEDS: FENOFIBRATE NANOCRYSTALLIZED 145 MG TABLET PO SCH (22:40)
[2022-03-27] MEDS: GABAPENTIN 100 MG CAP PO SCH (22:41)
[2022-03-27] MEDS: HEPARIN SOD 5,000 UNIT/0.5 ML VIAL SQ SCH (22:41)
[2022-03-27] MEDS: PRIMIDONE 50 MG TAB PO SCH (22:42)
[2022-03-27] MEDS: ROSUVASTATIN CALCIUM 20 MG TAB PO SCH (22:42)
[2022-03-27] MEDS: PROPRANOLOL HCL 10 MG TAB PO SCH (22:42)
[2022-03-27] MEDS: MONTELUKAST SODIUM 10 MG TABLET PO SCH (22:42)
[2022-03-27] MEDS: CHOLESTYRAMINE LIGHT 4 GM PKT PO SCH (22:50)
[2022-03-27] MEDS: INSULIN ASPART PER UNIT SC SCH (22:50)
--- NOTE | 2022-03-28 00:51 | History and Physical Report ---
DATE OF ADMISSION: 03/27/2022. CHIEF COMPLAINT: Fevers, urinary symptoms. HISTORY OF PRESENT ILLNESS: This is a 77-year-old female with past medical history significant for type 2 diabetes, diabetic peripheral vascular disease, diabetic neuropathy, chronic kidney disease stage III, hyperlipidemia, subclinical hypothyroidism, bronchiectasis with chronic rhinitis, moderate persistent asthma without complication, GERD, vitamin D deficiency, ulcerative colitis, restless legs syndrome, gout arthropathy, rosacea, essential tremor,MUGS, psoriasis, depression, history of tobacco abuse, history of long COVID, who presents with a pressure feeling in the bladder and not able to micturate for last few days.Urine culture as outpatient was negative. As symptoms were not getting better, she came to the ER.In ER she was having rigors and chills and spiked fever.Was empirically given Rocephin, but urinalysis came back negative. There is no tick bite and she does not go to the [place], though she has a dog. CT abdomen and pelvis and CXR was okay. Empirically started also on doxycycline for possible tick-borne illness, but so far anaplasmosis smear and Lyme disease came back negative. COVID came back negative. Currently, resting comfortably, hemodynamically stable. Denies any headache. No blurred visions, no earache, no runny nose, no sore throat, no cough, no difficulty swallowing. Appetite was poor for the last few days. No chest pain, no shortness of breath, no nausea, no vomiting, no abdominal pain, no diarrhea or constipation. No swelling in the legs. Lately, last few days, she is somewhat wobbly while ambulating because of feeling weak and fatigued. Recently, she also saw ID on 03/25/2022. She has had a cough for 2 years and a respiratory culture was done in December 2021, has grown MAC and ID has recommended to treat with azithromycin, rifampin, and ethambutol. The patient states she has not started those medications yet. ALLERGIES: FORMALDEHYDE, ISOTHIAZOLINONES, QUATERNIUM. PAST MEDICAL HISTORY: As mentioned above. PAST SURGICAL HISTORY: Left knee replacement, bunion correction of the right foot, EGD with biopsy, right middle finger trigger finger release, nasal sinus endoscopy, colectomy with ileostomy for ulcerative colitis in 1998, removal of oviducts, appendectomy, cataract removal, stereotactic and extradural navigation, total hysterectomy. MEDICATIONS: The patient is on Tylenol Extra Strength 1000 mg p.o. q. 6 hours p.r.n., albuterol nebulization p.r.n., albuterol 2 puffs inhalation q. 6 hours p.r.n.,allopurinol 200 mg p.o. a.m., benzoate 100 mg p.o. t.i.d. p.r.n., bupropion 75 mg p.o. b.i.d., cholestyramine 4 g p.o. a.c. and at bedtime, Bentyl 10 mg p.o. b.i.d., fenofibrate 145 mg p.o. daily, Breo Ellipta one inhalation daily, gabapentin 200 mg p.o. b.i.d., guaifenesin 200 mg p.o. b.i.d. p.r.n., hydroxyzine 12.5 to 25 mg p.o. q. 6 hours p.r.n., DuoNebs q. 6 hours p.r.n., levocetirizine 5 mg p.o. p.m., levothyroxine 50 mcg p.o. daily, lisinopril 10 mg p.o. p.m., montelukast 10 mg p.o. p.m., omega fish oil 1 capsule p.o. b.i.d., Protonix 40 mg p.o. a.m., primidone 50 mg p.o. at bedtime, propranolol 10 mg p.o. b.i.d., lovastatin 40 mg p.o. at bedtime, Tresiba 56 units subcutaneously a.m. FAMILY HISTORY: Significant for mother has COPD, MIs; father had mining accident, sudden ; sister has hypertension. SOCIAL HISTORY: , former smoker, quit in 1991, smoked average 1 pack a day for 30 years. No alcohol use. No drug use. REVIEW OF SYSTEMS: As per HPI. Rest of the review of systems is negative. PHYSICAL EXAMINATION: GENERAL: The patient is obese, not in acute distress. VITAL SIGNS: Temperature T-max 39.2, pulse 78, respiratory rate 14, blood pressure 133/74, oxygen 98% on room air. HEENT: Pupils equal, round and reactive to light. Oral mucosa moist. NECK: No JVD, neck masses. CARDIOVASCULAR: S1 and S2 heard. Regular rate and rhythm. No murmur, no gallop. RESPIRATORY SYSTEM: Normal AP diameter. No accessory muscle use. No wheezing, no crackles. ABDOMEN: Soft, bowel sounds present, nontender, no distention. CENTRAL NERVOUS SYSTEM: Cranial nerves II-XII grossly intact, nonfocal. EXTREMITIES: No edema, no erythema. LABORATORY DATA: WBC 6.1, hemoglobin 14.1, hematocrit 42.7, platelets 145. Sodium 133, potassium 4.2, chloride 100, bicarbonate 26, BUN 25, creatinine 1.49, serum glucose 87. Lactate 1.4, calcium 9.4, total bilirubin 0.7, AST 1000, ALT 73, alkaline phosphatase 121, lipase 59. Urinalysis negative. Anaplasmosis smear negative, Babesia smear unremarkable. Lyme screen negative. SARS-CoV-2 rapid test negative. IMAGING DATA: Chest x-ray, no acute process. CT of the abdomen and pelvis with contrast, no acute process. No bowel obstruction. EKG: Normal sinus rhythm at a rate of 94, no significant change was found. ASSESSMENT AND PLAN: This 77-year-old female presents with ongoing bladder pressure. The patient was worried about urinary tract infection and she had a fever spike in the ER of unknown origin. 1. Fever of unknown origin: The patient had difficulty urinating at home, but able to micturate in the ER. Urinalysis negative. Urine culture done as outpatient also was negative. CT abdomen and pelvis was unremarkable. Chest x- ray was unremarkable. Lyme screen was negative. Anaplasmosis smear and Babesia smear are unremarkable. Mild elevation of AST, ALT, and alkaline phosphatase. Blood cultures obtained in the ER. Empirically started on doxycycline and Rocephin. Will follow the cultures. IV fluids and closely monitor. Will recheck Covid with PCR. 2. Acute kidney injury on chronic kidney disease stage III: Baseline creatinine around 1.3. Avoid nephrotoxic agents. Will follow the blood pressure. Will follow the kidney function. 3. Hypertension: Holding lisinopril. Continue propranolol. Placed on IV hydralazine p.r.n. 4. Hypothyroidism: Continue Synthroid. 5. Diabetes: Continue her Tresiba, insulin sliding scale, diabetic diet. Will follow the blood sugars. 6. Gout: Continue allopurinol. 7. Depression: On bupropion. 8. Hyperlipidemia: On statin. 9. Bronchiectasis without complication and moderate persistent asthma: Continue her home inhalers, currently stable. 10. History of ulcerative colitis: Status post colectomy with ileostomy. 11. Essential tremor: On propranolol. 12. Gastroesophageal reflux disease: On omeprazole. 13.MAC. TO start on meds recommended by ID 14. Deep venous thrombosis prophylaxis: Placed her on sequential compression devices and heparin subcutaneous. DISPOSITION: Closely monitor in the med tele. PT/OT prior to discharge. Social service to help with discharge planning. Job ID: [id number] [id number]
[2022-03-28] MEDS: CHOLESTYRAMINE LIGHT 4 GM PKT PO SCH ×4 (04:25→22:49)
[2022-03-28] MEDS: LEVOTHYROXINE SODIUM 50 MCG TABLET PO SCH (05:57)
--- NOTE | 2022-03-28 07:55 | Communication Note ---
Date of Service: March 28, 2022 The patient is a 77 year old woman with pmh DM2, PVD, CKD, HLD, subclinical hypothyroidism, bronchiectasis with chronic rhinitis, asthma, GERD, UC, essentia l tremor, MGUS, psoriasis, depression who presented with difficulty urinating for last few days and subsequently had rigors and chills in ED on presentation with fever. UA negative, CXR unremarkable, blood cultures drawn, empirically started on doxycycline and ceftriaxone for fever of unknown origin. Of note, was recently prescribed MAC treatment with azithromycin, rifampin, ethambutol which has only just been started on this presentation. The patient is feeling much better this morning. She is not having any issues with urination and denies any further fevers or chills. She reports her cough is unchanged, denies n/v/d, abdominal pain, dysuria, chest pain, shortness of breath. PHYSICAL EXAMINATION: GENERAL: The patient is obese, not in acute distress. HEENT: Pupils equal, round and reactive to light. Oral mucosa moist. NECK: No JVD, neck masses. CARDIOVASCULAR: S1 and S2 heard. Regular rate and rhythm. No murmur, no gallop. RESPIRATORY SYSTEM: Normal AP diameter. No accessory muscle use. No wheezing, no crackles. ABDOMEN: Soft, bowel sounds present, nontender, no distention. colostomy in RLQ without tenderness or erythema, brown stool in colostomy bag CENTRAL NERVOUS SYSTEM: Cranial nerves II-XII grossly intact, nonfocal. EXTREMITIES: No edema, no erythema. Assessment: Fever of unknown origin - history points to urinary source but UA negative for infection - CXR unrevealing, blood cultures drawn - of note, has not started treatment for MAC prior to presentation for which she was prescribed 03/25/2022 after positive sputum culture following with ID - empirically started on ceftriaxone and doxycycline as well - concern for possible tick borne illness as well - work up sent - will monitor for response on the above - trend fever - will give empiric course of 5-7 days of antibiotics - refer to H and P for further details DVT ppx: heparin SC Full Code Lawson Sorto MD [facility]
[2022-03-28 08:01] LABS: Eosinophils # (auto) 0.11 K/uL (0-0.50); Eosinophils % (auto) 2.7 %; Hematocrit (blood only) 35.6 % (34.1-44.9); Immature Granulocytes # (auto) 0.01 K/uL (0.00-0.02); Immature Granulocytes % (auto) 0.2 %; Lymphocytes # (auto) 0.29 K/uL (1.2-3.4); Lymphocytes % (auto) 7.1 %; Mean Platelet Volume 11.1 fL (9.4-12.3); Monocytes # (auto) 0.38 K/uL (0.24-0.82); Monocytes % (auto) 9.4 %; Neutrophils # (auto) 3.27 K/uL (1.4-6.5); Neutrophils % (auto) 80.6 %; Platelet Count 112 K/uL (130-400); White Blood Count 4.06 K/ul (4.8-10.8)
[2022-03-28 08:16] LABS: Estimated Average Glucose 186 mg/dl; Hemoglobin A1C 8.1 % (4.5-5.6)
[2022-03-28 08:20] LABS: Mean Corpuscular Hemoglobin 32.6 pg (25.0-34.0); Mean Corpuscular Hgb Conc 33.7 g/dL (32.0-36.0); Mean Corpuscular Volume 96.7 fL (80.0-100.0); RDW Coefficient of Variation 13.7 % (11.5-14.5); RDW Standard Deviation 48.5 fL (36.4-46.3); Red Blood Count 3.68 M/uL (3.93-5.22)
[2022-03-28 08:27] LABS: BUN Creatinine Ratio 13.7 (10-20); Calcium 8.5 mg/dl (8.5-10.1); Creatinine Clr Calc Pharmacy 37.5 ml/min; Est GFR (African American) 51.7 ml/min; Est GFR (Non-African American) 44.6 ml/min; Magnesium 1.2 mg/dl (1.7-2.4); Potassium 3.6 mmol/L (3.5-5.1)
[2022-03-28] MEDS: INSULIN ASPART PER UNIT SC SCH ×4 (08:28→21:55)
[2022-03-28] MEDS: PANTOprazole 40 MG TAB PO SCH (08:29)
[2022-03-28] MEDS: GABAPENTIN 100 MG CAP PO SCH ×2 (08:29→20:22)
[2022-03-28] MEDS: allopurinoL 100 MG TAB PO SCH (08:29)
[2022-03-28] MEDS: PROPRANOLOL HCL 10 MG TAB PO SCH ×2 (08:29→20:23)
[2022-03-28] MEDS: HEPARIN SOD 5,000 UNIT/0.5 ML VIAL SQ SCH ×2 (08:30→20:23)
[2022-03-28] MEDS: DICYCLOMINE HCL 10 MG CAP PO SCH ×2 (08:30→20:22)
[2022-03-28] MEDS: buPROPion HCl 75 MG TABLET PO SCH ×2 (08:30→20:21)
[2022-03-28] MEDS: FLUTICASONE/VILANTEROL 200/25MCG 14 PUFFS/INHALER INH SCH (08:30)
[2022-03-28] MEDS: SODIUM CHLORIDE 0.9% 1000ML 1,000 ML IV SCH ×2 (08:53→17:39)
[2022-03-28] MEDS: DOXYCYCLINE HYCLATE 100 MG in DEXTROSE 5% 100 ML IV SCH ×2 (08:54→20:29)
[2022-03-28] MEDS: LANTUS PER UNIT CHARGE SQ SCH (09:35)
[2022-03-28 10:56] LABS: Albumin Level 3.3 gm/dl (3.4-5.0); Bilirubin Direct 0.2 mg/dl (0-0.2); Bilirubin,Total 0.6 mg/dl (0.2-1.0); Total Protein 6.3 gm/dl (6.0-8.3)
[2022-03-28] MEDS: MAGNESIUM SULFATE / D5W 1 GM/100 ML BAG IV SCH ×4 (11:19→17:38)
[2022-03-28 15:01] LABS: Influenza A virus by PCR Negative (Neg); Influenza B virus by PCR Negative (Neg); RSV by PCR Negative (Neg); SARS CoV2 RNA(COVID-19) InHosp NEGATIVE (Negative)
--- NOTE | 2022-03-28 15:04 | CT Scan Report ---
CT chest diagnostic wo con CT DOSE: 368.66 mGycm HISTORY: Shortness of breath. History of Covid pneumonia. h/o of MAC TECHNIQUE: Multiaxial CT images of the chest were performed without contrast. A dose lowering techni que was utilized adhering to the principles of ALARA. COMPARISON: Chest CTA 10/13/2017. FINDINGS: No pneumothorax. No pleural effusions. Mild biapical pleural-parenchymal scarring remains u nchanged. There is mild respiratory motion artifact. The central airways appear patent. Punctate calc ified granuloma within the base of the left lower lobe. There is a 4 mm nodule within the left lower lobe on image 152. A few bibasilar linear densities favor subsegmental atelectasis. Increase in size in the 1 cm irregular right lower lobe pulmonary nodule on image 111. This abuts the pleural surface. There is a subtle irregular nodule within the right lower lobe on image 123 measuring 1 cm. Subtle f ocal groundglass densities within the left lung apex on images 44 and 58 measuring 1.0 and 1.6 cm, re spectively. Mild interstitial thickening which is likely chronic. Mosaic attenuation within the lungs suggestive of mild air trapping. No suspicious lytic or blastic osseous lesions. The liver and adren al glands unremarkable. Multiple punctate calcified granulomas within the spleen. Normal esophagus. N o mediastinal or hilar lymphadenopathy. The heart is top normal in size. No pericardial effusion. IMPRESSION: 1. Interval increase in size in the 1 cm irregular right lower lobe pulmonary nodule which abuts the pleural surface. Therefore, this is highly suspicious for a primary bronchogenic malignancy. Pulmonar y consultation recommended for further evaluation. 2. There is also suggestion of a subtle irregular 1 cm nodule within the right lower lobe. [address] follow-up recommended to ensure stability. 3. There are 2 subtle focal groundglass densities within the left lung apex with the largest measurin g 1.6 cm. These also require 6 month follow-up to ensure stability. 4. Mild mosaic attenuation within the lungs suggestive of air-trapping. 5. No focal lung consolidations to suggest pneumonia. ACT 112: Positive. There are findings on this exam that require communication between the performing entity and the patient following Patient Test Result Information Act ([place] Act 112) guidelines. Electronically signed by: Thad Henry M.D. 03/28/2022 3:02 PM
[2022-03-28] MEDS ORDERED: cefTRIAXone SODIUM 2,000 MG in DEXTROSE 5% 50 ML IV SCH (18:00)
[2022-03-28] MEDS: PRIMIDONE 50 MG TAB PO SCH (20:21)
[2022-03-28] MEDS: FENOFIBRATE NANOCRYSTALLIZED 145 MG TABLET PO SCH (20:22)
[2022-03-28] MEDS: CETIRIZINE HCL 10 MG TABLET PO SCH (20:22)
[2022-03-28] MEDS: ROSUVASTATIN CALCIUM 20 MG TAB PO SCH (20:23)
[2022-03-28] MEDS: MONTELUKAST SODIUM 10 MG TABLET PO SCH (20:23)
[2022-03-29] MEDS: LEVOTHYROXINE SODIUM 50 MCG TABLET PO SCH (05:27)
[2022-03-29] MEDS: CHOLESTYRAMINE LIGHT 4 GM PKT PO SCH ×2 (05:27→08:19)
[2022-03-29 06:55] LABS: Hematocrit (blood only) 38.7 % (34.1-44.9); Hemoglobin 12.7 g/dl (12.0-16.0); Mean Platelet Volume 10.7 fL (9.4-12.3); Platelet Count 113 K/uL (130-400); White Blood Count 2.62 K/ul (4.8-10.8)
[2022-03-29 07:10] LABS: INR 1.1 (0.9-1.1); Prothrombin Time 11.9 Seconds (9.0-12.0)
[2022-03-29 07:21] LABS: Albumin Globulin Ratio 1.1 (0.9-2); Albumin Level 3.5 gm/dl (3.4-5.0); BUN Creatinine Ratio 15.6 (10-20); Bilirubin,Total 0.6 mg/dl (0.2-1.0); Calcium 9.1 mg/dl (8.5-10.1); Creatinine Clr Calc Pharmacy 34.1 ml/min; Est GFR (African American) 46.4 ml/min; Globulin 3.3 gm/dl (2.5-4.0); Magnesium 1.8 mg/dl (1.7-2.4); Phosphorus 2.9 mg/dl (2.5-4.9); Potassium 3.5 mmol/L (3.5-5.1); Total Protein 6.8 gm/dl (6.0-8.3)
[2022-03-29 07:38] LABS: Basophils # (auto) 0.01 K/uL (0-0.2); Basophils % (auto) 0.4 %; Eosinophils # (auto) 0.12 K/uL (0-0.50); Eosinophils % (auto) 4.6 %; Immature Granulocytes # (auto) 0.01 K/uL (0.00-0.02); Immature Granulocytes % (auto) 0.4 %; Lymphocytes # (auto) 0.48 K/uL (1.2-3.4); Lymphocytes % (auto) 18.3 %; Mean Corpuscular Hemoglobin 32.3 pg (25.0-34.0); Mean Corpuscular Hgb Conc 32.8 g/dL (32.0-36.0); Mean Corpuscular Volume 98.5 fL (80.0-100.0); Monocytes # (auto) 0.48 K/uL (0.24-0.82); Monocytes % (auto) 18.3 %; Neutrophils # (auto) 1.52 K/uL (1.4-6.5); RDW Coefficient of Variation 13.8 % (11.5-14.5); RDW Standard Deviation 49.8 fL (36.4-46.3); Red Blood Count 3.93 M/uL (3.93-5.22); Tear Drop Cells 1+
--- NOTE | 2022-03-29 08:17 | Hospitalist Progress Note ---
Date of Service March 29, 2022 Assessment & Plan (1) Fever: Plan: - history points to urinary source but UA negative for infection - CXR unrevealing, blood cultures drawn - of note, has not started treatment for MAC prior to presentation for which she was prescribed 03/25/2022 after positive sputum culture following with ID - empirically started on ceftriaxone and doxycycline as well - concern for possible tick borne illness as well - work up sent but negative - will monitor for response on the above - trend fever - will give empiric course of 5-7 days of antibiotics - afebrile >24 hours (2) Thrombocytopenia: Plan: - new finding - no signs of bleeding - could be in setting of tick borne illness - CT-AP without comment on liver - HIV and hepatitis panel sent - HIT in differential but stable from yesterday so less likely - RUQ US - PLT stable - will monitor for now - outpatient follow up most likely after treatment (3) Leukopenia: Plan: - unclear etiology - ANC >1500 - right lung pulmonary nodule with increase in size - will need outpatient follow up with PCP and pulm (4) Transaminitis: Plan: - has history of the same - could be NAFLD - stable - RUQ US Plan DVT ppx: heparin SC Full Code Dispo: likely discharge home today 03/29/2022 Lawson Sorto MD Hospital Medicine Admission and Anticipated Discharge Date Admission Date: March 27, 2022 Subjective The patient is a 77 year old woman with pmh DM2, PVD, CKD, HLD, subclinical hypothyroidism, bronchiectasis with chronic rhinitis, asthma, GERD, UC, essential tremor, MGUS, psoriasis, depression who presented with difficulty urinating for last few days and subsequently had rigors and chills in ED on presentation with fever. UA negative, CXR unremarkable, blood cultures drawn, empirically started on doxycycline and ceftriaxone for fever of unknown origin. Of note, was recently prescribed MAC treatment with azithromycin, rifampin, ethambutol which has only just been started on this presentation. The patient is feeling much better this morning. She is not having any issues with urination and denies any further fevers or chills. She reports her cough is unchanged, denies n/v/d, abdominal pain, dysuria, chest pain, shortness of breath. Review of Systems Review of Systems: All systems reviewed & are unremarkable except as noted in Subjective Results & Data Results & Data ([facility]) Vital Signs (Past 12 Hours) Vital Signs Temp Pulse Pulse Resp BP Pulse Ox O2 Del Method 03/29/22 07:36 76 03/29/22 06:41 36.4 C L 74 18 167/71 H 94 Room Air 03/29/22 03:30 36.8 C 69 17 168/73 H 92 Room Air 03/28/22 23:14 80 03/28/22 22:45 36.9 C 78 18 130/56 L 97 Room Air Laboratory Results Short CBC 03/29/22 Range/Units 06:26 WBC 2.62 L (4.8-10.8) K/ul Hgb 12.7 (12.0-16.0) g/dl Hct 38.7 (34.1-44.9) % Plt Count 113 L (130-400) K/uL BMP 03/28/22 03/29/22 07:34 06:26 Sodium 134 L 138 Potassium 3.6 3.5 Chloride 103 105 Carbon Dioxide 23 24 BUN 16 20 Creatinine 1.17 D 1.28 H Glucose 89 126 H Calcium 8.5 9.1 Liver Function 03/28/22 03/29/22 Range/Units 07:34 06:26 Total Bilirubin 0.6 0.6 (0.2-1.0) mg/dl Direct Bilirubin 0.2 (0-0.2) mg/dl AST 85 H 66 H (13-39) U/L ALT 68 H 60 H (7-52) U/L Alkaline Phosphatase 114 H 153 H (34-104) U/L Albumin 3.3 L 3.5 (3.4-5.0) gm/dl Medications Administered Current Inpatient Medications Acetaminophen (Acetaminophen 325 Mg Tab) 650 mg PO Q4H PRN PRN Reason: Pain or Fever Stop: 04/26/22 21:42 Albuterol (Albuterol Hfa 8 Gm Inhaler) 2 puffs INH Q6H PRN PRN Reason: Shortness Of Breath Or Wheezin Stop: 04/26/22 21:42 Albuterol (Albut/Ipratrop 3mg/0.5mg Neb 3 Ml Vial) 3 ml INH Q6 PRN; Protocol PRN Reason: Shortness Of Breath Or Wheezing Stop: 04/26/22 21:42 Allopurinol (Allopurinol 100 Mg Tab) 200 mg PO QAM JASON Stop: 04/27/22 08:59 Last Admin: 03/28/22 08:29 Dose: 200 mg Benzonatate (Benzonatate 100 Mg Capsule) 100 mg PO TID PRN PRN Reason: cough Stop: 04/26/22 21:42 Bupropion HCl (Bupropion Hcl 75 Mg Tablet) 75 mg PO BID JASON Stop: 04/26/22 21:42 Last Admin: 03/28/22 20:21 Dose: 75 mg Cetirizine HCl (Cetirizine Hcl 10 Mg Tablet) 5 mg PO PM JASON Stop: 04/26/22 21:42 Last Admin: 03/28/22 20:22 Dose: 5 mg Cholestyramine Resin (Cholestyramine Light 4 Gm Pkt) 4 gm PO QID@0500,1000,1500,2200 JASON Stop: 04/26/22 22:59 Last Admin: 03/29/22 05:27 Dose: 4 gm Dextrose (Dextrose 50% 50 Ml Syringe) 25 - 50 ml IV UD PRN; Protocol PRN Reason: Hypoglycemia Protocol Stop: 04/26/22 22:14 Dicyclomine HCl (Dicyclomine Hcl 10 Mg Cap) 10 mg PO BID JASON Stop: 04/26/22 21:42 Last Admin: 03/28/22 20:22 Dose: 10 mg Fenofibrate (Fenofibrate Nanocrystallized 145 Mg Tablet) 145 mg PO QPM JASON Stop: 04/26/22 21:42 Last Admin: 03/28/22 20:22 Dose: 145 mg Fluticasone/Vilanterol (Fluticasone/Vilanterol 200/25mcg 14 Puffs/Inhaler) 1 puffs INH QAM JASON Stop: 04/27/22 08:59 Last Admin: 03/28/22 08:30 Dose: 1 puffs Gabapentin (Gabapentin 100 Mg Cap) 200 mg PO BID JASON Stop: 04/26/22 21:42 Last Admin: 03/28/22 20:22 Dose: 200 mg Glucagon (Glucagon For Inj 1 Mg Vial) 1 mg IM UD PRN; Protocol PRN Reason: Hypoglycemia Protocol Stop: 04/26/22 22:14 Glucose (Glucose 40% Gel 15 Gm Tube) 15 - 30 gm PO UD PRN; Protocol PRN Reason: Hypoglycemia Protocol Stop: 04/26/22 22:14 Glucose (Glucose 10 Tab/Tube) 4 - 8 tab PO UD PRN; Protocol PRN Reason: Hypoglycemia Protocol Stop: 04/26/22 22:14 Guaifenesin (Guaifenesin 600 Mg Tabcr) 1,200 mg PO BID PRN PRN Reason: Congestion Stop: 04/26/22 21:42 Last Admin: 03/28/22 08:30 Dose: 1,200 mg Heparin Sodium (Porcine) (Heparin Sod 5,000 Unit/0.5 Ml Vial) 5,000 units SQ Q12 JASON Stop: 04/26/22 21:42 Last Admin: 03/28/22 20:23 Dose: 5,000 units Hydralazine HCl (Hydralazine Hcl 20 Mg/Ml Vial) 5 mg IV Q6H PRN PRN Reason: Hypertension Stop: 04/26/22 21:53 Hydroxyzine HCl (Hydroxyzine Hcl 25 Mg Tab) 25 mg PO Q6 PRN PRN Reason: Itching Stop: 04/26/22 21:42 Doxycycline Hyclate 100 mg/ (Dextrose) 110 mls @ 50 mls/hr IV Q12H [facility] Stop: 04/07/22 07:59 Last Infusion: 03/28/22 22:47 Dose: Infused Ceftriaxone Sodium 2,000 mg/ (Dextrose) 70 mls @ 100 mls/hr IV Q24H [facility]; Protocol Stop: 04/07/22 17:59 Last Infusion: 03/28/22 19:29 Dose: Infused Insulin Aspart (Insulin Aspart Per Unit) 0 units SC ACHS [facility] Stop: 04/26/22 21:42 Last Admin: 03/28/22 21:55 Dose: Not Given Insulin Glargine (Lantus Per Unit Charge) 56 units SQ QAM [facility] Stop: 04/27/22 08:59 Last Admin: 03/28/22 09:35 Dose: 56 units Levothyroxine Sodium (Levothyroxine Sodium 50 Mcg Tablet) 50 mcg PO DAILYBB [facility] Stop: 04/27/22 06:29 Last Admin: 03/29/22 05:27 Dose: 50 mcg Miscellaneous (Carbohydrates For Hypoglycemia ) 15 - 30 gm PO UD PRN PRN Reason: Hypoglycemia Treatment Stop: 04/26/22 22:14 Montelukast Sodium (Montelukast Sodium 10 Mg Tablet) 10 mg PO PM [facility] Stop: 04/26/22 21:42 Last Admin: 03/28/22 20:23 Dose: 10 mg Nitroglycerin (Nitroglycerin Sl 0.4 Mg/Tab Tab) 0.4 mg SL UD PRN PRN Reason: Chest Pain Stop: 04/26/22 21:42 Ondansetron HCl (Ondansetron Inj 2 Mg/Ml 2 Ml Vial) 4 mg IV Q6H PRN PRN Reason: Nausea Stop: 04/26/22 21:42 Pantoprazole Sodium (Pantoprazole 40 Mg Tab) 40 mg PO QAM [facility] Stop: 04/27/22 08:59 Last Admin: 03/28/22 08:29 Dose: 40 mg Primidone (Primidone 50 Mg Tab) 50 mg PO HS [facility] Stop: 04/26/22 21:42 Last Admin: 03/28/22 20:21 Dose: 50 mg Propranolol HCl (Propranolol Hcl 10 Mg Tab) 10 mg PO BID [facility] Stop: 04/26/22 21:42 Last Admin: 03/28/22 20:23 Dose: 10 mg Rosuvastatin Calcium (Rosuvastatin Calcium 20 Mg Tab) 40 mg PO QPM [facility] Stop: 04/26/22 21:42 Last Admin: 03/28/22 20:23 Dose: 40 mg
[2022-03-29] MEDS: PANTOprazole 40 MG TAB PO SCH (08:19)
[2022-03-29] MEDS: buPROPion HCl 75 MG TABLET PO SCH (08:19)
[2022-03-29] MEDS: GABAPENTIN 100 MG CAP PO SCH (08:19)
[2022-03-29] MEDS: DICYCLOMINE HCL 10 MG CAP PO SCH (08:19)
[2022-03-29] MEDS: FLUTICASONE/VILANTEROL 200/25MCG 14 PUFFS/INHALER INH SCH (08:20)
[2022-03-29] MEDS: HEPARIN SOD 5,000 UNIT/0.5 ML VIAL SQ SCH (08:20)
[2022-03-29] MEDS: LANTUS PER UNIT CHARGE SQ SCH (08:20)
[2022-03-29] MEDS: PROPRANOLOL HCL 10 MG TAB PO SCH (08:20)
[2022-03-29] MEDS: allopurinoL 100 MG TAB PO SCH (08:20)
[2022-03-29] MEDS: DOXYCYCLINE HYCLATE 100 MG in DEXTROSE 5% 100 ML IV SCH (08:27)
[2022-03-29] MEDS: INSULIN ASPART PER UNIT SC SCH (08:28)
--- NOTE | 2022-03-29 12:26 | Discharge Summary ---
Date of Service March 29, 2022 Admission HPI Per Admitting Provider This is a 77-year-old female with past medical history significant for type 2 diabetes, diabetic peripheral vascular disease, diabetic neuropathy, chronic kidney disease stage III, hyperlipidemia, subclinical hypothyroidism, bronchiectasis with chronic rhinitis, moderate persistent asthma without complication, GERD, vitamin D deficiency, ulcerative colitis, restless legs syndrome, gout arthropathy, rosacea, essential tremor,MUGS, psoriasis, depression, history of tobacco abuse, history of long COVID, who presents with a pressure feeling in the bladder and not able to micturate for last few days.Urine culture as outpatient was negative. As symptoms were not getting better, she came to the ER.In ER she was having rigors and chills and spiked fever.Was empirically given Rocephin, but urinalysis came back negative. There is no tick bite and she does not go to the [place], though she has a dog. CT abdomen and pelvis and CXR was okay. Empirically started also on doxycycline for possible tick-borne illness, but so far anaplasmosis smear and Lyme disease came back negative. COVID came back negative. Currently, resting comfortably, hemodynamically stable. Denies any headache. No blurred visions, no earache, no runny nose, no sore throat, no cough, no difficulty swallowing. Appetite was poor for the last few days. No chest pain, no shortness of breath, no nausea, no vomiting, no abdominal pain, no diarrhea or constipation. No swelling in the legs. Lately, last few days, she is somewhat wobbly while ambulating because of feeling weak and fatigued. Recently, she also saw ID on 03/25/2022. She has had a cough for 2 years and a respiratory culture was done in December 2021, has grown MAC and ID has recommended to treat with azithromycin, rifampin, and ethambutol. The patient states she has not started those medications yet. Admission Exam Per Admitting Provider GENERAL: The patient is obese, not in acute distress. VITAL SIGNS: Temperature T-max 39.2, pulse 78, respiratory rate 14, blood pressure 133/74, oxygen 98% on room air. HEENT: Pupils equal, round and reactive to light. Oral mucosa moist. NECK: No JVD, neck masses. CARDIOVASCULAR: S1 and S2 heard. Regular rate and rhythm. No murmur, no gallop. RESPIRATORY SYSTEM: Normal AP diameter. No accessory muscle use. No wheezing, no crackles. ABDOMEN: Soft, bowel sounds present, nontender, no distention. CENTRAL NERVOUS SYSTEM: Cranial nerves II-XII grossly intact, nonfocal. EXTREMITIES: No edema, no erythema. Principal Diagnosis fever of unknown origin Discharge Exam GENERAL: The patient is obese, not in acute distress. HEENT: Pupils equal, round and reactive to light. Oral mucosa moist. NECK: No JVD, neck masses. CARDIOVASCULAR: S1 and S2 heard. Regular rate and rhythm. No murmur, no gallop. RESPIRATORY SYSTEM: Normal AP diameter. No accessory muscle use. No wheezing, no crackles. ABDOMEN: Soft, bowel sounds present, nontender, no distention. CENTRAL NERVOUS SYSTEM: Cranial nerves II-XII grossly intact, nonfocal. EXTREMITIES: No edema, no erythema. Discharge Data Allergies Allergy/AdvReac Type Severity Reaction Status Date / Time formaldehyde Allergy Unknown SKIN Verified 03/27/22 20:49 IRRTIATION AND PEELING Isothiazolinones Allergy Unknown SKIN Verified 03/27/22 20:49 IRRITATION AND PEELING quaternium 15 Allergy Unknown SKIN Verified 03/27/22 20:49 IRRITATION AND PEELING Consultations 03/27/22 19:37 ED Decision to Admit Stat Ordered Studies 03/27/22 16:01 CT abd pelvis IV con only Stat 03/28/22 11:41 CT chest without contrast [CT chest diagnostic wo con] Routine Hospital Course (1) Fever: - history points to urinary source but UA negative for infection - CXR unrevealing, blood cultures drawn - of note, has not started treatment for MAC prior to presentation for which she was prescribed 03/25/2022 after positive sputum culture following with ID - empirically started on ceftriaxone and doxycycline as well - concern for possible tick borne illness as well - work up sent but negative - will monitor for response on the above - trend fever - will give empiric course of 5-7 days of antibiotics - afebrile >24 hours (2) Thrombocytopenia: - new finding - no signs of bleeding - could be in setting of tick borne illness - CT-AP without comment on liver - HIV and hepatitis panel sent - HIT in differential but stable from yesterday so less likely - RUQ US - PLT stable - will monitor for now - outpatient follow up most likely after treatment (3) Leukopenia: - unclear etiology - ANC >1500 - right lung pulmonary nodule with increase in size - will need outpatient follow up with PCP and pulm (4) Transaminitis: - has history of the same - could be NAFLD - stable - RUQ US Plan DVT ppx: heparin SC Full Code Dispo: likely discharge home today 03/29/2022 Lawson Sorto MD [facility] Medicine Total Time Total Time Spent Total Time Spent (In Minutes): 20 Total Time Includes: Examination of the Patient, Discharge Planning and Medication Reconciliation Discharge Plan Discharge Items Patient Disposition: Home - Self-Care Reason For Visit: URINARY SYMPTOMS Discharge Diagnosis: fever of unknown origin Activity: Resume your previous activity Non-emergency contact: Primary Care Provider and Specialist Call non-emergency contact if: you have any medication questions, your symptoms worsen and you have a fever Follow-up/Referrals: Teresa Lomeli PA-C [Primary Care Provider] - Diet: Carb Consistent or DM2 and Heart Healthy Addtl Attending Provider Instructions: You were admitted for a fever but it was unclear where it was coming from as all the tests were negative so far. You remained without fever after starting antibiotics called doxycycline and ceftriaxone. You had a CT chest that showed a enlarging nodule in the right lung that should be followed up by your primary care doctor and to potentially see a label printer. You should also have repeat blood work done to monitor your platelets and your kidney function. Follow up with your Infectious diseases doctor as well for your ongoing pulmonary infection that you have been working up with them. Pending Studies at Discharge: No Stand-Alone Forms: My [facility], Smoking Cessation Medications and DC Order Prescriptions: New levofloxacin 750 mg tablet 750 mg PO DAILY 4 Days Qty: 4 0RF doxycycline hyclate 100 mg capsule 100 mg PO BID 7 Days Qty: 14 0RF Continued propranolol 10 mg Tablet 10 mg PO BID Qty: 0 Rx Instructions: am & hs fenofibrate nanocrystallized 145 mg Tablet 145 mg PO QPM Qty: 0 pantoprazole 40 mg Tablet,Delayed Release (Dr/Ec) 40 mg PO QAM Qty: 0 omega [id number]-fish oil [Fish Oil] 60-90-500 mg Capsule 1 cap PO BID Qty: 0 montelukast 10 mg Tablet 10 mg PO PM Qty: 0 levocetirizine 5 mg Tablet 5 mg PO PM Qty: 0 allopurinol 100 mg Tablet 200 mg PO QAM Qty: 0 lisinopril 10 mg Tablet 10 mg PO QPM Qty: 0 rosuvastatin 40 mg Tablet 40 mg PO QPM Qty: 0 diphenoxylate-atropine 2.5-0.025 mg Tablet 1 tab PO BID Qty: 0 flaxseed oil 1,000 mg Capsule 1,000 mg PO QAM Qty: 0 dicyclomine 10 mg Capsule 10 mg PO BID Qty: 0 Tresiba FlexTouch U-100 100 unit/mL (3 mL) insulin pen 56 unit SUBCUT QAM levothyroxine 50 mcg tablet 50 mcg PO DAILYBB gabapentin 100 mg capsule 200 mg PO BID primidone 50 mg tablet 50 mg PO HS bupropion HCl 75 mg tablet 75 mg PO BID benzonatate 100 mg capsule 100 mg PO TID PRN (Reason: cough) Qty: 20 0RF albuterol sulfate [Ventolin HFA] 90 mcg/actuation Hfa Aerosol Inhaler 2 puff INHALATION Q6H PRN (Reason: Shortness Of Breath Or Wheezing) Qty: 8.5 0RF ipratropium-albuterol 0.5 mg-3 mg(2.5 mg base)/3 mL solution for nebulization 3 ml INHALATION Q6 PRN (Reason: Shortness Of Breath Or Wheezing) albuterol sulfate 2.5 mg /3 mL (0.083 %) Solution For Nebulization 2.5 mg INHALATION DIRECTED PRN (Reason: Shortness Of Breath Or Wheezing) acetaminophen [Tylenol Extra Strength] 500 mg Tablet 1,000 mg PO Q6H PRN (Reason: Pain) clobetasol 0.05 % foam 1 applic TOPICAL DAILY PRN (Reason: flare up) hydroxyzine HCl 25 mg Tablet 12.5 - 25 mg PO Q6 PRN (Reason: Itching) cholestyramine (with sugar) 4 gram Powder In Packet 4 g PO ACHS Rx Instructions: no meds 1 hr before/4-6 hr after dose fluticasone furoate-vilanterol [Breo Ellipta] 200-25 mcg/dose blister with device 1 ea INHALATION QAM guaifenesin 1,200 mg tablet extended release 12hr 1,200 mg PO BID PRN (Reason: Congestion) Discharge Orders: Discharge Order (Routine); Ordered 03/29/22 Ordered By: Lawson Sorto Admission Data Admit Date/Time: 03/27/22 20:44 Attending Provider: Lawson Sorto Admit Provider: Milton Humphrey Primary Care Provider: Teresa Lomeli Other Providers: Milton Humphrey Other Interventions: Discharge Summary Assessment (RN) Last Done: 03/29/22 11:12
[2022-03-30 05:12] LABS: HBSAG NON-REACTIVE (NON-REACTIVE); Hepatitis A Antibody IgM NON-REACTIVE (NON-REACTIVE); Hepatitis B Core Antibody IgM NON-REACTIVE (NON-REACTIVE)
[2022-03-31 15:31] LABS: Babesia microti DNA Not Detected (Not Detected)
== END 2022-03-29 12:12 | disposition home or self-care (01) ==
LOC: ED 13:29 → 2W 20:44 → INTOOBSV 20:44 → 2W 21:18
DX: D72.819 Decreased white blood cell count, unspecified; R74.01 Elevation of levels of liver transaminase levels; N18.30 Chronic kidney disease, stage 3 unspecified; E78.5 Hyperlipidemia, unspecified; K21.9 Gastro-esophageal reflux disease without esophagitis; I12.9 Hypertensive chronic kidney disease with stage 1 through stage 4 chronic kidney disease, or unspecified chronic kidney disease; Z79.4 Long term (current) use of insulin; D69.6 Thrombocytopenia, unspecified; Z79.899 Other long term (current) drug therapy; M10.9 Gout, unspecified; R50.9 Fever, unspecified; Z88.8 Allergy status to other drugs, medicaments and biological substances; E03.9 Hypothyroidism, unspecified; E11.9 Type 2 diabetes mellitus without complications